=== PATIENT | female | born 1950 | race African-American/Black ===

== ENCOUNTER 2021-01-28 15:00 | Outpatient (RCR) | payer MEDICARE, SELFPAY ==
[2021-01-28 15:14] VITALS: BMI 26.8
[2021-01-28 15:18] VITALS: BMI 26.8
== END 2021-02-01 16:36 | disposition home or self-care (01) ==
LOC: ANHDMC 15:00
PROVIDERS: Visit Provider Internal Medicine Endocrinology, Diabetes & Metabolism
DX: E11.65 Type 2 diabetes mellitus with hyperglycemia (principal); Z71.3 Dietary counseling and surveillance; Z71.89 Other specified counseling
CPT/HCPCS: 97802; G0108; G0109

== ENCOUNTER 2025-02-28 11:21 | Outpatient (CLI) | payer MEDICARE, SELFPAY ==
--- OUTSIDE RECORDS SUMMARY | 2025-02-28 11:37 | XMS_ITS | Clinical Summary ---
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 Gender Identity Not on file Sexual Orientation Not on file Plan of Treatment Health Maintenance Due Date Last Done Comments DEXA Bone Density 1950 Hepatitis C Virus (HCV) Screening 1950 TdaP Immunization 1949 Colonoscopy 1994 Colorectal Cancer Screening 1994 Cologuard 1999 Immunochemical Fecal Occult Blood 1999 Mammogram 1999 Pneumococcal Immunization (5 0+ years) (1 of 1 - PCV) 1999 Zoster Immunization (1 of 2) 1999 Influenza Immunization (#1) 2024 SARS-COV-2 Immunization ( season) 2024 08/19/2021, 01/19/2021, 12/25/2020 Respiratory Syncytial Virus (RSV) Immunization (Adult) (1 - 1-dose 75+ series) 2024 Hepatitis B Immunization Aged Out No longer eligible based on patient's age to complete this topic Meningococcal Immunization (ACWY) Aged Out No longer eligible b ased on patient's age to complete this topic Rotavirus Immunization Aged Out No lo nger eligible based on patient's age to complete this topic
--- OUTSIDE RECORDS SUMMARY | 2025-02-28 11:37 | XMS_ITS | Clinical Summary ---
Author Organization [facility] 1 Address [facility] [place] [address] Care Team Providers Care Informatica Developer Name Role Phone Radha Duff MD Primary Care Provider [phone] Stew Garcia MD Unavailable [phone] Allergies No known active allergies Medications candesartan (ATACAND) 32 mg tabletIndicatio ns:hypertension Take 1 tablet (32 mg total) by mouth every morning 3 Active Voltaren 1 % gelIndications: Osteoarthritis, Pain Apply 2 g topically 4 (four) times a day as needed (pain) 3 Active allopurinoL (ZYLOPRIM) 100 mg tabletIndicatio ns:Recurrent Calcium Renal Calculi Take 1 tablet (100 mg total) by mouth canal lock tender chief operator before breakfast Active baclofen (LIORESAL) 10 mg tabletIndicatio ns:Muscle Spasticity of Spinal Origin Take 1 tablet (10 mg total) by mouth 2 (two) times a day as needed for muscle spasms Active ezetimibe (ZETIA) 10 mg tabletIndicatio ns:hyperlipidem ia Take 1 tablet (10 mg total) by mouth canal lock tender chief operator before breakfast Active rosuvastatin (CRESTOR) 40 mg tabletIndicatio ns:hyperlipidem ia Take 1 tablet (40 mg total) by mouth nightly Active metFORMIN XR (GLUCOPHAGE XR) 500 mg 24 hr tabletIndicatio ns:type 2 diabetes mellitus Take 2 tablets (1,000 mg total) by mouth 2 (two) times a day with meals Active albuterol HFA (PROVENTIL HFA,VENTOLIN HFA,PROAIR HFA) 90 mcg/actuation inhaler Inhale 2 puffs every 4 (four) hours as needed for wheezing or shortness of breath Active lidocaine (LIDODERM) 5 %Indications:Ne uropathic pain Place 2 patches on the skin daily Place 1 patch over the right hip and 1+ over the left shoulder blade. Remove & discard patch within 12 hours or as directed by MD. 60 patch 3 4 Active furosemide (LASIX) 40 mg tabletIndicatio ns:Edema Take 1 tablet (40 mg total) by mouth canal lock tender chief operator before breakfast 4 Active biotin 1 mg capsuleIndicati ons:supplement Take 1 tablet by mouth canal lock tender chief operator before breakfast Active escitalopram (LEXAPRO) 10 mg tabletIndicatio ns:Anxiety with Depression Take 1 tablet (10 mg total) by mouth nightly Active insulin lispro (HumaLOG, ADMELOG) 100 unit/mL pen for injectionIndica tions:type 2 diabetes mellitus Inject 5 Units under the skin 3 (three) times a day before meals Add 1 unit for every 25 BG over 200 Active camphor-methyl salicyl-menthoL adhesive patch,medicated Indications:bashir n Apply 2 patches topically daily as needed (pain) Place 1 patch over the right hip and 1+ over the left shoulder blade. Remove & discard patch within 12 hours or as directed by MD. Active traZODone (DESYREL) 100 mg tabletIndicatio ns:insomnia associated with depression Take 1 tablet (100 mg total) by mouth nightly Active carvediloL (COREG) 25 mg tablet Take 1 tablet (25 mg total) by mouth 2 (two) times a day with meals 60 tablet 11 4 10/22/20 25 Active Additional Information Patient taking differently:25 mg oral 2 times daily with meals (bkfst, dinner),Indications: hypertension, Informant: Self, Reported on 02/05/2025 amLODIPine (NORVASC) 10 mg tablet Take 1 tablet (10 mg total) by mouth daily 30 tablet 11 4 10/23/20 25 Active Additional Information Patient taking differently:10 mg oralDaily (early AM), Indications: hypertension, Informant: Self, Reported on 02/05/2025 aspirin 81 mg enteric coated tabletIndicatio ns:Deep Vein Thrombosis Prevention Take 1 tablet (81 mg total) by mouth daily 30 tablet 11 4 10/23/20 25 Active Additional Information Patient taking differently:81 mg oralDaily (early AM), Indications: prevention of thrombosis, Informant: Self, Reported on 02/05/2025 insulin degludec (TRESIBA) 100 unit/mL (3 mL) pen for injectionIndica tions:type 2 diabetes mellitus Inject 0.2 mL (20 Units total) under the skin nightly Active ketoconazole (NIZORAL) 2 % creamIndication s:tinea pedis Apply 1 Application topically 2 (two) times a day Active sodium chloride (Guido 128) 5 % ophthalmic solutionIndicat ions:Dry eye Administer 1 drop into both eyes 3 (three) times a day Active ticagrelor (BRILINTA) 90 mg tablet Take 1 tablet (90 mg total) by mouth 2 (two) times a day 60 tablet 2 5 Active acetaminophen 500 mg capsuleIndicati ons:Pain Take 2 capsules (1,000 mg total) by mouth every 6 (six) hours as needed for pain 5 Active methylPREDNISol one (MEDROL) 4 mg tablet Take 4 tablets (16 mg total) by mouth daily for 1 day, THEN 3 tablets (12 mg total) daily for 1 day, THEN 2 tablets (8 mg total) daily for 1 day, THEN 1 tablet (4 mg total) daily for 1 day. 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 Rx AT's and Lita, pt not taking. 12/05/24 SPEE and guttae on exam. Assessment & Plan (12/05/2024 7:50 PM GLOBAL SECURITY ARCHITECT): - AT's & warm compress for diffuse SPEE - CTM guttae - RTC 1 y for yearly exams Ischemic stroke 10/20/2024 Orthopedic aftercare 07/09/2024 S/P total right hip arthroplasty 07/09/2024 Anemia 03/03/2024 Type II or unspecified type diabetes mellitus with neurological manifestations, not stated as uncontrolled(250.60) 02/12/2024 Stage 3b chronic kidney disease 01/26/2024 Cervical spinal stenosis 01/26/2024 Neuroforaminal stenosis of cervical spine 2023 Anxiety and depression 01/26/2024 Assessment & Plan (02/02/2024 4:13 PM CDT): Chronic, stable; cont rx lexapo, trazodone Type 2 diabetes mellitus wit h diabetic neuropathy, with long-term current use of insulin 01/26/2024 Assessment & Plan (02/02/2024 4:13 PM CDT): Cont rx insulin degludec, gabapentin, insulin lispro, metformin Type 2 diabetes mellitus wit h hyperglycemia, with long-term current use of insulin 01/26/2024 Bilateral hearing loss 01/25/2024 Neck pain 01/25/2024 Type 2 diabetes mellitus wit h chronic kidney disease, with long-term current use of insulin 01/25/2024 Assessment & Plan (02/02/2024 4:13 PM CDT): Follow up lab ordered Uncontrolled stage 2 hypertension 01/25/2024 Hyperlipidemia 01/25/2024 Assessment & Plan (02/02/2024 4:12 PM CDT): Chronic, stable; cont rx rosuvastatin, ezetimibe Trochanteric bursitis of right hip 10/13/2023 Low back pain 10/13/2023 Assessment & Plan (02/02/2024 4:14 PM CDT): Cont rx gabapentin, lidocaine, meloxicam Primary osteoarthritis of right hip 10/13/2023 Right hip pain 10/13/2023 Solitary pulmonary nodule 12/27/2022 Osteoarthritis 12/08/2021 Heart failure with preserved ejection fraction 0 01/27/2021 Assessment & Plan (02/02/2024 4:12 PM CDT): Chronic, stable; cont rx asa, ezetimibe Cholelithiasis without obstruction 06/04/2019 Overview (01/31/2024): on CT chest 06/04/[address] chest 06/04/19 Sleep apnea 11/21/2018 Overview (01/31/2024): cardiology started CPAP cardiology started CPAP Coronary arteriosclerosis 05/15/2018 Overview (01/31/2024): on chest CT 11/17/[address] 11/17/17 Assessment & Plan (02/02/2024 4:12 PM CDT): Cont asa, zetia, crestor Tobacco use disorder, continuous 05/12/2016 Overview (01/31/2024): told java spring developer he quit smoking on 05/23/18 told java spring developer he quit smoking on 05/23/18 Vitamin D deficiency 05/12/2016 Resolved Problems Problem Noted Date Diagnosed Date Resolved Date Accidental fall from bed 01/26/202411/2023 Gait instability 01/25/2024 02/05/2024 Assessment & Plan (02/02/2024 4:14 PM CDT): I endorse admission to [facility] care. The patient is at risk of injury, illness and a requirement for a higher level of care without this service. The patient needs assistance from the nurses and care team for all activities of daily living including dressing, hygeine of person and toilet, safe transfer and mobility, dietary needs, medication administration, and grooming. The patient will need physical and occupational therapy to progress to a safer level of care. Constipation 01/25/2024 02/05/2024 Dyslipidemia 04/04/2022 02/02/2024 Chronic renal failure 11/11/20162023 Encounters Date Type Department Care Team Description 02/27/2025 Telephone [facility] Neurosurgery [address] [place] [address] [place] [address] Lazaro Flores MD 02/17/2025 12:00 PM CDT Telemedicine [facility] [address] [place] [address], [address] [place] [address] Kamari Reyes MD Neck pain (Primary Dx) 02/05/2025 3:45 PM CDT - 02/06/2025 12:20 PM CDT Hospital Encounter [address] [address] Lazaro Flores MD Roller, Evan Ward, MD Reynolds, Troy Wayne, CRNA Cerebral aneurysm, nonruptured Discharge Disposition: Discharge to home or self care 02/05/2025 11:38 AM CDT Anesthesia Event [facility] Neuro Interventional Radiology [address] [place] [id number] Angelic Hodgson MD Reynolds, Troy Wayne, CRNA 01/30/2025 Orders Only Radiology [address] [place] [id number] Janice Story PA 01/30/2025 Orders Only [facility] Neurosurgery [address] [facility] [place] [address] [place] [address] Lazaro Flores MD 01/29/2025 1:00 PM CDT Pre-Admission Testing [facility] for Preoperative Assessment and Planning [facility] [address] [place] [id number] Preoperative testing (Primary Dx); Bruising; Cerebral aneurysm, nonruptured 12/03/2024 12:00 PM GLOBAL SECURITY ARCHITECT Office Visit [facility] Stroke [address] [place] [address] Ty Mckee NP Cerebrovascular accident (CVA) due to other mechanism (HCC) (Primary Dx); Essential hypertension; Hyperlipidemia LDL goal <70; Hospital discharge follow-up 12/02/2024 1:30 PM GLOBAL SECURITY ARCHITECT Office Visit [facility] Ophthalmology [address] [place] [address] [address] [place] [address] Alana Pathak MD Blurred vision, bilateral (Primary Dx) from Last 3 Months Immunizations Immunization Administration Dates Next Due Influenza, Quadrivalent, Hig h Dose, Preservative Free, Intrr 09/01/2021,08/21/2020 Influenza, Quadrivalent, Spl it, Intramuscular 08/21/2020,08/15/2018,07/22/2016 Influenza, Trivalent, Adjuva nted, Intramuscular 08/07/2018 Influenza, Trivalent, High D ose, Split, Preservative Free, Intramuscular 07/27/2022,08/26/2019,08/14/2017,08/13 Moderna SARS-CoV-2 Monovalen t Vaccination (12+ YRS) 08/06/2021 Pneumococcal Conjugate PCV 13 08/21/2018, 016 Pneumococcal Polysaccharide PPV23 08/21/2020,07/2017,08/13/2017 Tdap 08/06/2018 ZOSTER LIVE 03/05/2019 ZOSTER Recombinant 03/05/2019,12/03/2018 Surgical History Surgery Date Site/Laterality Comments HYSTERECTOMY partial BREAST BIOPSY Left benign APPENDECTOMY 11/06/2003 - 11/05/2004 perforated SECTION x1 COLONOSCOPY normal ANGIO SELECTIVE INTERNAL CAR OTID RIGHT 10/21/2024 Right Medical History Medical History Date Comments Primary osteoarthritis of right hip Anterolisthesis of lumbar spine Lumbar facet arthropathy Hypertension Hypercholesteremia Depression Type 2 diabetes mellitus (HCC) I DDM, wears Dexcom Sleep apnea Family History Medical History Relation Name Comments PONV Daughter Hyperlipidemia Father Hypertension Father Lung cancer Father Lung cancer Father's Brother Colon cancer Mother Heart attack Mother Hyperlipidemia Mother Hypertension Mother Stroke Mother Thyroid disease Mother Heart disease Mother's Brother Stroke Mother's Sister Relation Name Status Comments Daughter Alive Father Father's Brother Mother Mother's Brother Mother's Sister Social History Tobacco Use Types Packs/Day Years Used Date Smoking Tobacco: Former Cigarettes 0.2 20 1 - 2017 Smokeless Tobacco: Never Tobacco Cessation:Counseling Given: Not Answered [facility] Utilities Answer Date Recorded In the past 12 months has th e electric, gas, oil, or water company threatened to shut off services in your home? No 06/25/2024 Social Connection and Isolat ion Panel [NHANES] Answer Date Recorded In a typical week, how many times do you talk on the phone with family, friends, or neighbors? More than three times a week 06/25/2024 How often do you get togethe r with friends or relatives? More than three times a week 06/25/2024 How often do you attend chur ch or taoist services? 1 to 4 times per year 06/25/2024 Do you belong to any clubs o r organizations such as buddhism groups, unions, fraternal or athletic groups, or school groups? No 06/25/2024 How often do you attend meet ings of the clubs or organizations you belong to? Never 06/25/2024 Are you , , di vorced, , never , or living with a partner? 06/25/2024 AUDIT-C Answer Date Recorded Q1: How often do you have a drink containing alcohol? Never 02/05/2025 Q2: How many drinks containi ng alcohol do you have on a typical day when you are drinking? Patient does not drink Q3: How often do you have si x or more drinks on one occasion? Never 02/05/2025 Overall Financial Resource Strain (CARDIA) Answe r Date Recorded How hard is it for you to pa y for the very basics like food, housing, medical care, and heating? Not hard at all 06/25/2024 PHQ-2 Answer Date Recorded PHQ-2 Total Score (If total score is 3 or more points, staff should administer the PHQ-9) 0 10/21/2024 Hunger Vital Sign Answer Date Recorded Within the past 12 months, y ou worried that your food would run out before you got the money to buy more. Never true 06/25/20 24 Within the past 12 months, t he food you bought just didn't last and you didn't have money to get more. Never true 06/25/2024 PRAPARE - Transportation Answer Date Re corded In the past 12 months, has l ack of transportation kept you from medical appointments or from getting medications? No 06/07 In the past 12 months, has l ack of transportation kept you from meetings, work, or from getting things needed for daily living? No 06/25/2024 Housing Stability Vital Sign Answer Chito e Recorded In the last 12 months, was t here a time when you were not able to pay the mortgage or rent on time? No 01/26/2024 In the last 12 months, how many places have you lived? 1 01/26/2024 In the last 12 months, was t here a time when you did not have a steady place to sleep or slept in a group home (including now)? No 01/26/2024 Housing Stability Vital Sign Answer Chito e Recorded In the last 12 months, was t here a time when you were not able to pay the mortgage or rent on time? No 06/25/2024 In the past 12 months, how m any times have you moved where you were living? 0 06/25/2024 At any time in the past 12 m [facility], were you homeless or living in a group home (including now)? No 06/25/2024 Personal Safety Answer Date Recorded Have you ever been in or are you currently in a harmful physical or emotional relationship or is someone making you feel afraid or unsafe? Denies 02/05/2025 Comments No Sex and Gender Information Value Date Recorded Sex Assigned at Not on file Legal Sex Female 8:50 PM GLOBAL SECURITY ARCHITECT Gender Identity Not on file Sexual Orientation Not on file Obstetrics History Para Term AB IAB SAB Ectopic Multiple Livin g Live Births 4 4 4 Date Outcome GA Total Labor Labor/2nd/3rd Weight Sex Type Anes PTL Kala A1 A5 Name Clin Term Term Term Term Last Filed Vital Signs Vital Sign Reading Time Taken Comments Blood Pressure 149/80 02/06/2025 10:00 AM CDT Pulse 89 02/06/2025 10:00 AM CDT Temperature 37.2 C (99 F) 02/06/2025 10:07 AM CDT Respiratory Rate 17 02/06/2025 10:00 AM CDT Oxygen Saturation 98% 02/06/2025 10:00 AM CDT Inhaled Oxygen Concentration - - Weight 84.6 kg (186 lb 8.2 oz) 01/29/2025 1:15 P M CDT Height 167.6 cm (5' 6 ) 01/29/2025 1:15 PM CDT Body Mass Index 30.1 01/29/2025 1:15 PM CDT Plan of Treatment Health Maintenance Due Date Last Done Comments Albumin Creatinine Ratio, Urine 1950 Colon Cancer Screening-Colonoscopy 1950 Hepatitis C Screening 1950 Foot Exam 1950 Hepatitis B Screening 1967 Well Visit 65+ 2014 Covid-19 Vaccine (2023-2 5 season) 2024 08/19/2021, 08/06/2021, 01/19/2021, Additional history exists Influenza Vaccine (Season Ended) 2025 07/27/2022, 09/01/2021, 08/21/2020, Additional history exists Hemoglobin A1C 08/01/2025 01/29/2025, 10/06, 06/10/2024, Additional history exists Osteoporosis Screening-Bone Density Scan 10/19/2025 10/19/2023, 06/21/2021, 06/14/2021, Additional history exists Depression Screening 10/20/2025 10/20/2024 Lipid Panel 10/20/2025 10/20/2024 Dilated Eye Exam 12/02/2025 12/02/2024, 10/21/2024 eGFR 01/29/2026 01/29/2025, 10/06, 10/20/2024, Additional history exists Fall Risk Assessment 02/06/2026 02/06/2025 DTaP/Tdap/Td Vaccine (2 - Td or Tdap) 08/06/2028 08/06/2018 Zoster Vaccine Completed 03/05/2019, 02/06, 12/03/2018 Pneumococcal vaccine 65+ Completed 020, 08/21/2018, 08/14/2017, Additional history exists Breast Cancer Screening-Mammogram Discontinued 05/29/2024, 03/27/2023, 12/22/2021, Additional history exists Medical Devices Implanted Type Area Intranet Support Device Identifier Shelf Expiration Date Model / Serial / Lot [employer] Trilogy 6.5mm 35mm Self Tap Screw Bone [id number] - [id number] Implanted:Qty: 1 on 06/24/2024 by Marc Matthews MD at [facility] Right: Hip [employer] [id number] 10/19/2033 [id number] / / [id number] [employer] G7 54mm Limit Hole Color Coded Hip F Offset Hemisphere Shell [id number] - [id number] Implanted:Qty: 1 on 06/24/2024 by Marc Matthews MD at [facility] Right: Hip [employer] [id number] 04/02/2034 [id number] / / [id number] [employer] G7 44mm 2 Mobility Hip F Liner Acetabular [id number] - [id number] Implanted:Qty: 1 on 06/24/2024 by Marc Matthews MD at [facility] Right: Hip [employer] [id number] 01/12/2034 [id number] / / [id number] [employer] Trilogy 6.5mm 30mm Self Tap Acetabular Cortical Screw Bone [id number] - [id number] Implanted:Qty: 1 on 06/24/2024 by Marc Matthews MD at [facility] Right: Hip [employer] [id number] 12/02/2033 [id number] / / [id number] [employer] Echo Bi-Metric Microplasty 10mm 101.5mm Full Proximal Profile Hip [id number] - [id number] Implanted:Qty: 1 on 06/24/2024 by Marc Matthews MD at [facility] Right: Hip [employer] [id number] 09/03/2030 [id number] / / [id number] [employer] Liner Acetabular Hip Longevity 07j88br Polyethylene [id number] - [id number] Implanted:Qty: 1 on 06/24/2024 by Marc Matthews MD at [facility] Right: Hip [employer] [id number] 04/08/2029 [id number] / / [id number] [employer] G7 28mm Type 1 Modular Hip Acetabular 0mm Offset Head Femoral 650-1158 - [id number] Implanted:Qty: 1 on 06/24/2024 by Marc Matthews MD at [facility] Right: Hip [employer] [id number] 05/15/2033 [id number] / / [id number] [employer] Stent Coil Embo With Shield Technology Pipeline 4.5x14mm Ped2-450-14 - [id number] Implanted:Qty: 1 on 02/05/[address] [facility] [employer] 07/25/2025 PED2-4 50-14 / / [id number] Procedures Procedure Name Priority Date/Time Associated Diagnosis Comments POCT GLUCOSE DEVICE Routine 02/06/2025 8 :13 AM CDT POCT GLUCOSE DEVICE Routine 02/05/2025 8 :23 PM CDT POCT GLUCOSE DEVICE Routine 02/05/2025 5 :17 PM CDT POCT GLUCOSE DEVICE Routine 02/05/2025 2 :31 PM CDT IR PERMANENT OCCLUSION OR EMBOLIZATION PERCUTANEOUS BMET Schedule Routine, Read Routine (OP Routine) 02/05/2025 2:03 PM CDT Cerebral aneurysm, nonruptured CO AN PROCEDURE PLACEHOLDER Routine 02/05/2025 12:33 PM CDT CO AN ELECTIVE ENDOTRACHEAL AIRWAY Routine 02/05/2025 12:33 PM CDT POCT ACTIVATED CLOTTING TIME, LOW RANGE Routine 02/05/2025 12:32 PM CDT CO AN PROCEDURE PLACEHOLDER Routine 02/05/2025 12:26 PM CDT CO AN PROCEDURE PLACEHOLDER Routine 02/05/2025 12:25 PM CDT POCT ACTIVATED CLOTTING TIME, LOW RANGE Routine 02/05/2025 12:13 PM CDT POCT GLUCOSE DEVICE Routine 02/05/2025 1 1:05 AM CDT VERIFY NOW CLOPIDOGREL Routine 02/05/2025 10:56 AM CDT EGFR Routine 01/29/2025 2:26 PM CDT Cerebral aneurysm, nonruptured DIFFERENTIAL AUTO Routine 01/29/2025 2:2 6 PM CDT Cerebral aneurysm, nonruptured BASIC METABOLIC PANEL Routine 01/29/2025 2:26 PM CDT Cerebral aneurysm, nonruptured CBC WITH AUTO DIFFERENTIAL Routine 01/29/2025 2:26 PM CDT Cerebral aneurysm, nonruptured CPAP APTT ALGORITHM Routine 01/29/2025 2 :26 PM CDT Preoperative testing PROTIME-INR Routine 01/29/2025 2:26 PM CDT Preoperative testing Bruising VERIFY NOW CLOPIDOGREL Routine 01/29/2025 2:26 PM CDT Cerebral aneurysm, nonruptured POCT HEMOGLOBIN A1C Routine 01/29/2025 2 :00 PM CDT LIPID PANEL Routine 10/20/2024 11:40 PM GLOBAL SECURITY ARCHITECT SCREENING MAMMOGRAM BILATERAL W ANKIT Schedule Routine, Read Routine (OP Routine) 05/29/2024 1:11 PM CDT Screening mammogram, encounter for DEXA AXIAL SKELETON BONE DENSITY 1 OR MORE SITES Schedule Routine, Read Routine (OP Routine) 10/19/2023 2:04 PM GLOBAL SECURITY ARCHITECT Asymptomatic menopausal state from Last 3 Months or Most Recently Relevant to Health Maintenance Results * (ABNORMAL) POCT glucose (02/06/2025 8:13 AM CDT) Glucose, POC 218(H) 70 - 199 mg/dL Blood 02/06/2025 8:13 AM CDT 02/06/2025 8:13 AM CDT Lazaro Flores MD LAB POCT ORDERABLES - DEVICE Final Result Performing Organization Address [facility] Co de Phone Number [facility] [place] [address] * (ABNORMAL) POCT glucose (02/05/2025 8:23 PM CDT) Glucose, POC 210(H) 70 - 199 mg/dL Blood 02/05/2025 8:23 PM CDT 02/05/2025 8:23 PM CDT Lazaro Flores MD LAB POCT ORDERABLES - DEVICE Final Result Performing Organization Address [facility] de Phone Number [facility] [employer] [place] [address] * POCT glucose (02/05/2025 5:17 PM CDT) Glucose, POC 99 70 - 199 mg/dL Blood 02/05/2025 5:17 PM CDT 02/05/2025 5:17 PM CDT Lazaro Flores MD LAB POCT ORDERABLES - DEVICE Final Result Performing Organization Address [facility] Co de Phone Number [facility] [employer] [place] [address] * POCT glucose (02/05/2025 2:31 PM CDT) Glucose, POC 106 70 - 199 mg/dL Blood 02/05/2025 2:31 PM CDT 02/05/2025 2:31 PM CDT Lazaro Flores MD LAB POCT ORDERABLES - DEVICE Final Result JOSIE Penny [facility] Department [place] [address] * IR Permanent Occlusion or Embolization BMET (02/05/2025 2:03 PM CDT) Anatomical Region Laterality Modality Radio Fluoroscop y 02/06/2025 8:52 AM CDT Impressions 02/12/2025 6:20 PM CDT 1. Initial angiography demonstrated a medially projecting paraophthalmic left ICA aneurysm measuring 7 x 4.5 mm with a 4 mm neck. There are no secondary/daughter lobules and no evidence of any arterial branches arising from the aneurysm dome. 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 There is also a 1.5 x 1.5 mm infundibulum associated with the left anterior choroidal artery. 2. Successful Pipeline Flex flow diversion embolization of the patient's left paraophthalmic ICA aneurysm with a 4.5 x 14 mm flow diversion embolization device. 3. Final angiography demonstrated contrast stasis within the left paraophthalmic segment ICA aneurysm consistent with satisfactory embolization with no evidence of thromboembolic complication. There was good apposition of flow diversion embolization device to the vessel wall with no evidence of in-device stenosis. Balloon-angioplasty of the flow diverter was performed to open the distal end of the device. These results were discussed with the patient and patient's family upon conclusion of the case. Dictated by: Antoni Hendricks M.D. The radiology attending physician has personally reviewed this study, and had reviewed and/or edited this written report and agrees with it. Electronically signed by: Lazaro Flores M.D. Narrative 02/12/2025 6:20 PM CDT ENDOVASCULAR EMBOLIZATION OF LEFT INTERNAL CAROTID ARTERY PARAOPHTHALMIC ANEURYSM UTILIZING FLOW DIVERSION CLINICAL INDICATION: This is a 74 year old female with known left paraophthalmic ICA aneurysm. She presents for endovascular embolization utilizing flow diversion. PROCEDURE: 1. Transarterial embolization, central nervous system: flow diverter embolization of left internal carotid artery aneurysm 2. Cerebral angiography: left common carotid artery, left internal carotid artery injections 3. 3D reconstructions 4. Ultrasound-guided vascular access ATTENDING PHYSICIAN: Lazaro Flores MD. He was present for the entire procedure. ASSISTING PHYSICIANS: MD Bj Kwon MD ANESTHESIA: General anesthesia DEVICES: 21-gauge needle 7 Macanese Merit Prelude IDeal sheath 23cm Terumo Glidewire Rist 079 guide catheter Rist 5.5F Sim select catheter Apro 55 intermediate catheter 120 cm Phenom 27 microcatheter 150 cm Synchro SELECT 014 microwire Pipeline Flex 4.5 x 14 mm Hyperform 4 x 7 mm balloon microcatheter X-pedion-10 microwire TR Band MEDICATIONS: Medications were administered by the department of anesthesiology and are included in the MAR. Radial artery cocktail: Verapamil (2.5 mg), Nitroglycerin (200 mcg), and Heparin (3000 units) 6500 units of intravenous heparin were administered. CONTRAST: Visipaque-320 100 mL ESTIMATED BLOOD LOSS: 20 mL COMPLICATIONS: None TECHNIQUE: Prior to the procedure, the technical aspects of the procedure, as well as benefits, potential risks and alternate options, were explained to the patient. Specifically, the risks of cerebral infarction, hemorrhage, weakness, paralysis, sensory changes, vision decline/blindness, cranial nerve palsy, facial pain, anaphylaxis, renal failure, access site hematoma, arterial dissection, arterial pseudoaneurysm, arteriovenous fistula, coma or even were discussed with the patient in person. Informed consent was obtained. General anesthesia was provided by the Department of Anesthesiology for the duration of the case. The patient was prepared and draped in the standard sterile fashion. The right forearm was prepped and draped in the usual fashion. Access to the vascular system was gained in the usual way by a single-wall puncture of the right radial artery at the anatomical snuff box utilizing ultrasound guidance. The 7 Macanese sheath was then introduced into the right radial artery over the mini guidewire. A cocktail of Verapamil (2.5 mg), Nitroglycerin (200 mcg), and Heparin (3000 units) was slowly injected into the right radial artery through the sheath over several minutes, with close monitoring of blood pressure. A baseline ACT was measured and IV heparin administered with periodic ACT checks to maintain goal range of 250-300. The Rist 079 guide catheter with Rist Cristina 2 catheter over a Terumo Glidewire was advanced into the long sheath and into the aortic arch under fluoroscopic visualization and was used select the left internal carotid artery. The long sheath was advanced to the petrous segment and the Cristina 2 catheter and Glidewire were removed. Digital angiograms were performed, centered over the head and neck with AP, lateral, and oblique views. 3D ROTATIONAL ANGIOGRAPHY OF THE LEFT INTERNAL CAROTID ARTERY: Rotational angiography was also performed from the guiding catheter for better delineation of the left internal carotid artery aneurysm. Three-dimensional angiographic images were processed on an independent workstation, and volume-rendered three-dimensional images were produced and reviewed by the attending physician. A working projection was obtained. Contrast was injected into the long sheath positioned within the petrous ICA for imaging centered over the aneurysm in working projection. A coaxial assembly of [employer] Apro 55 intermediate catheter with Phenom 27 microcatheter and Synchro select 014 microwire was prepared in standard fashion over series of rotating hemostatic valves connected to a regulated pressurized infusion of heparinized saline. This coaxial assembly was gently advanced into the long sheath within the left internal carotid artery under roadmap guidance and the microcatheter and microwire assembly was advanced into the left middle cerebral artery. The intermediate catheter was advanced into the cavernous segment internal carotid artery. The microwire was then removed. A 4.5 x 14 mm Pipeline Flex embolization device was then advanced through the microcatheter. Under continuous fluoroscopic visualization, the Pipeline Flex device was carefully deployed across the aneurysm. Throughout deployment interval injections of contrast into the intermediate catheter for imaging centered over the aneurysm in working projection were obtained. Still series images were also obtained intermittently through the deployment. The proximal end of the device was positioned in the cavernous segment and the distal end in the terminal segment near the origin of the anterior choroidal artery but not fully covering the vessel. Immediately after deployment of the Pipeline Flex flow diversion device, angiography demonstrates good opening of the proximal segment of the device with narrowing of the distal end. We attempted to open up the distal end of the device using a microwire with a J-shape as well as advancing the intermediate catheter with mild improvement in the narrowing. We elected to proceed with post-deployment balloon angioplasty. An additional 1000 units IV heparin was administered. A Hyperform balloon catheter with X-pedion 10 was prepared on the back table using 50:50 contrast: saline ratio in standard fashion. The balloon catheter was advanced through the intermediate catheter towards the distal end of the pipeline device using fluoroscopic guidance. The balloon was inflated at three separate points along the distal end of the device. The catheter and microwire was then removed. Angiography through the intermediate catheter demonstrated good vessel wall apposition of the stent with good antegrade flow without thrombotic complication. The intermediate catheter was removed and the guide catheter was withdrawn into the cervical ICA. Contrast was injected into the long sheath positioned within the left internal carotid artery for imaging centered over the head in AP and lateral projections. This revealed contrast stasis within the left internal carotid artery aneurysm consistent with satisfactory embolization with no evidence of thromboembolic complication. There was good apposition of the flow diversion embolization device to the vessel wall. The catheter was then removed and closed with a TR band. There were no immediate complications. The patient was transported to the post anesthesia care unit, extubated, in unchanged neurological condition. FINDINGS: LEFT COMMON CAROTID ARTERY, CERVICAL: The bifurcation is smooth, without irregularity, calcification, or stenosis with respect to the distal left internal carotid artery. There is normal opacification of left cervical external carotid artery branches. LEFT INTERNAL CAROTID ARTERY, CEREBRAL: There is a medially projecting paraophthalmic left ICA aneurysm measuring 7 x 4.5 mm with a 4 mm neck. There are no secondary/daughter lobules and no evidence of any arterial branches arising from the aneurysm dome. 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 There is also a 1.5 x 1.5 mm infundibulum associated with the left anterior choroidal artery. 3D ROTATIONAL ANGIOGRAPHY OF THE LEFT INTERNAL CAROTID ARTERY: 3D Rotational angiography with volume-rendered three-dimensional reconstruction on an independent workstation demonstrated 7 x 4.5 mm paraophthalmic ICA aneurysm. LEFT INTERNAL CAROTID ARTERY, CEREBRAL (POST FLOW DIVERSION AND ANGIOPLASTY): There is contrast stasis within the left paraophthalmic ICA aneurysm consistent with satisfactory embolization with no evidence of thromboembolic complication. There is good antegrade flow through the stent. There was good apposition of the flow diversion embolization device to the vessel wall, with significant improvement of the distal end opening after angioplasty. Procedure Note Lazaro Flores MD - 02/12/2025 ENDOVASCULAR EMBOLIZATION OF LEFT INTERNAL CAROTID ARTERY PARAOPHTHALMIC ANEURYSM UTILIZING FLOW DIVERSION CLINICAL INDICATION: This is a 74 year old female with known left paraophthalmic ICA aneurysm. She presents for endovascular embolization utilizing flow diversion. PROCEDURE: 1. Transarterial embolization, central nervous system: flow diverter embolization of left internal carotid artery aneurysm 2. Cerebral angiography: left common carotid artery, left internal carotid artery injections 3. 3D reconstructions 4. Ultrasound-guided vascular access ATTENDING PHYSICIAN: Lazaro Flores MD. He was present for the entire procedure. ASSISTING PHYSICIANS: MD Bj Kwon MD ANESTHESIA: General anesthesia DEVICES: 21-gauge needle 7 Macanese Merit Prelude IDeal sheath 23cm Terumo Glidewire Rist 079 guide catheter Rist 5.5F Sim select catheter Apro 55 intermediate catheter 120 cm Phenom 27 microcatheter 150 cm Synchro SELECT 014 microwire Pipeline Flex 4.5 x 14 mm Hyperform 4 x 7 mm balloon microcatheter X-pedion-10 microwire TR Band MEDICATIONS: Medications were administered by the department of anesthesiology and are included in the MAR. Radial artery cocktail: Verapamil (2.5 mg), Nitroglycerin (200 mcg), and Heparin (3000 units) 6500 units of intravenous heparin were administered. CONTRAST: Visipaque-320 100 mL ESTIMATED BLOOD LOSS: 20 mL COMPLICATIONS: None TECHNIQUE: Prior to the procedure, the technical aspects of the procedure, as well as benefits, potential risks and alternate options, were explained to the patient. Specifically, the risks of cerebral infarction, hemorrhage, weakness, paralysis, sensory changes, vision decline/blindness, cranial nerve palsy, facial pain, anaphylaxis, renal failure, access site hematoma, arterial dissection, arterial pseudoaneurysm, arteriovenous fistula, coma or even were discussed with the patient in person. Informed consent was obtained. General anesthesia was provided by the Department of Anesthesiology for the duration of the case. The patient was prepared and draped in the standard sterile fashion. The right forearm was prepped and draped in the usual fashion. Access to the vascular system was gained in the usual way by a single-wall puncture of the right radial artery at the anatomical snuff box utilizing ultrasound guidance. The 7 Macanese sheath was then introduced into the right radial artery over the mini guidewire. A cocktail of Verapamil (2.5 mg), Nitroglycerin (200 mcg), and Heparin (3000 units) was slowly injected into the right radial artery through the sheath over several minutes, with close monitoring of blood pressure. A baseline ACT was measured and IV heparin administered with periodic ACT checks to maintain goal range of 250-300. The Rist 079 guide catheter with Rist Cristina 2 catheter over a Terumo Glidewire was advanced into the long sheath and into the aortic arch under fluoroscopic visualization and was used select the left internal carotid artery. The long sheath was advanced to the petrous segment and the Cristina 2 catheter and Glidewire were removed. Digital angiograms were performed, centered over the head and neck with AP, lateral, and oblique views. 3D ROTATIONAL ANGIOGRAPHY OF THE LEFT INTERNAL CAROTID ARTERY: Rotational angiography was also performed from the guiding catheter for better delineation of the left internal carotid artery aneurysm. Three-dimensional angiographic images were processed on an independent workstation, and volume-rendered three-dimensional images were produced and reviewed by the attending physician. A working projection was obtained. Contrast was injected into the long sheath positioned within the petrous ICA for imaging centered over the aneurysm in working projection. A coaxial assembly of [employer] Apro 55 intermediate catheter with Phenom 27 microcatheter and Synchro select 014 microwire was prepared in standard fashion over series of rotating hemostatic valves connected to a regulated pressurized infusion of heparinized saline. This coaxial assembly was gently advanced into the long sheath within the left internal carotid artery under roadmap guidance and the microcatheter and microwire assembly was advanced into the left middle cerebral artery. The intermediate catheter was advanced into the cavernous segment internal carotid artery. The microwire was then removed. A 4.5 x 14 mm Pipeline Flex embolization device was then advanced through the microcatheter. Under continuous fluoroscopic visualization, the Pipeline Flex device was carefully deployed across the aneurysm. Throughout deployment interval injections of contrast into the intermediate catheter for imaging centered over the aneurysm in working projection were obtained. Still series images were also obtained intermittently through the deployment. The proximal end of the device was positioned in the cavernous segment and the distal end in the terminal segment near the origin of the anterior choroidal artery but not fully covering the vessel. Immediately after deployment of the Pipeline Flex flow diversion device, angiography demonstrates good opening of the proximal segment of the device with narrowing of the distal end. We attempted to open up the distal end of the device using a microwire with a J-shape as well as advancing the intermediate catheter with mild improvement in the narrowing. We elected to proceed with post-deployment balloon angioplasty. An additional 1000 units IV heparin was administered. A Hyperform balloon catheter with X-pedion 10 was prepared on the back table using 50:50 contrast: saline ratio in standard fashion. The balloon catheter was advanced through the intermediate catheter towards the distal end of the pipeline device using fluoroscopic guidance. The balloon was inflated at three separate points along the distal end of the device. The catheter and microwire was then removed. Angiography through the intermediate catheter demonstrated good vessel wall apposition of the stent with good antegrade flow without thrombotic complication. The intermediate catheter was removed and the guide catheter was withdrawn into the cervical ICA. Contrast was injected into the long sheath positioned within the left internal carotid artery for imaging centered over the head in AP and lateral projections. This revealed contrast stasis within the left internal carotid artery aneurysm consistent with satisfactory embolization with no evidence of thromboembolic complication. There was good apposition of the flow diversion embolization device to the vessel wall. The catheter was then removed and closed with a TR band. There were no immediate complications. The patient was transported to the post anesthesia care unit, extubated, in unchanged neurological condition. FINDINGS: LEFT COMMON CAROTID ARTERY, CERVICAL: The bifurcation is smooth, without irregularity, calcification, or stenosis with respect to the distal left internal carotid artery. There is normal opacification of left cervical external carotid artery branches. LEFT INTERNAL CAROTID ARTERY, CEREBRAL: There is a medially projecting paraophthalmic left ICA aneurysm measuring 7 x 4.5 mm with a 4 mm neck. There are no secondary/daughter lobules and no evidence of any arterial branches arising from the aneurysm dome. 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 There is also a 1.5 x 1.5 mm infundibulum associated with the left anterior choroidal artery. 3D ROTATIONAL ANGIOGRAPHY OF THE LEFT INTERNAL CAROTID ARTERY: 3D Rotational angiography with volume-rendered three-dimensional reconstruction on an independent workstation demonstrated 7 x 4.5 mm paraophthalmic ICA aneurysm. LEFT INTERNAL CAROTID ARTERY, CEREBRAL (POST FLOW DIVERSION AND ANGIOPLASTY): There is contrast stasis within the left paraophthalmic ICA aneurysm consistent with satisfactory embolization with no evidence of thromboembolic complication. There is good antegrade flow through the stent. There was good apposition of the flow diversion embolization device to the vessel wall, with significant improvement of the distal end opening after angioplasty. IMPRESSION: 1. Initial angiography demonstrated a medially projecting paraophthalmic left ICA aneurysm measuring 7 x 4.5 mm with a 4 mm neck. There are no secondary/daughter lobules and no evidence of any arterial branches arising from the aneurysm dome. 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 There is also a 1.5 x 1.5 mm infundibulum associated with the left anterior choroidal artery. 2. Successful Pipeline Flex flow diversion embolization of the patient's left paraophthalmic ICA aneurysm with a 4.5 x 14 mm flow diversion embolization device. 3. Final angiography demonstrated contrast stasis within the left paraophthalmic segment ICA aneurysm consistent with satisfactory embolization with no evidence of thromboembolic complication. There was good apposition of flow diversion embolization device to the vessel wall with no evidence of in-device stenosis. Balloon-angioplasty of the flow diverter was performed to open the distal end of the device. These results were discussed with the patient and patient's family upon conclusion of the case. Dictated by: Antoni Hendricks M.D. The radiology attending physician has personally reviewed this study, and had reviewed and/or edited this written report and agrees with it. Electronically signed by: Lazaro Flores M.D. Lazaro Flores MD IMG IR PROCEDURES Aleksandra l Result * CO AN ELECTIVE ENDOTRACHEAL AIRWAY, CO AN PROCEDURE PLACEHOLDER (02/05/2025 12:33 PM CDT) Narrative Hernando Lester CRNA - 02/05/2025 12:33 PM CDT Hernando Lester CRNA 02/05/2025 12:34 PM Airway Urgency: elective Date/time: 02/05/2025 11:55 AM Indications for airway management: anesthesia Difficult airway: no Staff: Supervising provider: Tal Torres MD Placed by: IRRADIATED FUEL HANDLER: Hernando Lester CRNA Emergent airway documentation: Risks and benefits discussed: yes Consent obtained: yes Consent given by: patient Airway prep: Preoxygenated: yes Patient position: sniffing Mask difficulty assessment: 1 - vent by mask Spontaneous ventilation during airway: absent Sedation level during airway: GA Final airway details: Final airway type: endotracheal airway Tube type: ETT ETT size: 7.0 mm Cuffed: yes Technique used for successful ETT placement: video laryngoscopy Devices/Methods used in placement: stylet Insertion site: oral Blade type: Jamie Video blade type: Moon Blade size: 3 Cormack-Lehane (video): grade I - full view of glottis Cuff inflated with: air ETT to lips: 21 cm Placement verified by: auscultation and CO2 detection Airway secured with: silk tape Number of attempts: 1 Tal Torres MD ANESTHESIA ORDERABLES Final Result * (ABNORMAL) POCT Activated clotting time, low range (02/05/2025 12:32 PM CDT) ACT 292(H) 123 - 168 sec POC Performer [id number] [facility] POC Device Number [id number] [facility] Blood 02/05/2025 12:3 2 PM CDT 02/05/2025 12:32 PM CDT Hernando Lester CRNA LAB POCT ORDERABLES - D EVICE Final Result [facility] Department [place] [address] * CO AN PROCEDURE PLACEHOLDER (02/05/2025 12:26 PM CDT) Narrative Hernando Lester CRNA - 02/05/2025 12:26 PM CDT Hernando Lester CRNA 02/05/2025 12:27 PM Peripheral IV Catheter End time: 02/05/2025 12:01 PM Staff: Supervising provider: Tal Torres MD Placed by: MEHUL: Hernando Lester CRNA Preprocedure prep: Prep solution: chlorhexadine PPE: gloves and provider hat/mask PIV line: Laterality: left Site: wrist Catheter size: 20 g Technique: direct visualization Procedure details: good blood return and occlusive dressing applied Number of attempts: 1 Assessment: Events: patient tolerated procedure well with no complications Tal Torres MD ANESTHESIA ORDERABLES Final Result * CO AN PROCEDURE PLACEHOLDER (02/05/2025 12:25 PM CDT) Narrative Hernando Lester CRNA - 02/05/2025 12:25 PM CDT Hernando Lester CRNA 02/05/2025 12:26 PM Peripheral IV Catheter Patient location: pre-op holding End time: 02/05/2025 11:35 AM Staff: Supervising provider: Tal Torres MD Placed by: IRRADIATED FUEL HANDLER: Hernando Lester CRNA Preprocedure prep: Prep solution: chlorhexadine PPE: provider hat/mask PIV line: Laterality: right Site: hand Catheter size: 22 g Technique: direct visualization Procedure details: good blood return and occlusive dressing applied Number of attempts: 1 Assessment: Events: patient tolerated procedure well with no complications Tal Torres MD ANESTHESIA ORDERABLES Final Result * POCT Activated clotting time, low range (02/05/2025 12:13 PM CDT) [facility] ACT 137 123 - 168 sec POC Performer [id number] [facility] POC Device Number [id number] [facility] Blood 02/05/2025 12:1 3 PM CDT 02/05/2025 12:13 PM CDT Hernando Lester IRRADIATED FUEL HANDLER LAB POCT ORDERABLES - D EVICE Final Result Performing Organization Address [facility] de Phone Number [facility] Department of [employer] [place] [employer] [place] [address] * POCT glucose (02/05/2025 11:05 AM CDT) [facility] Signature Glucose, POC 126 70 - 199 mg/dL Blood 02/05/2025 11:0 5 AM CDT 02/05/2025 11:05 AM CDT Hernando Lester CRNA LAB POCT ORDERABLES - D EVICE Final Result Performing Organization Address [facility] Co de Phone Number [facility] Department [place] [address] * Ver[employer]Now clopidogrel (02/05/2025 10:56 AM CDT) [employer] clopidogrel 68 PRU Comment: Interpretive Data Reference interval from adults not taking Plavix is 169-356 PRU. Output is reported in Plavix reaction units (PRU). A lower PRU indicates a more complete inhibition of P2Y12 ADP receptor by drugs such as clopidogrel or prasugrel. There is no consensus regarding a cut-off value for PRU when assessing patients' sensitivity to ADP P2Y12 receptor inhibitors. Clinicians should use this information based on their interpretation of currently available evidence to individualize patient management decisions. Conditions that may produce falsely low PRU results include anemia (Hct <29%) and thrombocytopenia (platelet count <90,000/mcL). Platelet responsiveness to Plavix should not be performed within 48 hours of treatment with GPIIbIIIa inhibitors etifibatide (Integrilin) or tirofiban (Aggrastat) or within 2 weeks of treatment with abciximab (Reopro). Current interpretive data was last revised on 2017. Blood 02/05/2025 10:5 6 AM CDT 02/05/2025 11:36 AM CDT Narrative [facility] - 02/05/2025 12:06 PM CDT DRAW IN POD E us Lazaro Flores MD LAB BLOOD ORDERABLES F inal Result [facility] Department [place] [address] * (ABNORMAL) eGFR (01/29/2025 2:26 PM CDT) eGFR 33(L) >=60 mL/min/1. 73 m2 Comment: Interpretive Data Reference Interval Normal >/= 90 mL/min/1.73m2 Mildly decreased* 60 - 89 mL/min/1.73m2 Mildly to moderately decreased 45 - 59 mL/min/1.73m2 Moderately to severely decreased 30 - 44 mL/min/1.73m2 Severely decreased 15 - 29 mL/min/1.73m2 Kidney Failure < 15 mL/min/1.73m2 *Relative to young adult level Estimated glomerular filtration rate is determined by the 2020 CKD-EPI equation recommended by the [employer] (A Unifying Approach to GFR Estimation: Recommendations of the NKF-ASK Task Force on Reassessing the Inclusion of Race in Diagnosing Kidney Disease, JASN 2020). The CKD-EPI equation should not be used for patients with unstable renal function and has not been validated in children and those over 70. Current interpretive data was last reviewed 2021. Blood 01/29/2025 2:26 PM CDT 01/29/2025 3:45 PM CDT Lazaro Flores MD LAB BLOOD ORDERABLES F inal Result [facility] Department [place] [address] * Differential, auto (01/29/2025 2:26 PM CDT) Pathologist [facility] Neutrophil abs 3.4 1.5 - 6.5 K/cumm Imm gran abs 0.0 0.0 - 0.1 K/cumm [facility] Lymphocyte abs 1.5 0.8 - 3.3 K/cumm [facility] Monocyte abs 0.6 0.2 - 0.8 K/cumm [facility] Eosinophil abs 0.2 0.0 - 0.5 K/cumm [facility] Basophil abs 0.0 0.0 - 0.1 K/cumm [facility] Neutrophil pct 60.0 % [facility] Comment: Interpretive Data Percent cell count reference ranges are not reported, since discordance with absolute values may lead to misinterpretation of CBC data. Current Interpretive Data was last revised on 2018. Imm gran pct 0.2 % [facility] Comment: Interpretive Data Percent cell count reference ranges are not reported, since discordance with absolute values may lead to misinterpretation of CBC data. Current Interpretive Data was last revised on 2018. Lymphocyte pct 25.7 % [facility] Comment: Interpretive Data Percent cell count reference ranges are not reported, since discordance with absolute values may lead to misinterpretation of CBC data. Current Interpretive Data was last revised on 2018. Monocyte pct 9.6 % [facility] Comment: Interpretive Data Percent cell count reference ranges are not reported, since discordance with absolute values may lead to misinterpretation of CBC data. Current Interpretive Data was last revised on 2018. Eosinophil pct 4.0 % [facility] Comment: Interpretive Data Percent cell count reference ranges are not reported, since discordance with absolute values may lead to misinterpretation of CBC data. Current Interpretive Data was last revised on 2018. Basophil pct 0.5 % [facility] Comment: Interpretive Data Percent cell count reference ranges are not reported, since discordance with absolute values may lead to misinterpretation of CBC data. Current Interpretive Data was last revised on 2018. Blood 01/29/2025 2:26 PM CDT 01/29/2025 3:46 PM CDT Lazaro Deborah Flores MD LAB BLOOD ORDERABLES F inal Result [facility] Department [place] [address] * Ver[facility]Now clopidogrel (01/29/2025 2:26 PM CDT) [facility] clopidogrel 275 PRU Comment: Interpretive Data Reference interval from adults not taking Plavix is 169-356 PRU. Output is reported in Plavix reaction units (PRU). A lower PRU indicates a more complete inhibition of P2Y12 ADP receptor by drugs such as clopidogrel or prasugrel. There is no consensus regarding a cut-off value for PRU when assessing patients' sensitivity to ADP P2Y12 receptor inhibitors. Clinicians should use this information based on their interpretation of currently available evidence to individualize patient management decisions. Conditions that may produce falsely low PRU results include anemia (Hct <29%) and thrombocytopenia (platelet count <90,000/mcL). Platelet responsiveness to Plavix should not be performed within 48 hours of treatment with GPIIbIIIa inhibitors etifibatide (Integrilin) or tirofiban (Aggrastat) or within 2 weeks of treatment with abciximab (Reopro). Current interpretive data was last revised on 2017. Blood 01/29/2025 2:26 PM CDT 01/29/2025 4:12 PM CDT Narrative [facility] - 01/29/2025 4:35 PM CDT CPAP ORDER Lazaro Flores MD LAB BLOOD ORDERABLES F inal Result Performing Organization Address [facility] Co de Phone Number [facility] [employer] [place] [address] * CPAP aPTT algorithm (01/29/2025 2:26 PM CDT) aPTT 30 28 - 38 sec Comment: Interpretive Data Heparin therapeutic range: 66.0 - 100.0 seconds. Range based on correlation with therapeutic heparin activity range of 0.3 - 0.7 Units/mL. Current interpretive data was last revised on 2023. Blood 01/29/2025 2:26 PM CDT 01/29/2025 3:49 PM CDT Sonya Kingsley GRANTS ADMINISTRATOR LAB BLOOD ORDERABLES Aleksandra l Result Performing Organization Address [facility] Co de Phone Number [facility] [employer] [place] [address] * (ABNORMAL) CBC with auto differential (01/29/2025 2:26 PM CDT) WBC 5.7 3.8 - 9.9 K/cumm Hgb 12.0 11.9 - 15.5 g/dL [facility] Hct 35.2(L) 35.6 - 45.5 % [facility] Plt 213 150 - 400 K/cumm [facility] MPV 10.3 9.1 - 12.3 fL [facility] RBC 4.44 3.90 - 5.20 M/cumm [facility] MCV 79.3(L) 81.3 - 96.4 fL [facility] MCH 27.0(L) 27.1 - 33.3 pg [facility] MCHC 34.1 32.3 - 35.7 g/dL [facility] RDW CV 13.9 11.1 - 14.9 % [facility] RDW SD 39.4 35.7 - 48.1 fL [facility] NRBC abs 0.00 0.00 - 0.01 K/cumm [facility] Blood 01/29/2025 2:26 PM CDT 01/29/2025 3:46 PM CDT Narrative [facility] - 01/29/2025 3:55 PM CDT CPAP ORDER Lazaro Flores MD LAB BLOOD ORDERABLES F inal Result Performing Organization Address [facility] de Phone Number [facility] Department of [employer] [place] [address] * Protime-INR (01/29/2025 2:26 PM CDT) PT 11.4 9.7 - 13.0 sec INR 1.05 0.90 - 1.20 [facility] Comment: Interpretive data Oral anticoagulant therapeutic ranges: Venous thromboembolism prophylaxis or treatment: 2.0-3.0 CARDIOLOGY Standard range: 2.0-3.0 High-intensity range: 2.5-3.5 Refer to indication-specific guidelines for appropriate target ranges for prosthetic heart valve replacement. Current interpretive data was last revised on 2019. Blood 01/29/2025 2:26 PM CDT 01/29/2025 3:49 PM CDT us Sonya Kingsley GRANTS ADMINISTRATOR LAB BLOOD ORDERABLES Aleksandra l Result Performing Organization Address [facility]/ZIP Co de Phone Number [facility] [employer] [place] [employer] [place] [address] * (ABNORMAL) Basic metabolic panel (01/29/2025 2:26 PM CDT) [facility] Sodium 141 135 - 145 mmol/L Potassium, pl 4.0 3.3 - 4.9 mmol/L [facility] Chloride 102 97 - 110 mmol/L [facility] CO2 32 22 - 32 mmol/L [facility] Anion gap 7 2 - 15 mmol/L [facility] BUN 22 6 - 25 mg/dL [facility] Creatinine 1.62(H) 0.60 - 1.10 mg/dL [facility] Glucose 166 70 - 199 mg/dL [facility] Comment: Interpretive Data Fasting glucose >/= 126 mg/dl is diagnostic for diabetes. Fasting is defined as no caloric intake for at least 8 hours. Fasting glucose between 100 mg/dl to 125 mg/dl is diagnostic of prediabetes. In a patient with classic symptoms of hyperglycemia or hyperglycemic crisis, a random glucose >/= 200 mg/dl is diagnostic for diabetes. In the absence of unequivocal hyperglycemia, results should be confirmed by repeat testing. The classification and Diagnosis of Diabetes Diabetes Care 2021; 46: S19-S40. Current interpretive data was last revised 2022. Calcium 9.5 8.5 - 10.3 mg/dL [facility] Blood 01/29/2025 2:26 PM CDT 01/29/2025 3:45 PM CDT Narrative [facility] - 01/29/2025 4:14 PM CDT CPAP ORDER Has the patient fasted?->No Lazaro Flores MD LAB BLOOD ORDERABLES F inal Result [facility] Department [place] [address] * (ABNORMAL) POCT hemoglobin A1c (01/29/2025 2:00 PM CDT) [facility] Hgb A1C, POC 6.1(H) 4.0 - 5.6 % Est Average Gluc POC 128 mg/dL [facility] Comment: The ADA recommends reporting an estimated Average Glucose (eAG) with all Hemoglobin A1c results using the equation derived from a study of 507 normal and diabetic adults. Minority populations were underrepresented and children were not included. (Diabetes Care 31:6701-5536, 2008). The eAG is not equivalent to a fasting glucose. Blood 01/29/2025 2:00 PM CDT 01/29/2025 2:00 PM CDT us Kamari Reyes MD POINT OF CARE TEST ORDER SUAD Final Result [facility] Department [place] [address] * Lipid panel (10/20/2024 11:40 PM GLOBAL SECURITY ARCHITECT) Cholesterol 129 30 - 199 mg/dL Comment: Interpretive Data Ages < or = 19 years Acceptable: <170 mg/dL Borderline high: 170-199 mg/dL High: >or= 200 mg/dL Ages > or = 20 years Desirable: <200 mg/dL Borderline high: 200-239 mg/dL High: >or= 240 mg/dL Literature References: 1. Expert Panel on Integrated Guidelines for Cardiovascular Health and Risk Reduction in Children and Adolescents. Pediatrics 2011;128:S213 2. NCEP Expert Panel. Circulation 2004;110:227 Current Interpretive Data was last revised on 2018. Triglycerides 58 <=149 mg/dL [facility] Comment: Interpretive Data Ages < or = 9 years Acceptable: <75 mg/dL Borderline high: 75-99 mg/dL High: >or= 100 mg/dL Ages 10 to 20 years Acceptable: <90 mg/dL Borderline high: 90-129 mg/dL High: >or= 130 mg/dL Ages > or = 20 years Desirable: <150 mg/dL Borderline high: 150-199 mg/dL High: 200-499 mg/dL Very high: >or= 499 mg/dL Literature References: 1. Expert Panel on Integrated Guidelines for Cardiovascular Health and Risk Reduction in Children and Adolescents. Pediatrics 2011;128:S213 2. NCEP Expert Panel. Circulation 2004;110:227 Current Interpretive Data was last revised on 2018. HDL 65 >=40 mg/dL [facility] Comment: Interpretive Data Ages < or = 19 years Acceptable: >45 mg/dL Borderline low: 40-45 mg/dL Low: <40 mg/dL Ages > or = 20 years Desirable: >or= 60 mg/dL Low: <40 mg/dL Literature References: 1. Expert Panel on Integrated Guidelines for Cardiovascular Health and Risk Reduction in Children and Adolescents. Pediatrics 2011;128:S213 2. NCEP Expert Panel. Circulation 2004;110:227 Current Interpretive Data was last revised on 2018. LDL, calculated 51 <=129 mg/dL [facility] Comment: Interpretive Data Ages < or = 19 years Acceptable: <110 mg/dL Borderline high: 110-129 mg/dL High: >or= 130 mg/dL Ages > or = 20 years Optimal: <100 mg/dL Near optimal: 100-129 mg/dL Borderline high: 130-159 mg/dL High: >160 mg/dL Calculated using the Everett LDL-C estimating equation. This equation was implemented on 2024. Prior to this date LDL-C was estimated using the Friedewald equation. Literature References: 1. Expert Panel on Integrated Guidelines for Cardiovascular Health and Risk Reduction in Children and Adolescents. Pediatrics 2011;128:S213 2. NCEP Expert Panel. Circulation 2004;110:227 3. Everett M et al. TE Cardiol. 2019March 06;5(5):540-548. doi: 10.1001/jamacardio.2020.0013 Current Interpretive Data was last revised on 2024. Non-HDL Cholesterol 64 mg/dL [facility] Comment: Interpretive Data Ages < or = 19 years Acceptable: <120 mg/dL Borderline high: 120-144 mg/dL High: >145 mg/dL Ages > or = 20 years When triglycerides are >200 mg/dL, Non-HDL cholesterol is a secondary target of therapy with treatment goals that are 30 mg/dL greater than the LDL cholesterol target. Literature References: 1. Expert Panel on Integrated Guidelines for Cardiovascular Health and Risk Reduction in Children and Adolescents. Pediatrics 2011;128:S213 2. NCEP Expert Panel. Circulation 2004;110:227 Current Interpretive Data was last revised on 2018. Chol/HDL ratio 2 [facility] Blood 10/20/2024 11:4 0 PM GLOBAL SECURITY ARCHITECT 10/21/2024 12:24 AM GLOBAL SECURITY ARCHITECT us Zen Odonnell MD LAB BLOOD ORDERABLES Final Resul t [facility] Department [place] [address] * Screening Mammogram Bilateral W Ankit (05/29/2024 1:11 PM CDT) Anatomical Region Laterality Modality Breast Bilateral Mammography Impressions 05/29/2024 1:17 PM CDT BI-RADS ATLAS category (overall): 1 - Negative There is no mammographic evidence of malignancy. A 1 year screening mammogram is recommended. The patient has been or will be contacted. We recommend annual screening mammography for women at average risk of breast cancer beginning at age 40, based on guidelines of the [employer] (ACR Practice Parameter for the Performance of Screening and Diagnostic Mammography) and [employer]. For women with and elevated risk of breast cancer, please refer to the ACR Practice Parameter for specific screening recommendations. The patient will be entered into a reminder system with a target due date of 1 year for her next screening exam. Narrative 05/29/2024 1:17 PM CDT Screening Mammogram Bilateral W Ankit: 05/29/24 The study was acquired using full field digital technology and interpreted from soft copy. 2D digital mammographic views, as well as 3D digital tomosynthesis were performed in the CC and MLO projections. CLINICAL: Screening mammogram, encounter for. No relevant medical history has been documented for this patient. No known family history of breast cancer. COMPARISONS: 03/27/2023 Screening Mammogram Bilateral W Ankit 12/22/2021 Screening Mammogram Bilateral W Ankit 10/28/2020 Screening Mammogram Bilateral W Ankit BREAST TISSUE: The breasts are heterogeneously dense, which may obscure small masses. FINDINGS: There is no new suspicious finding in either breast on mammogram. us Self Screening Mammogram IMG MAMMO PROCEDURES Fi nal Result * Dexa Axial Skeleton Bone Density 1 or 2 Site (10/19/2023 2:04 PM GLOBAL SECURITY ARCHITECT) Anatomical Region Laterality Modality Body N/A Mammography 10/19/2023 7:06 PM GLOBAL SECURITY ARCHITECT Narrative 10/19/2023 7:07 PM GLOBAL SECURITY ARCHITECT EXAM DESCRIPTION: DEXA AXIAL SKELETON BONE DENSITY 1 OR MORE SITES REASON FOR STUDY: 73 y/o year old F with given history of: asymptomatic menopausal state Intranet Support/Model: HoloZapproved A (S/N [id number]) CLINICAL INFORMATION: Current height: 66 inches Maximum height: 66 inches Weight: 180 pounds Risk factors: Postmenopausal COMPARISON: None available FINDINGS: AP LUMBAR SPINE L1-L4: Total BMD is 0.983 g/cm2 T-score is -1.5 LEFT HIP: Total BMD is 0.900 g/cm2 T-score is -0.8 Femoral neck BMD is 0.832 g/cm2 T-score is -0.8 FRAX: 10 year risk for a major osteoporotic fracture is 3.4 %, 10 year risk for a hip fracture is 0.3 % IMPRESSION: Low Bone Mass. REFERENCE: Bone mineral density: Normal (T-score above or = -1.0) Low bone mass (T-score between -1.0 and -2.5) replaces the previously used term osteopenia Osteoporosis (T-score = or below -2.5) Medical evaluation for secondary causes of low bone mineral density may be appropriate. FRAX is a World Health Organization validated fracture risk assessment tool that calculates a person's 10 year probability of a major osteoporosis related fracture and hip fracture. According to the National Osteoporosis Foundation guidelines, postmenopausal women and men age 50 or older with low bone mass and a 10 year probability of a major osteoporosis related fracture = or greater than 20% or a 10 year probability of a hip fracture = or greater than 3% should be considered for treatment. For further information, including treatment recommendations, please refer to the 2019 ISCD Official Positions (http://www.iscd.org) and the NOF's Clinician's Guide to Prevention and Treatment of Osteoporosis (http://www.nof.org/professionals/clinical-guidelines) THIS IS AN ELECTRONICALLY VERIFIED FINAL REPORT 10/19/2023 7:07 PM - Electronically signed by Vijay Wang M.D. MF: RIVER Report ID: [id number] Reading Location: [place] [address] Procedure Note Vijay Wang MD - 10/19/2023 EXAM DESCRIPTION: DEXA AXIAL SKELETON BONE DENSITY 1 OR MORE SITES REASON FOR STUDY: 73 y/o year old F with given history of:asymptomatic menopausal state Intranet Support/Model: HoloZapproved A (S/N [id number]) CLINICAL INFORMATION: Current height: 66 inches Maximum height: 66 inches Weight: 180 pounds Risk factors: Postmenopausal COMPARISON: None available FINDINGS: AP LUMBAR SPINE L1-L4: Total BMD is 0.983 g/cm2 T-score is -1.5 LEFT HIP: Total BMD is 0.900 g/cm2 T-score is -0.8 Femoral neck BMD is 0.832 g/cm2 T-score is -0.8 FRAX: 10 year risk for a major osteoporotic fracture is 3.4 %, 10 year risk fora hip fracture is 0.3 % IMPRESSION: Low Bone Mass. REFERENCE: Bone mineral density: Normal (T-score above or = -1.0) Low bone mass (T-score between -1.0 and -2.5) replaces thepreviously used term osteopenia Osteoporosis (T-score = or below -2.5) Medical evaluation for secondary causes of low bone mineral density may be appropriate. FRAX is a World Health Organization validated fracture risk assessmenttool that calculates a person's 10 year probability of a major osteoporosisrelated fracture and hip fracture. According to the National OsteoporosisFoundation guidelines, postmenopausal women and men age 50 or older with low bonemass and a 10 year probability of a major osteoporosis related fracture = or greater than 20% or a 10 year probability of a hip fracture = or greaterthan 3% should be considered for treatment. For further information, including treatment recommendations, please referto the 2019 ISCD Official Positions (http://www.iscd.org) and the NOF's Clinician's Guide to Prevention and Treatment of Osteoporosis (http://www.nof.org/professionals/clinical-guidelines) THIS IS AN ELECTRONICALLY VERIFIED FINAL REPORT 10/19/2023 7:07 PM - Electronically signed by Vijay Wang M.D. MF: RIVER Report ID: [id number] Reading Location: [id number] Radha Duff MD IMG DXA PROCEDURES Final R esult from Last 3 Months or Most Recently Relevant to Health Maintenance Insurance [facility] MEDICARE ADVANT[facility]IC[facility] Address: [address] [place] [phone] UHC MEDICARE ADVANTAGE [facility] Address: [address] [place] [phone] Advance Directives For more information, please contact: [phone] Documents on File Type Date Recorded Patient Psychologist Research Assistant Expl anation ADVANCE DIRECTIVE 01/26/2024 11:22 AM Mulu r of Photogrammetric Surveyor-Financial/Medica l ADVANCE DIRECTIVE 01/26/2024 11:21 AM POLS T - Phys Order for PT Preferences * Full Code (Latest Code Status on File) Date Activated Date Inactivated Comments 02/05/2025 10:54 AM 02/06/2025 4:21 PM * Full Code Date Activated Date Inactivated Comments 10/20/2024 8:19 PM 10/22/2024 9:54 PM * Full Code Date Activated Date Inactivated Comments 06/24/2024 2:48 PM 06/25/2024 7:52 PM * LIMITED - No CPR Date Activated Date Inactivated Comments 01/25/2024 8:04 PM 01/29/2024 9:01 PM Question Answer Comments Provide aggressive medical m anagement before a full cardiopulmonary arrest occurs. Use antibiotics, IV Fluids, and medical treatment unless specifically selected below: No intubationNo non-invasive ventilationNo cardioversionNo internal / external pacemaker Care Teams Informatica Developer Relationship Specialty Start Date End Date Radha Duff MD [address] [address] PCP - General Internal Medicine 12/22/21 Stew Garcia MD [address] [address] Consulting Physician Cardiovascular Disease 05/02/24
--- OUTSIDE RECORDS SUMMARY | 2025-02-28 11:37 | XMS_ITS | Encounter Summary ---
Author Organization [facility] Address [address] [place] [address] Phone Care Team Providers Care Inspector Outside Steam Distribution Name Role Phone Radha Duff MD Primary Care Provider [phone] Stew Garcia MD Unavailable [phone] Encounter Details Date Type Department Care Team (Late st Contact Info) Description 02/27/2025 Telephone [facility] Neurosurgery [address] [facility] [address] [place] [address] [place] [id number] Lazaro Flores MD [address] [place] [address] Social History Tobacco Use Types Packs/Day Years Used Date Smoking Tobacco: Former Cigarettes 0.2 20 2017 Smokeless Tobacco: Never [facility] Utilities Answer Date Recorded In the past 12 months has [employer], gas, oil, or water company threatened to [...] 06/25/2024 How often do you attend chur or christian services? 1 to 4 times per year 06/25/2024 Do you belong to any clubs o r organizations such as latter day groups, unions, fraternal or athletic groups, or [...] place to sleep or slept in a custodial (including now)? No 01/26/2024 Housing Stability Vital Sign Answer Chito e Recorded In the last 12 months, was t here a time when you were not able to pay the mortgage or rent on time? No 06/25/2024 In the past 12 months, how m any times have you moved where you were living? 0 06/25/2024 At any time in the past 12 m [facility], were you homeless or living in a custodial (including now)? No 06/25/2024 Personal Safety Answer Date Recorded Have you ever been in or are you currently in a harmful physical or emotional relationship or is someone making you feel afraid or unsafe? Denies 02/05/2025 Comments No Sex and Gender Information Value Date Recorded Sex Assigned at Not on file Legal Sex Female 8:50 PM CAN FEEDER Gender Identity Not on file Sexual Orientation Not on file documented as of this encounter Miscellaneous Notes * Telephone Encounter - Jennifer Thomas RMA - 02/27/2025 4:13 PM CDT Patient has an upcoming appointment with AV on 03/20 - appointment was already made * Telephone Encounter - Jennifer Thomas RMA - 02/27/2025 4:13 PM CDT ----- Message from Nurse Barbara Galaviz sent at 02/06/2025 3:27 PM CDT ----- Regarding: FW: follow up Please schedule I dont see return appointments ----- Message ----- From: Rita Rojo NP Sent: 02/06/2025 12:42 PM CDT To: Tyrese Quinones Adult Follow-Up Appointment Pool; # Subject: follow up Please schedule follow up with pyle in 4-6 weeks. 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 documented in this encounter Plan of Treatment Not on file documented as of this encounter Visit Diagnoses Not on filedocumented in this encounter Care Teams Inspector Outside Steam Distribution Relationship Specialty Start Date End Date Radha Duff MD [address] [facility] [address] [place] [address] PCP - General Internal Medicine 12/22/21 Stwe Garcia MD [address] [place] [address] [address] Consulting Physician Cardiovascular Disease 05/02/24 documented as of this encounter
--- OUTSIDE RECORDS SUMMARY | 2025-02-28 11:37 | XMS_ITS | Data Portability ---
Author Organization [facility], Main Office Address [address] [place] [address] Assessment No assessment recorded. Plan of Treatment Reminders Order Date Submit Date Provider Last Modified By Organization Details Last Modified Time Details Appointments None recorded . Lab CMP, serum or plasma 023 03/10/20 23 [email or web address] Not available 3 12:27:45 HbA1c (hemoglo bin A1c), blood 023 03/10/20 23 [email or web address] Not available 3 12:27:46 microalb umin/cre atinine, mass ratio, urine 023 03/10/20 23 [email or web address] Not available 3 12:27:46 lipid panel, serum 023 03/10/20 23 [email or web address] Not available 3 12:27:46 TSH + free T4, serum 023 03/10/20 23 [email or web address] Not available 3 12:27:46 Referral None recorded . Procedures None recorded . Surgeries None recorded . Imaging None recorded . Medication Orders None recorded . Patient TargetsNo targets recorded. Patient InstructionsNo instructions recorded. Reason for Referral None Reported. Results Created Date Observation Date Name Description Value Unit Range Abnormal Flag Note LastModifiedBy Organization Detail LastModifiedTime Result Notes None recorded. Problems Name Problem SNOMED Code Status Onset Date Resolution Date Notes Provider Name and Address Organization Details Recorded Time Well controlled type 2 diabetes mellitus 454732328 Active 2022 Yanique Hollingsworth MD [address] [facility], [facility] [address], [place], [address] , [facility] 3 12:26:44 Dyslipidemia 571565491 Active 2021 Not Available [facility] 3 04:50:23 Latent autoimmune diabetes mellitus in adult 244277916 Active 2021 Not Available [facility] 3 04:50:23 Long-term current use of insulin 138853369 Active 2020 Not Available [facility] 3 04:50:23 Notes:Some problems listed i n Document: #[id number] could not be added to this patient's chart. Please review this document and add these problems to the patient's chart manually as needed. Problem Notes None recorded. Procedures Surgical History Date Name Laterality Status Provider Name and Address Organization Details Recorded Time Hysterectomy completed Not Available [facility] 01/04/2023 04:42:35 Appendectomy completed Not Available [facility] 01/04/2023 04:42:35 Imaging Results None recorded. Procedure Notes None recorded. Medical Equipment None Reported. Allergies No known drug allergies Medications Name Sig Start Date Stop Date Status Note LastModified by Organization Details LastModified Time celecoxib 200 mg capsule TAKE 1 CAPSULE BY MOUTH ONCE DAILY active Not Available Not Available No t Available amoxicillin 500 mg capsule TAKE 2 CAPSULES BY MOUTH NOW AND 1 EVERY 6 HOURS UNTIL GONE 03/10 completed Not Available Not Available Not Available metformin 500 mg tablet TAKE 1 TABLET BY MOUTH TWICE DAILY 06/07 completed Not Available Not Available Not Available atorvastati n 80 mg tablet Take 1 tablet every day by oral route. active Not Available Not Available No t Available atenolol 100 mg-chlortha lidone 25 mg tablet TAKE 1 2 (ONE HALF) TABLET BY MOUTH ONCE DAILY IN THE MORNING active Not Available Not Available No t Available carvedilol 12.5 mg tablet TAKE 1 TABLET BY MOUTH TWICE DAILY active Not Available Not Available No t Available trazodone 50 mg tablet TAKE 2 TABLETS BY MOUTH NIGHTLY AT BEDTIME active Not Available Not Available No t Available fluconazole 150 mg tablet TAKE 1 TABLET BY MOUTH ONCE DAILY active Not Available Not Available No t Available meloxicam 15 mg tablet TAKE 1 TABLET BY MOUTH ONCE DAILY active Not Available Not Available No t Available amlodipine 2.5 mg tablet active Not Available Not Available Not Available glimepiride 2 mg tablet 02/22 completed Not Available Not Available Not Available trazodone 100 mg tablet TAKE 1 TABLET BY MOUTH NIGHTLY active Not Available Not Available No t Available baclofen 10 mg tablet TAKE 1 TABLET BY MOUTH TWICE DAILY active Not Available Not Available No t Available Guido 128 5 % eye drops INSTILL 1 DROP INTO EACH EYE THREE TIMES DAILY active Not Available Not Available No t Available candesartan 16 mg tablet Take 1 tablet every day by oral route. active Not Available Not Available No t Available candesartan 32 mg tablet active Not Available Not Available Not Available gabapentin 300 mg capsule active Not Available Not Available Not Available aspirin 81 mg tablet Take by oral route. 2019 active Not Available Not Available Not Avai lable gabapentin 100 mg capsule TAKE 2 CAPSULES BY MOUTH THREE TIMES DAILY 09/13 completed Not Available Not Available Not Available metformin ER 500 mg tablet,exte nded release 24 hr TAKE 2 TABLETS BY MOUTH TWICE DAILY WITH MEALS active Not Available Not Available No t Available naproxen 500 mg tablet TAKE 1 TABLET BY MOUTH TWICE DAILY WITH MEALS active Not Available Not Available No t Available amoxicillin 875 mg-potassiu m clavulanate 125 mg tablet 02/22 completed Not Available Not Available Not Available Pneumovax-2 3 25 mcg/0.5 mL injection syringe PHARMACIS T ADMINISTE RED IMMUNIZAT ION ADMINISTE RED AT TIME OF DISPENSIN G active Not Available Not Available No t Available escitalopra m 10 mg tablet Take 1 tablet every day by oral route. active Not Available Not Available No t Available escitalopra m 20 mg tablet TAKE 1 TABLET BY MOUTH NIGHTLY active Not Available Not Available No t Available ezetimibe 10 mg tablet active Not Available Not Available Not Available rosuvastati n 40 mg tablet active Not Available Not Available Not Available Januvia 50 mg tablet Take 1 tablet every day by oral route in the morning for 90 days. 05/23 completed Not Available Not Available Not Available Humalog KwikPen (U-100) Insulin 100 unit/mL subcutaneou s INJECT SUBCUTANE OUSLY 15 UNITS 3 TIMES DAILY WITH MEALS active Not Available Not Available No t Available Farxiga 10 mg tablet TAKE 1 TABLET BY MOUTH ONCE DAILY IN THE MORNING active Not Available Not Available No t Available Levemir FlexTouch U-100 Insulin 100 unit/mL (3 mL) subcutaneou s pen INJECT 10 UNITS SUBCUTANE OUSLY ONCE DAILY AT BEDTIME active Not Available Not Available No t Available Tresiba FlexTouch U-100 insulin 100 unit/mL (3 mL) subcutaneou s pen INJECT SUBCUTANE OUSLY 30 UNITS ONCE DAILY AT BEDTIME 2022 active Not Available Not Available Not Avai lable Bydureon BCise 2 mg/0.85 mL subcutaneou s auto-inject or inject 2 mg SQ once weekly with largest meal 03/07 completed Not Available Not Available Not Available Nexletol 180 mg tablet active Not Available Not Available Not Available Fluzone High-Dose Quad (PF) 240 mcg/0.7 mL IM syringe PHARMACIS T ADMINISTE RED IMMUNIZAT ION ADMINISTE RED AT TIME OF DISPENSIN G active Not Available Not Available No t Available Vitals Date Recorded Oxygen saturation Oxygen saturation in Arterial blood by Pulse oximetry Heart rate Body temperature Body weight Systolic blood pressure Diastolic blood pressure Provider Name and Address Organization Details Last Updated DateTime 2 91 % 91 % 68 /min 98 [degF] 49129.0 3 g 120 mm[Hg] 80 mm[Hg] Not Available [facility] 3 04:47:05 Date Recorded Oxygen saturation Oxygen saturation in Arterial blood by Pulse oximetry Heart rate Body temperature Body weight Systolic blood pressure Diastolic blood pressure Provider Name and Address Organization Details Last Updated DateTime 2 99 % 99 % 79 /min 97.7 [degF] 02865.2 4 g 150 mm[Hg] 80 mm[Hg] Not Available [facility] 3 04:47:05 Date Recorded Body weight Body temperature Heart rate Systolic blood pressure Diastolic blood pressure Provider Name and Address Organization Details Last Updated DateTime 03/10/2023 12554.6 2 g 97.6 [degF] 91 /min 223 mm[Hg] 94 mm[Hg] JERMAN Deleon [place] [facility] [employer] [facility] 3 12:06:33 Social History Question Answer Notes LastModified by Organizat ion Details LastModified Time Tobacco Smoking Status Former Smoker quit 2017 Not Available [facility] 01/04/2023 04:21:13 What Is Your Level Of Alcohol Consumption? Occasional [id number] Information not available 01/04/2023 Are You Blind Or Do You Have Difficulty Seeing? No [id number] Information not available 01/04/2023 What Is Your Level Of Caffeine Consumption? Moderate [id number].[id number] Information not available 01/04/2023 How Much Tobacco Do You Chew? None [id number] Information not available 01/04/2023 In The 14 Days Before Symptom Onset, Have You Had Close Contact With A Laboratory-confir med COVID-19 While That Case Was Ill? No [id number].[id number] Information not available 01/04/2023 In The 14 Days Before Symptom Onset, Have You Had Close Contact With A Person Who Is Under Investigation For COVID-19 While That Person Was Ill? No [id number] Information not available 01/04/2023 Are You Deaf Or Do You Have Serious Difficulty Hearing? No MIGRATION.[id number] [id number] Information not available 01/04/2023 Which Illicit Or Recreational Drugs Have You Used? None [id number] Information not available 01/04/2023 Do You Or Have You Ever Used E-cigarettes Or Vape? Never Used Electronic Cigarettes MIGRATION.[id number] Information not available 01/04/2023 What Is Your Relationship Status? MIGRATION.[id number] Information not available 01/04/2023 Have You Recently Traveled Abroad? No MIGRATION.86404 [id number] Information not available 01/04/2023 Sex: Female Functional Status Question Answer Note LastModified by Organizat ion Details LastModified Time Do you have difficulty walking or climbing stairs? No [id number] Information not available 01/04/2023 Do you have transportation difficulties? No [id number] Information not available 01/04/2023 Are you able to walk? YESWOREST MIGRATION.[id number] 026 Information not available 01/04/2023 Do you have difficulty doing errands alone? No MIGRATION.[id number] [id number] Information not available 01/04/2023 Are you able to care for yourself? Yes [id number] Information not available 01/04/2023 Do you have difficulty dressing or bathing? No MIGRATION.[id number] 026 Information not available 01/04/2023 Mental Status Question Answer Note LastModified by Organizat ion Details LastModified Time Do you have difficulty concentrating, remembering or making decisions? No [id number] Information not available 01/04/2023 Family History Relationship Description Onset Age of this Age Resolved Age Notes LastModified by Organization Details LastModified Time Mother Heart disease [id number] Not available 01/04/2023 04:42:41 Father Malignant tumor of lung [id number] Not available 01/04/2023 04:42:41 Medical History Condition Response DIABETES, TYPE Y HYPERTENSION Y HIGH CHOLESTEROL / HYPERLIPIDEMIA Y Gynecological HistoryNo gynecological history recorded. Obstetrics History GPAL:G 0 P 0 0 0 0 Past Encounters Encounter ID Performer Location Encounter Start Date Encounter Closed Date Diagnosis/Indication Diagnosis SNOMED-CT Code Diagnosis ICD10 Code Diagnosis Note [id number] [facility] [address] [place] [address] 01/22/2021 00:00:00 01/22/2021 19:07:36 [id number] [facility] [address] [place] [address] 02/22/2021 00:00:00 02/22/2021 16:12:52 [id number] [facility] [address] [place] [address] 05/24/2021 00:00:00 05/24/2021 16:32:03 [id number] [facility] [address] [place] [address] 09/13/2021 00:00:00 09/13/2021 18:37:15 [id number] [facility] [address] [place] [address] 06/07/2022 00:00:00 06/07/2022 13:38:50 [id number] [facility] [address] [place] [address] 09/19/2022 00:00:00 09/19/2022 19:47:33 [id number] Yanique Hollingsworth MD [facility] [address] [place] [address] 03/10/2023 11:41:12 03/10/2023 12:47:47 Well controlled type 2 diabetes mellitus 522342863 E11.9 a1c of 6.5%- recommende d patient drop her tresiba down to 24-26 units at bedtime and increase or decrease by 2 units every 3 days to maintain fasting glucose 90-130 mg/dL. Continue rapid insulin at correction of 1U:50>150 mg/dL on premeal sugars as 3-4 units is leading to postmeal lows- recommende d a 1:20 carb ratio at most so should not take more than 3 units for large meals and 2 units for smaller meals and do not take if high protein based meals. 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 Dyslipidemia 697812513 E 78.5 Continue statin therapy as LDL in range. Spent up to 28 minutes preparing to see the patient (eg, review of tests), obtaining and/or reviewing separately obtained history, performing a medically appropriat e examinatio n and evaluation , counseling and educating the patient, ordering medication s, tests, along with documentin g clinical informatio n in the electronic health record, independen tly interpreti ng results and communicat ing results to the patient. RTC in 6 months. Patient was provided a handwritte n lab order which contains our fax number. If she chooses to go outside of the [facility] system to obtain labwork she was advised to provide our fax number and my informatio n to the lab she will be obtaining labwork from in order to have her labs properly forwarded over for me to review so there is no loss of follow up due to use of outside network. She was also advised to contact our clinic informing us that she has completed her labwork so we are aware we will need to reach out to the appropriat e laboratory to request her results be forwarded to us so I might have the ability to review and make further medical decision making in her case. She voiced understand ing. Health Concerns Section Related Observation LastModified by Organization Detai ls LastModified Time None Recorded Concern Status LastModified by Organization Details LastModified Time None Recorded Advance Directives Directive None Recorded Payers Encounter Date Sequence Insurance Name Policy Number Policy Luo Covered Member ID Luo Member ID Guarantor Name 03/10/2023 1 [facility] (MEDICARE REPLACEMENT/A DVANTAGE - PPO) [id number] [id number] Susanadory Donnie Notes Date Note Type Note Provider Name and Address Organization Details Recorded Time 03/10/2023 text/html 72 yo female com es in for follow up in management of well controlled type 2 DM (A1C of 6.5%), dyslipidemia. last seen in Sep 2022 at that time we had patient continue on tresiba 22 units at bedtime and increase or decrease by 2 units every 3-4 days for goal fasting BG of 100.Recommended patient only use correction for now at 1U:50>150 mg/dL on premeal sugars as 3-4 units is leading to postmeal lows- recommended a 1:20 carb ratio at most so should not take more than 3 units for large meals and 2 units for smaller meals and do not take if high protein based meals. She has a glucose sensor /dexcom. sugars running 90-130 mg/dL consistently. She has no lows. we continued rosuvastatin. labs from 02/23/23:a1c 6.5%glucose 99 mg/dLCr 1.3 mg/dL with GFR 56 ml/minlft normalh/h normal Yanique Hollingsworth MD [address], [facility] [address], [place], [address], [place] [facility] [employer] [facility] 03/10/2023 14:13:50 OBGyn Episode No OBEpisode recorded.
--- OUTSIDE RECORDS SUMMARY | 2025-02-28 11:37 | XMS_ITS | Referral Summary ---
Author Organization [facility] [address] [place] [id number] Care Team Providers Care Debt Counselor Name Role Phone Radha Duff MD Primary Care Provider [phone] Stew Garcia MD Unavailable [phone] Encounters Date Type Department Care Team Description 02/27/2025 Telephone [facility] Neurosurgery [address] [facility] 6th [place] [address] [place] [phone] Lazaro Flores MD 02/17/2025 12:00 PM CDT Telemedicine B Neurosurgery Clinic [facility] [address], [address] [place] [address] Kamari Reyes MD Neck pain (Primary Dx) 02/05/2025 3:45 PM CDT - 02/06/2025 12:20 PM CDT Hospital Encounter [address] [phone] Lazaro Flores MD Roller, Evan Ward, MD Reynolds, Troy Wayne, CRNA Cerebral aneurysm, nonruptured Discharge Disposition: Discharge to home or self care 02/05/2025 11:38 AM CDT Anesthesia Event [facility] Neuro Interventional Radiology 1 [facility] [place] [address] Angelic Hodgson MD Reynolds, Troy Wayne, CRNA 01/30/2025 Orders Only Radiology 1 [place] [address] Janice Story PA 01/30/2025 Orders Only [facility] Neurosurgery [address] [facility] 6th [place] [address] [place] [address] Lazaro Flores MD 01/29/2025 1:00 PM CDT Pre-Admission Testing [facility] for Preoperative Assessment and Planning [facility] Advanced Medicine ([facility]) [address] [place] [address] Preoperative testing (Primary Dx); Bruising; Cerebral aneurysm, nonruptured 12/03/2024 12:00 PM FAMILY ASSISTANT Office Visit [facility] Stroke [address] [facility] [address] [place] [address] Ty Mckee NP Cerebrovascular accident (CVA) due to other mechanism (HCC) (Primary Dx); Essential hypertension; Hyperlipidemia LDL goal <70; Hospital discharge follow-up 12/02/2024 1:30 PM FAMILY ASSISTANT Office Visit [facility] Ophthalmology [address] [place] [address] 1st [place] [phone] Alana Pathak MD Blurred vision, bilateral (Primary Dx) from Last 3 Months Allergies No known active allergies Medications candesartan (ATACAND) 32 mg tabletIndicatio ns:hypertension Take 1 tablet (32 mg total) by mouth every morning 3 Active Voltaren 1 % gelIndications: Osteoarthritis, Pain Apply 2 g topically 4 (four) times a day as needed (pain) 3 Active allopurinoL (ZYLOPRIM) 100 mg tabletIndicatio ns:Recurrent Calcium Renal Calculi Take 1 tablet (100 mg total) by mouth top waddy before breakfast Active baclofen (LIORESAL) 10 mg tabletIndicatio ns:Muscle Spasticity of Spinal Origin Take 1 tablet (10 mg total) by mouth 2 (two) times a day as needed for muscle spasms Active ezetimibe (ZETIA) 10 mg tabletIndicatio ns:hyperlipidem ia Take 1 tablet (10 mg total) by mouth top waddy before breakfast Active rosuvastatin (CRESTOR) 40 mg [...] 1 tablet (40 mg total) by mouth top waddy before breakfast 4 Active biotin 1 mg capsuleIndicati ons:supplement Take 1 tablet by mouth top waddy before breakfast Active escitalopram (LEXAPRO) 10 mg [...] times a day with meals 60 tablet 10/22/20 Active Additional Information Patient taking differently:25 mg oral 2 times daily with meals (bkfst, dinner),Indications: hypertension, Informant: Self, Reported on 02/05/2025 amLODIPine (NORVASC) 10 mg tablet Take 1 tablet (10 mg total) by mouth daily 30 tablet 4 10/23/20 Active Additional Information Patient taking differently:10 mg oralDaily (early AM), Indications: hypertension, Informant: Self, Reported on 02/05/2025 aspirin 81 mg enteric coated tabletIndicatio ns:Deep Vein Thrombosis Prevention Take 1 tablet (81 mg total) by mouth daily 30 tablet 10/23/20 Active Additional Information Patient taking differently:81 mg [...] exam. Assessment & Plan (12/05/2024 7:50 PM FAMILY ASSISTANT): - AT's & warm compress for diffuse [...] use disorder, continuous 05/12/2016 Overview (01/31/2024): told case manager he quit smoking on 05/23/18 told case manager he quit smoking on 05/23/18 Vitamin D deficiency 05/12/2016 Resolved Problems Problem Noted Date Diagnosed Date Resolved Date Accidental fall from bed 01/26/202411/2023 Gait instability 01/25/2024 02/05/2024 Assessment & Plan (02/02/2024 4:14 PM CDT): I endorse admission to half-way care. The patient is at risk of [...] Dyslipidemia 04/04/2022 02/02/2024 Chronic renal failure 11/11/20162023 Immunizations Immunization Administration Dates Next Due Influenza, Quadrivalent, Hig h Dose, Preservative Free, Intrr 09/01/2021,08/21/2020 Influenza, Quadrivalent, Spl it, Intramuscular 08/21/2020,08/15/2018,07/22/2016 Influenza, Trivalent, Adjuva nted, Intramuscular 08/07/2018 Influenza, Trivalent, High D ose, Split, Preservative Free, Intramuscular 07/27/2022,08/26/2019,08/14/2017,08/13 Moderna SARS-CoV-2 Monovalen t Vaccination (12+ YRS) 08/06/2021 Pneumococcal Conjugate PCV 13 08/21/2018, 016 Pneumococcal Polysaccharide PPV23 08/21/2020,07/2017,08/13/2017 Tdap 08/06/2018 ZOSTER LIVE 03/05/2019 ZOSTER Recombinant 03/05/2019,12/03/2018 Social History Tobacco Use Types Packs/Day Years Used Date Smoking Tobacco: Former Cigarettes 0.2 20 1 8 - 2017 Smokeless Tobacco: Never Tobacco Cessation:Counseling Given: Not Answered [facility] Altarities Answer Date Recorded In the past 12 months has [employer], [employer], or water [email or web address] threatened to shut off services in your [...] How often do you attend chur or muslim services? 1 to 4 times per year 06/25/2024 Do you belong to any clubs o r organizations such as jewish groups, unions, fraternal or athletic groups, or [...] place to sleep or slept in a fpc (including now)? No 01/26/2024 Housing Stability Vital Sign Answer Chito e Recorded In the last 12 months, was t here a time when you were not able to pay the mortgage or rent on time? No 06/25/2024 In the past 12 months, how m any times have you moved where you were living? 0 06/25/2024 At any time in the past 12 m [facility], were you homeless or living in a fpc (including now)? No 06/25/2024 Personal Safety Answer Date Recorded Have you ever been in or are you currently in a harmful physical or emotional relationship or is someone making you feel afraid or unsafe? Denies 02/05/2025 Comments No Sex and Gender Information Value Date Recorded Sex Assigned at Not on file Legal Sex Female 8:50 PM FAMILY ASSISTANT Gender Identity Not on file Sexual Orientation Not on file Last Filed Vital Signs Vital Sign Reading [...] 01/29/2025 1:15 PM CDT Plan of Treatment Not on file Medical Devices Implanted Type Area Soldering Machine Operator Device Identifier Shelf Expiration Date Model / Serial / Lot [employer] Trilogy 6.5mm 35mm Self Tap Screw Bone [id number] - [id number] Implanted:Qty: 1 on 06/24/2024 by Marc Matthews MD at [facility] Right: Hip [employer] [id number] 10/19/2033 [id number] / / [id number] [employer] G7 54mm Limit Hole Color Coded Hip F Offset Hemisphere Shell [id number] - [id number] Implanted:Qty: 1 on 06/24/2024 by Marc Matthews MD at [facility] Right: Hip [employer] [id number] 04/02/2034 [id number] / / [id number] [employer] G7 44mm 2 Mobility Hip F Liner Acetabular [id number] - [id number] Implanted:Qty: 1 on 06/24/2024 by Marc Matthews MD at [facility] Right: Hip [employer] [id number] 01/12/2034 [id number] / / [id number] [employer] Trilogy 6.5mm 30mm Self Tap Acetabular Cortical Screw Bone [id number] - [id number] Implanted:Qty: 1 on 06/24/2024 by Marc Matthews MD at [facility] Right: Hip [employer] [id number] 12/02/2033 [id number] / / [id number] [employer] Echo Bi-Metric Microplasty 10mm 101.5mm Full Proximal Profile Hip 100714 - [id number] Implanted:Qty: 1 on 06/24/2024 by Marc Matthews MD at [facility] Right: Hip [employer] [id number] 09/03/2030 [id number] / / [id number] [employer] Liner Acetabular Hip Longevity 92m99ti Polyethylene [id number] - [id number] Implanted:Qty: 1 on 06/24/2024 by Marc Matthews MD at [facility] Right: Hip [employer] [id number] 04/08/2029 [id number] / / [id number] [employer] G7 28mm Type 1 Modular Hip Acetabular 0mm Offset Head Femoral 650-1158 - [id number] Implanted:Qty: 1 on 06/24/2024 by Marc Matthews MD at [facility] Right: Hip [employer] [id number] 05/15/2033 650-1158 / / [id number] [employer] Stent Coil Embo With Shield Technology Pipeline 4.5x14mm Ped2-450-14 - [id number] Implanted:Qty: 1 on 02/05/2025 at [facility] [employer] 07/25/2025 PED2-4 50-14 / / [id number] Procedures Procedure Name Priority Date/Time Associated Diagnosis Comments POCT GLUCOSE DEVICE Routine 02/06/2025 8 :13 AM CDT POCT GLUCOSE DEVICE Routine 02/05/2025 8 :23 PM CDT POCT GLUCOSE DEVICE Routine 02/05/2025 5 :17 PM CDT POCT GLUCOSE DEVICE Routine 02/05/2025 2:31 PM CDT IR PERMANENT OCCLUSION OR EMBOLIZATION PERCUTANEOUS RUG CUTTER Schedule Routine, Read Routine (OP Routine) 02/05/2025 2:03 PM CDT Cerebral aneurysm, nonruptured NE AN PROCEDURE PLACEHOLDER Routine 02/05/2025 12:33 PM CDT NE AN ELECTIVE ENDOTRACHEAL AIRWAY Routine 02/05/2025 12:33 PM CDT POCT ACTIVATED CLOTTING TIME, LOW RANGE Routine 02/05/2025 12:32 PM CDT NE AN PROCEDURE PLACEHOLDER Routine 02/05/2025 12:26 PM CDT NE AN PROCEDURE PLACEHOLDER Routine 02/05/2025 12:25 PM [...] CDT LIPID PANEL Routine 10/20/2024 11:40 PM FAMILY ASSISTANT SCREENING MAMMOGRAM BILATERAL W ANKIT Schedule Routine, Read Routine (OP Routine) 05/29/2024 1:11 PM CDT Screening mammogram, encounter for DEXA AXIAL SKELETON BONE DENSITY 1 OR MORE SITES Schedule Routine, Read Routine (OP Routine) 10/19/2023 2:04 PM FAMILY ASSISTANT Asymptomatic menopausal state from Last 3 Months or Most Recently Relevant to Health Maintenance Results * (ABNORMAL) POCT glucose (02/06/2025 8:13 AM CDT) Glucose, POC 218(H) 70 - 199 mg/dL Blood 02/06/2025 8:13 AM CDT 02/06/2025 8:13 AM CDT us Lazaro Flores MD LAB POCT ORDERABLES - DEVICE Final Result [facility] Department [place] [address] * (ABNORMAL) POCT glucose (02/05/2025 8:23 PM CDT) Glucose, POC 210(H) 70 - 199 mg/dL Blood 02/05/2025 8:23 PM CDT 02/05/2025 8:23 PM CDT Lazaro Flores MD LAB POCT ORDERABLES - DEVICE Final Result Performing Organization Address [facility] Co de Phone Number [facility] [place] [address] * POCT glucose (02/05/2025 5:17 PM CDT) Glucose, POC 99 70 - 199 mg/dL Blood 02/05/2025 5:17 PM CDT 02/05/2025 5:17 PM CDT Lazaro Flores MD LAB POCT ORDERABLES - DEVICE Final Result Performing Organization Address [facility] Co de Phone Number [facility] [place] [address] * POCT glucose (02/05/2025 2:31 PM CDT) Glucose, POC 106 70 - 199 mg/dL Blood 02/05/2025 2:31 PM CDT 02/05/2025 2:31 PM CDT Lazaro Flores MD LAB POCT ORDERABLES - DEVICE Final Result Performing Organization Address City/[facility] Co de Phone Number [facility] [place] [place] [address] * IR Permanent Occlusion or Embolization RUG CUTTER (02/05/2025 2:03 PM CDT) Anatomical Region Laterality [...] dome. There is a origin of left SECURITY SERGEANT with an associated 2.5 x 1.5 mm [...] ANESTHESIA: General anesthesia DEVICES: 21-gauge needle 7 British Merit Prelude IDeal sheath 23cm Terumo Glidewire [...] snuff box utilizing ultrasound guidance. The 7 British sheath was then introduced into the right [...] with Rist Cristina 2 catheter over a NDI Medical Glidewire was advanced into the long sheath [...] in working projection. A coaxial assembly of Vendobots Apro 55 intermediate catheter with Phenom 27 [...] dome. There is a origin of left SECURITY SERGEANT with an associated 2.5 x 1.5 mm [...] ANESTHESIA: General anesthesia DEVICES: 21-gauge needle 7 British Merit Prelude IDeal sheath 23cm Terumo Glidewire [...] snuff box utilizing ultrasound guidance. The 7 British sheath was then introduced into the right [...] in working projection. A coaxial assembly of Vendobots Apro 55 intermediate catheter with Phenom 27 [...] dome. There is a origin of left SECURITY SERGEANT with an associated 2.5 x 1.5 mm [...] dome. There is a origin of left SECURITY SERGEANT with an associated 2.5 x 1.5 mm [...] it. Electronically signed by: Lazaro Flores M.D. us Lazaro Flores MD IMG IR PROCEDURES Aleksandra l Result * NE AN ELECTIVE ENDOTRACHEAL AIRWAY, NE AN PROCEDURE PLACEHOLDER (02/05/2025 12:33 PM CDT) Narrative Hernando Lester CRNA - 02/05/2025 12:33 PM CDT Hernando Lester CRNA 02/05/2025 12:34 PM Airway Urgency: elective Date/time: 02/05/2025 11:55 AM Indications for airway management: anesthesia Difficult airway: no Staff: Supervising provider: Tal Torres MD Placed by: LOFTSMAN: Hernando Lester CRNA Emergent airway documentation: Risks [...] with: silk tape Number of attempts: 1 us Tal Torres MD ANESTHESIA ORDERABLES Final Result * (ABNORMAL) POCT Activated clotting time, low range (02/05/2025 12:32 PM CDT) ACT 292(H) 123 - 168 sec POC Performer [id number] [facility] POC Device Number [id number] [facility] Blood 02/05/2025 12:3 2 PM CDT 02/05/2025 12:32 PM CDT Hernando Lester CRNA LAB POCT ORDERABLES - D EVICE Final Result [facility] Department [place] [address] * NE AN PROCEDURE PLACEHOLDER (02/05/2025 12:26 PM CDT) Narrative Hernando Lester CRNA - 02/05/2025 12:26 PM CDT Hernando Lester CRNA 02/05/2025 12:27 PM Peripheral IV Catheter End time: 02/05/2025 12:01 PM Staff: Supervising provider: Tal Torres MD Placed by: LOFTSMAN: Hernando Lester CRNA Preprocedure prep: Prep solution: chlorhexadine PPE: gloves and provider hat/mask PIV line: Laterality: left Site: wrist Catheter size: 20 g Technique: direct visualization Procedure details: good blood return and occlusive dressing applied Number of attempts: 1 Assessment: Events: patient tolerated procedure well with no complications aTl Torres MD ANESTHESIA ORDERABLES Final Result * NE AN PROCEDURE PLACEHOLDER (02/05/2025 12:25 PM CDT) Narrative Hernando Lester CRNA - 02/05/2025 12:25 PM CDT Hernando Lester CRNA 02/05/2025 12:26 PM Peripheral IV Catheter Patient location: pre-op holding End time: 02/05/2025 11:35 AM Staff: Supervising provider: Tal Torres MD Placed by: LOFTSMAN: Hernando Lester CRNA Preprocedure prep: Prep solution: [...] time, low range (02/05/2025 12:13 PM CDT) ACT 137 123 - 168 sec POC Performer [id number] [facility] POC Device Number [id number] [facility] Blood 02/05/2025 12:1 3 PM CDT 02/05/2025 12:13 PM CDT Hernando Vivas Lester LOFTSMAN LAB POCT ORDERABLES - D EVICE Final Result Performing Organization Address [facility] Co de Phone Number [facility] Department [place] [address] * POCT glucose (02/05/2025 11:05 AM CDT) [facility] Glucose, POC 126 70 - 199 mg/dL Blood 02/05/2025 11:0 5 AM CDT 02/05/2025 11:05 AM CDT [facility] LAB POCT ORDERABLES - D EVICE Final Result Performing Organization Address [facility] Co de Phone Number [facility] Department [place] [address] * VerifyNow clopidogrel (02/05/2025 10:56 AM CDT) Pathologist [facility] VerifyNow clopidogrel 68 PRU Comment: Interpretive Data [...] AM CDT 02/05/2025 11:36 AM CDT Narrative VLADIMIRSANDRA CANDIDA - 02/05/2025 12:06 PM CDT DRAW IN POD E Lazaro Flores MD LAB BLOOD ORDERABLES F inal Result [facility] Department [place] [address] * (ABNORMAL) eGFR (01/29/2025 2:26 PM CDT) [...] MD LAB BLOOD ORDERABLES F inal Result [facility] [address] [facility] Department [place] [address] * Differential, auto (01/29/2025 2:26 PM CDT) Pathologist [facility] Neutrophil abs 3.4 1.5 - 6.5 K/cumm Imm gran abs 0.0 0.0 - 0.1 K/cumm [facility] Lymphocyte abs 1.5 0.8 - 3.3 K/cumm [facility] Monocyte abs 0.6 0.2 - 0.8 K/cumm [facility] Eosinophil abs 0.2 0.0 - 0.5 K/cumm [facility] Basophil abs 0.0 0.0 - 0.1 K/cumm [facility] Neutrophil pct 60.0 % [facility] Comment: Interpretive Data Percent cell count reference ranges are not reported, since discordance with absolute values may lead to misinterpretation of CBC data. Current Interpretive Data was last revised on 2018. Imm gran pct 0.2 % [facility] Comment: Interpretive Data Percent cell count reference ranges are not reported, since discordance with absolute values may lead to misinterpretation of CBC data. Current Interpretive Data was last revised on 2018. Lymphocyte pct 25.7 % [facility] Comment: Interpretive Data Percent cell count reference ranges are not reported, since discordance with absolute values may lead to misinterpretation of CBC data. Current Interpretive Data was last revised on 2018. Monocyte pct 9.6 % [facility] Comment: Interpretive Data Percent cell count reference ranges are not reported, since discordance with absolute values may lead to misinterpretation of CBC data. Current Interpretive Data was last revised on 2018. Eosinophil pct 4.0 % [facility] Comment: Interpretive Data Percent cell count reference ranges are not reported, since discordance with absolute values may lead to misinterpretation of CBC data. Current Interpretive Data was last revised on 2018. Basophil pct 0.5 % [facility] Comment: Interpretive Data Percent cell count reference ranges are not reported, since discordance with absolute values may lead to misinterpretation of CBC data. Current Interpretive Data was last revised on 2018. Blood 01/29/2025 2:26 PM CDT 01/29/2025 3:46 PM CDT Lazaro Flores MD LAB BLOOD ORDERABLES F inal Result Performing Organization Address City/[facility]/ZIP Co de Phone Number [facility] Department [place] [address] * VerifyNow clopidogrel (01/29/2025 2:26 PM CDT) [...] PM CDT 01/29/2025 4:12 PM CDT Narrative [facility] - 01/29/2025 4:35 PM CDT CPAP ORDER Lazaro Flores MD LAB BLOOD ORDERABLES F inal Result [facility] [place] [address] * CPAP aPTT algorithm (01/29/2025 2:26 PM CDT) [facility] aPTT 30 28 - 38 sec Comment: Interpretive Data Heparin therapeutic range: 66.0 - 100.0 seconds. Range based on correlation with therapeutic heparin activity range of 0.3 - 0.7 Units/mL. Current interpretive data was last revised on 2023. Blood 01/29/2025 2:26 PM CDT 01/29/2025 3:49 PM CDT us Sonya Kingsley DICTATING MACHINE MECHANIC LAB BLOOD ORDERABLES Aleksandra l Result Performing Organization Address [facility] de Phone Number [facility] [place] [address] * (ABNORMAL) CBC with auto differential (01/29/2025 2:26 PM CDT) [facility] WBC 5.7 3.8 - 9.9 K/cumm Hgb 12.0 11.9 - 15.5 g/dL [facility] Hct 35.2(L) 35.6 - 45.5 % [facility] Plt 213 150 - 400 K/cumm [facility] MPV 10.3 9.1 - 12.3 fL [facility] RBC 4.44 3.90 - 5.20 M/cumm [facility] MCV 79.3(L) 81.3 - 96.4 fL [facility] MCH 27.0(L) 27.1 - 33.3 pg [facility] MCHC 34.1 32.3 - 35.7 g/dL [facility] RDW CV 13.9 11.1 - 14.9 % [facility] RDW SD 39.4 35.7 - 48.1 fL [facility] NRBC abs 0.00 0.00 - 0.01 K/cumm [facility] Blood 01/29/2025 2:26 PM CDT 01/29/2025 3:46 PM CDT Narrative [facility] - 01/29/2025 3:55 PM CDT CPAP ORDER Lazaro Flores MD LAB BLOOD ORDERABLES F inal Result Performing Organization Address [facility] Co de Phone Number [facility] Department [place] [address] * Protime-INR (01/29/2025 2:26 PM CDT) Pathologist [facility] PT 11.4 9.7 - 13.0 sec INR 1.05 0.90 - 1.20 [facility] Comment: Interpretive data Oral anticoagulant therapeutic ranges: Venous thromboembolism prophylaxis or treatment: 2.0-3.0 CARDIOLOGY Standard range: 2.0-3.0 High-intensity range: 2.5-3.5 Refer to indication-specific guidelines for appropriate target ranges for prosthetic heart valve replacement. Current interpretive data was last revised on 2019. Blood 01/29/2025 2:26 PM CDT 01/29/2025 3:49 PM CDT Sonya Kingsley DICTATING MACHINE MECHANIC LAB BLOOD ORDERABLES Aleksandra l Result Performing Organization Address [facility] Co de Phone Number [facility] Department [place] [address] * (ABNORMAL) Basic metabolic panel (01/29/2025 2:26 PM CDT) Sodium 141 135 - 145 mmol/L Potassium, pl 4.0 3.3 - 4.9 mmol/L [facility] Chloride 102 97 - 110 mmol/L [facility] CO2 32 22 - 32 mmol/L [facility] Anion gap 7 2 - 15 mmol/L [facility] BUN 22 6 - 25 mg/dL [facility] Creatinine 1.62(H) 0.60 - 1.10 mg/dL [facility] Glucose 166 70 - 199 mg/dL [facility] Comment: Interpretive Data Fasting glucose >/= [...] 2022. Calcium 9.5 8.5 - 10.3 mg/dL [facility] Blood 01/29/2025 2:26 PM CDT 01/29/2025 3:45 PM CDT Narrative [facility] - 01/29/2025 4:14 PM CDT CPAP ORDER Has the patient fasted?->No Lazaro Flores MD LAB BLOOD ORDERABLES F inal Result Performing Organization Address [facility] Co de Phone Number [facility] Department [place] [address] * (ABNORMAL) POCT hemoglobin A1c (01/29/2025 2:00 PM CDT) Pathologist [facility] Hgb A1C, POC 6.1(H) 4.0 - 5.6 % Est Average Gluc POC 128 mg/dL [facility] Comment: The ADA recommends reporting an estimated Average Glucose (eAG) with all Hemoglobin A1c results using the equation derived from a study of 507 normal and diabetic adults. Minority populations were underrepresented and children were not included. (Diabetes Care 31:2866-8822, 2008). The eAG is not equivalent to a fasting glucose. Blood 01/29/2025 2:00 PM CDT 01/29/2025 2:00 PM CDT Kamari Reyes MD POINT OF CARE TEST ORDER SUAD Final Result Performing Organization Address [facility]/ZIP Co de Phone Number [facility] [place] [address] * Lipid panel (10/20/2024 11:40 PM FAMILY ASSISTANT) Cholesterol 129 30 - 199 mg/dL Comment: [...] revised on 2018. Triglycerides 58 <=149 mg/dL [facility] Comment: Interpretive Data Ages < or [...] on 2018. HDL 65 >=40 mg/dL [facility] [facility] Comment: Interpretive Data Ages < or [...] on 2018. LDL, calculated 51 <=129 mg/dL JOSIE TIRADO Comment: Interpretive Data Ages < or = [...] 3. Everett M et al. TE Cardiol. 2020 March 06;5(5):540-548. doi: 10.1001/[email or web address].2020.0013 Current Interpretive Data was last revised on 2024. Non-HDL Cholesterol 64 mg/dL JOSIE TIRADO Comment: Interpretive Data Ages < or = [...] last revised on 2018. Chol/HDL ratio 2 JOSIE TIRADO Blood 10/20/2024 11:4 0 PM FAMILY ASSISTANT 10/21/2024 12:24 AM FAMILY ASSISTANT us Zen Odonnell MD LAB BLOOD ORDERABLES Final Resul t JOSIE CANDIDA [facility] [place] [address] * Screening Mammogram Bilateral W Ankit (05/29/2024 [...] age 39, based on guidelines of the [employer] [employer] (ACR Practice Parameter for the Performance of Screening and Diagnostic Mammography) and [employer] [employer]. For women [...] 1 or 2 Site (10/19/2023 2:04 PM FAMILY ASSISTANT) Anatomical Region Laterality Modality Body N/A Mammography 10/19/2023 7:06 PM FAMILY ASSISTANT Narrative 10/19/2023 7:07 PM FAMILY ASSISTANT EXAM DESCRIPTION: DEXA AXIAL SKELETON BONE DENSITY 1 OR MORE SITES REASON FOR STUDY: 73 y/o year old F with given history of: asymptomatic menopausal state Soldering Machine Operator/Model: Zoyi A (S/N [id number]) CLINICAL INFORMATION: Current height: 66 inches Maximum [...] Vijay Wang M.D. MF: RIVER Report ID: [id number] Reading Location: [id number] Procedure Note Vijay Wang MD - 10/19/2023 EXAM DESCRIPTION: DEXA AXIAL SKELETON BONE DENSITY 1 OR MORE SITES REASON FOR STUDY: 73 y/o year old F with given history of:asymptomatic menopausal state Soldering Machine Operator/Model: [employer] Colourjack A (S/N [id number]) CLINICAL INFORMATION: Current height: 66 inches Maximum [...] Vijay Wang M.D. MF: RIVER Report ID: [id number] Reading Location: [id number] Radha Duff MD IMG DXA PROCEDURES Final R esult from Last 3 Months or Most Recently Relevant to Health Maintenance [place] [address] [place] [employer] [facility] [place] [address] [employer] MEDICARE ADVANTAGE Advance Directives For more information, please contact: [phone] Documents on File Type Date Recorded Patient Dye House Helper Expl anation ADVANCE DIRECTIVE 01/26/2024 11:22 AM [employer] Liaison Officer-Financial/Medica l ADVANCE DIRECTIVE 01/26/2024 11:21 AM POLS [...] cardioversionNo internal / external pacemaker Care Teams Debt Counselor Relationship Specialty Start Date End Date Radha Duff MD [address] [address] PCP - General Internal Medicine 12/22/21 Stew Garcia MD [id number] [facility] [address] [address] Consulting Physician Cardiovascular Disease 05/02/24
--- OUTSIDE RECORDS SUMMARY | 2025-02-28 11:38 | XMS_ITS | Data Portability ---
Author Organization [facility] [employer] Address [address] [place] [address] Care Team Providers Care Custom Framing Specialist Name Role Phone EDDIE PARRISH Pediatric Pst Manager RADHA CHEATHAM Primary Care Provider Assessment Encounter Date Assessment Date Assessment LastModified by Organization Details LastModified Time 02/28/2024 02/28/2024 Patient presented for follow up. Studies ordered as below. Discussed plan with patient/caregi francie, who expressed understanding. Follow up as noted below. Not available 02/28/2024 15:29:03 04/25/2024 04/25/2024 Patient presented for follow up. Studies ordered as below. Discussed plan with patient/fratuni francie, who expressed understanding. Follow up as noted below. Not available 04/25/2024 15:53:26 10/24/2024 10/24/2024 Patient presented for follow up. Studies ordered as below. Discussed plan with patient/caregi francie, who expressed understanding. Follow up as noted below. Patient presented to office today for a follow up visit for a previous hospital visit that occurred on Patient presented to hospital for: Patient s condition is improved since discharge; patient denies any new problems since discharge. Medications were reviewed and any necessary updates and renewals were made. Discussed potential side effects of medications. Patient is compliant with medications. Counseling was done on care goals and ways to prevent future hospitalizatio ns. Emphasized preventive health measures and educated patient to help reduce health risks and promote healthy living. Scheduled follow-up appointment for / / to review health status and care plan and instructed patient whom to contact in case of emergency. Further treatment per orders below. [email or web address] Not available 10/24/2024 16:11:28 Plan of Treatment Reminders Order Date Submit Date Provider Last Modified By Organization Details Last Modified Time Details Appointments None recorded. Lab hemoglobin A1c, QN, blood 2023 024 [facility], [address], [place], [address], 4 04:03:38 microalbum in/creatin ine, mass ratio, urine 2023 024 [facility], [address], [place], [address], 4 04:03:38 CMP, serum or plasma 2023 024 [facility], [address], [place], [address], 4 10:05:05 CBC 2023 024 [facility], [address], [place], [address], 4 04:03:38 CBC w/ auto diff 2023 024 [facility], [address], [place], [address], 4 10:05:04 vitamin B12 + folate, serum or blood 2023 024 [facility], [address], [place], [address], 4 16:36:14 iron panel, serum or plasma 2023 024 [facility], [address], [place], [address], 4 16:36:14 pro BNP (pro B-type natriureti c peptide), serum or plasma 2023 024 [facility], [address], [place], [address], 4 04:06:35 vitamin D, 25-hydroxy , total, serum 2023 024 [facility], [address], [place], [address], 4 05:01:44 CMP, serum or plasma 2023 024 [facility], [address], [place], [address], 4 13:12:53 CBC 2023 024 [facility], [address], [place], [address], 4 05:01:44 hemoglobin A1c, QN, blood 2023 024 [facility], [address], [place], [address], 4 05:01:44 C-peptide, serum 2023 024 [facility], [address], [place], [address], 4 04:11:13 lipid panel w/ direct LDL, serum 2023 024 [facility], [address] [place], [address], 4 05:01:44 TSH, serum or plasma 2023 024 [facility], [address] [place], [address], 4 05:01:44 PTH (parathyro id hormone), intact, serum or plasma 2023 024 [facility], [address] [place], [address], 4 13:12:55 phosphorus , serum or plasma 2023 024 [facility], [address], [place], [address], 4 13:12:54 uric acid, serum or plasma 2023 024 [facility], [address], [place], [address], 4 13:12:56 CMP, serum or plasma 2023 024 [facility], [address], [place], [address], 4 02:30:18 CBC 2023 024 [facility], [address], [place], [address], 4 04:15:25 BMP, serum or plasma - 1-2 weeks from 02/21/242023 024 [facility], [address], [place], [address], 4 16:01:01 Referral neurologic al surgeon referral 2023 024 [facility], [address] [place] [address] 4, [place], [address], 5 14:03:41 neurologis t referral 2023 024 ROSINA Borges MD, [facility], [address] [place] [address] [address]: [address], [place], [address], 4 16:25:19 physical therapist referral 2023 024 [facility], [address], [address], [place], [address], 5 20:41:[address] referral 2023 024 SORAYA Garcia MD, [address] [place], [address], 4 04:09:26 Procedures None recorded. Surgeries None recorded. Imaging MAMMO, screening, digital, bilateral 2023 024 [facility] Patient Access Centralized Scheduling, Centralized Scheduling, [address] [facility] , [place], [address], 4 14:19:25 Medication Orders baclofen 10 mg tablet 2023 024 [facility], [address] , [place], [address], 4 16:17:52 amlodipine 10 mg tablet 2023 024 [facility], [address], [address], [place], [place], [id number], 4 16:17:47 carvedilol 25 mg tablet 2023 024 [facility], [address], [address], [place], [place], [id number], 4 16:17:49 aspirin 81 mg tablet,del ayed release 2023 024 [facility], [address], [address], [place], [place], [id number], 4 16:17:48 baclofen 10 mg tablet 2023 024 [facility], [address], [address], [place], [place], [id number], 4 16:36:08 doxazosin 2 mg tablet 2023 024 [facility], [address] [place] [address], [address], [place], [place], [id number], 4 16:11:59 furosemide 40 mg tablet 2023 024 [facility], [address] [place], [address], [place], [place], [id number], 4 16:22:56 furosemide 40 mg tablet 2023 024 [facility], [address] [facility] [address], [place], [address], 4 16:00:10 carvedilol 12.5 mg tablet 2023 024 [facility], [address] [facility] [address], [place], [address], 4 16:09:38 Farxiga 10 mg tablet 2023 024 [facility], [address] [employer] [facility] [address], [place], [address], 4 16:01:18 Patient TargetsNo targets recorded. Patient Instructions Encounter Date Encounter Id Patient Instructions Last Modified By Organization Details Last Modified Time 02/21/2024 [id number] leg and ankle edema: care instructions [email or web address] Not available 02/21/2024 16:00:02 cervical spinal stenosis: care instructions [email or web address] Not available 02/21/2024 16:00:02 02/28/2024 [id number] leg and ankle edema: care instructions [email or web address] Not available 02/28/2024 16:01:43 04/25/2024 [id number] mammogram: about this test [email or web address] Not available 04/25/2024 16:22:53 high cholesterol : care instructions [email or web address] Not available 04/25/2024 16:22:53 chronic kidney disease: care instructions [email or web address] Not available 04/25/2024 16:22:53 learning about chronic kidney disease [email or web address] Not available 04/25/2024 16:22:53 07/25/2024 [id number] arthritis: care instructions [email or web address] Not available 07/25/2024 16:36:06 mammogram: about this test [email or web address] Not available 07/25/2024 16:36:05 cervical spinal stenosis: care instructions mshenouda Not available 07/25/2024 16:36:04 sleep apnea: car e instructions [email or web address] Not available 07/25/2024 16:36:05 chronic kidney disease: care instructions [email or web address] Not available 07/25/2024 16:36:06 learning about chronic kidney disease mshenouda Not available 07/25/2024 16:36:05 anemia: care instructions mshenouda Not available 07/25/2024 16:36:05 albumin-creatini n e ratio: about this test mshenouda Not available 07/25/2024 16:36:05 leg and ankle edema: care instructions mshenouda Not available 07/25/2024 16:36:05 living will mshenouda Not available 07/07 16:28:15 10/24/2024 [id number] stroke: care instructions [email or web address] Not available 10/24/2024 16:17:44 back care and preventing injuries: care instructions mshenouda Not available 10/24/2024 16:17:43 getting back to normal after low back pain: care instructions mshenouda Not available 10/24/2024 16:17:44 learning about relief for back pain mshenouda Not available 10/24/2024 16:17:43 Reason for Referral Crotch Breaker Referral for Ed clem of lower extremity Referring Physician: Radha Cheatham, Internal Medicine, Encounter Date: 04/25/2024 Neurological Surgeon Referra l for 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 Referring Physician: Radha Cheatham Internal Medicine, Encounter Date: 10/24/2024 Neurologist Referral for Cer ebrovascular accident Referring Physician: Radha Cheatham Internal Medicine, Encounter Date: 10/24/2024 Physical Therapist Referral for Low back pain Referring Physician: Radha Cheatham Internal Medicine, Encounter Date: 10/24/2024 Results Created Date Observation Date Name Description Value Unit Range Abnormal Flag Note LastModifiedBy Organization Detail LastModifiedTime 02/29/20 24 02/29/2024 CBC WITH AUTO- DIFFE RENTI AL WBC 5.1 10*3/ uL 3.4-10 .8 Not Available [facility] [address], [place], [address], 02/29/2024 16:16:31 02/29/20 24 02/29/2024 CBC WITH AUTO- DIFFE RENTI AL RBC 4.37 10*6/ uL 4.20-5 .80 Not Available [facility] [address], [place], [address], 02/29/2024 16:16:31 02/29/20 24 02/29/2024 CBC WITH AUTO- DIFFE RENTI AL HGB 11.9 g/dL 12.6-1 7.7 low Not Available [facility] [address], [place], [address], 02/29/2024 16:16:31 02/29/2002/29/2024 CBC WITH AUTO- DIFFE RENTI AL HCT 36.0 % 37.5-5 1.0 low Not Available [facility] [address], [place], [address], 02/29/2024 16:16:31 02/29/2002/29/2024 CBC WITH AUTO- DIFFE RENTI AL MCV 82 fL 79-97 Not Available [facility] [address], [place], [address], 02/29/2024 16:16:31 02/29/20 24 02/29/2024 CBC WITH AUTO- DIFFE RENTI AL MCH 27.2 pg 26.6-3 3.0 Not Available [facility] [address] [facility] [address], [place], [address], 02/29/2024 16:16:31 02/29/20 24 02/29/2024 CBC WITH AUTO- DIFFE RENTI AL MCHC 33.1 g/dL 31.5-3 5.7 Not Available [facility] [address], [place], [address], 02/29/2024 16:16:31 02/29/20 24 02/29/2024 CBC WITH AUTO- DIFFE RENTI AL RDW 14.8 % 11.5-1 4.5 high Not Available [facility] [address], [place], [address], 02/29/2024 16:16:31 02/29/20 24 02/29/2024 CBC WITH AUTO- DIFFE RENTI AL platelets 226 10*3/ uL 150-40 0 Not Available [facility] [address], [place], [address], 02/29/2024 16:16:31 02/29/20 24 02/29/2024 CBC WITH AUTO- DIFFE RENTI AL MPV 11 fL 9-13 Not Available [facility] [address], [place], [address], 02/29/2024 16:16:31 02/29/20 24 02/29/2024 CBC WITH AUTO- DIFFE RENTI AL neutrophils 57.2 % 40.0-7 4.0 Not Available [facility] [address], [place], [address], 02/29/2024 16:16:31 02/29/20 24 02/29/2024 CBC WITH AUTO- DIFFE RENTI AL absolute neutrophils 2.90 10*3/ uL 1.40-7 .00 Not Available [facility] [address], [place], [address], 02/29/2024 16:16:31 02/29/20 24 02/29/2024 CBC WITH AUTO- DIFFE RENTI AL lymphocytes 28.2 % 14.0-4 6.0 Not Available [facility] [address] [facility] [address], [place], [address], 02/29/2024 16:16:31 02/29/20 24 02/29/2024 CBC WITH AUTO- DIFFE RENTI AL absolute lymphocytes 1.43 10*3/ uL 0.70-3 .10 Not Available [facility] [address] [facility] [address], [place], [address], 02/29/2024 16:16:31 02/29/20 24 02/29/2024 CBC WITH AUTO- DIFFE RENTI AL monocytes 9.3 % 4.0-12 .0 Not Available [facility] [address] [facility] [address], [place], [address], 02/29/2024 16:16:31 02/29/20 24 02/29/2024 CBC WITH AUTO- DIFFE RENTI AL absolute monocytes 0.47 10*3/ uL 0.10-0 .90 Not Available [facility] [address] [facility] [address], [place], [address], 02/29/2024 16:16:31 02/29/20 24 02/29/2024 CBC WITH AUTO- DIFFE RENTI AL eosinophils 3.9 % 0.0-5. 0 Not Available [facility] [address] [facility] [address], [place], [address], 02/29/2024 16:16:31 02/29/20 24 02/29/2024 CBC WITH AUTO- DIFFE RENTI AL absolute eosinophils 0.20 10*3/ uL 0.00-0 .40 Not Available [facility] [address] [facility] [address], [place], [address], 02/29/2024 16:16:31 02/29/20 24 02/29/2024 CBC WITH AUTO- DIFFE RENTI AL basophils 1.0 % 0.0-3. 0 Not Available [facility] [address] [facility] [address], [place], [address], 02/29/2024 16:16:31 02/29/20 24 02/29/2024 CBC WITH AUTO- DIFFE RENTI AL absolute basophils 0.05 10*3/ uL 0.00-0 .20 Not Available [facility] [address] [facility] [address], [place], [address], 02/29/2024 16:16:31 02/29/20 24 02/29/2024 CBC WITH AUTO- DIFFE RENTI AL imm. gran. 0.4 % 0.0-2. 0 Not Available [facility] [address] [facility] [address], [place], [address], 02/29/2024 16:16:31 02/29/20 24 02/29/2024 CBC WITH AUTO- DIFFE RENTI AL abs. imm. gran. 0.02 10*3/ uL 0.00-0 .10 Not Available [facility] [address] [facility] [address], [place], [address], 02/29/2024 16:16:31 02/29/20 24 02/29/2024 COMPR EHENS AYE METAB OLIC PANEL sodium 147 mmol/ L 134-14 4 high Not Available [facility] [address] [facility] [address], [place], [address], 02/29/2024 16:16:32 02/29/20 24 02/29/2024 COMPR EHENS AYE METAB OLIC PANEL potassium 5.1 mmol/ L 3.5-5. 2 Not Available [facility] [address] [facility] [address], [place], [address], 02/29/2024 16:16:32 02/29/20 24 02/29/2024 COMPR EHENS AYE METAB OLIC PANEL chloride 108 mmol/ L 97-108 Not Available [facility] [address] [place] [address] [address], [place], [address], 02/29/2024 16:16:32 02/29/20 24 02/29/2024 COMPR EHENS AYE METAB OLIC PANEL carbon dioxide (co2) 29.0 mmol/ L 18.0-2 9.0 Not Available [facility] [address] [facility] [address], [place], [address], 02/29/2024 16:16:32 02/29/20 24 02/29/2024 COMPR EHENS AYE METAB OLIC PANEL glucose 67 mg/dL 65-99 Michelle l Fasti ng: < 100 mg/dL Impai red Fasti n - 125 mg/dL Diagn ostic of Diabe michael: => 126 mg/dL Ameri can Diabe michael Ass[facility] iatio n, 2007 Not Available [facility] [address] [facility] [address], [place], [address], 02/29/2024 16:16:32 02/29/20 24 02/29/2024 COMPR EHENS YAE METAB OLIC PANEL urea nitrogen (BUN) 20 mg/dL 8-23 Not Available [facility] [address] [facility] [address], [place], [address], 02/29/2024 16:16:32 02/29/20 24 02/29/2024 COMPR EHENS AYE METAB OLIC PANEL creatinine 1.55 mg/dL 0.76-1 .27 high Not Available [facility] [address] [facility] [address], [place], [address], 02/29/2024 16:16:32 02/29/20 24 02/29/2024 COMPR EHENS AYE METAB OLIC PANEL eGFR for nonafrican AM 44 mL/mi nute/ 1.73_ m2 >59 low Not Available [facility] [address] [facility] [address], [place], [address], 02/29/2024 16:16:32 02/29/20 24 02/29/2024 COMPR EHENS AYE METAB OLIC PANEL eGFR for AM 53 mL/mi nute/ 1.73_ m2 >59 low MDRD Study Equat ion: The calcu lated GFR is NOT appli cable for pedia tric (< 18 years old) and > 70 year old patie nts and patie nts that are NOT of [place] . Not Available [facility] [address] [facility] [address], [place], [address], 02/29/2024 16:16:32 02/29/20 24 02/29/2024 COMPR EHENS AYE METAB OLIC PANEL calcium 9.7 mg/dL 8.6-10 .2 Not Available [facility] [address] [facility] [address], [place], [address], 02/29/2024 16:16:32 02/29/20 24 02/29/2024 COMPR EHENS AYE METAB OLIC PANEL protein, total 6.6 gm/dL 6.4-8. 3 Not Available [facility] [address] [facility] [address], [place], [address], 02/29/2024 16:16:32 02/29/20 24 02/29/2024 COMPR EHENS AYE METAB OLIC PANEL albumin 4.1 gm/dL 3.5-5. 2 Not Available [facility] [address] [facility] [address], [place], [address], 02/29/2024 16:16:32 02/29/20 24 02/29/2024 COMPR EHENS AYE METAB OLIC PANEL bilirubin, total 0.50 mg/dL 0.00-1 .20 Not Available [facility] [address] [facility] [address], [place], [address], 02/29/2024 16:16:32 02/29/20 24 02/29/2024 COMPR EHENS AYE METAB OLIC PANEL alkaline phosphatase (ALP) 113 U/L 39-117 Not Available [facility] [address] [facility] [address], [place], [address], 02/29/2024 16:16:32 02/29/20 24 02/29/2024 COMPR EHENS AYE METAB OLIC PANEL aspartate aminotransfe rase (AST) 29 U/L 0-40 Not Available [facility] [address] [facility] [address], [place], [address], 02/29/2024 16:16:32 02/29/20 24 02/29/2024 COMPR EHENS AYE METAB OLIC PANEL alanine aminotransfe rase (ALT) 36 U/L 0-41 Not Available [facility] [address] [facility] [address], [place], [address], 02/29/2024 16:16:32 02/29/20 24 02/29/2024 COMPR EHENS AYE METAB OLIC PANEL A/G ratio (calculated) 1.6 ratio 1.0-2. [address] [facility] [address] [facility] [address], [place], [address], 02/29/2024 16:16:32 02/29/20 24 02/29/2024 COMPR EHENS AYE METAB OLIC PANEL globulin (calculated) 2.5 gm/dL 1.5-3. [address] [facility] [address] [facility] [address], [place], [address], 02/29/2024 16:16:32 02/29/20 24 02/29/2024 COMPR EHENS AYE METAB OLIC PANEL BUN/creatini ne ratio (calculated) 12.9 ratio 8.0-20 .[address] [facility] [address] [facility] [address], [place], [address], 02/29/2024 16:16:32 02/29/20 24 02/29/2024 COMPR EHENS AYE METAB OLIC PANEL serum hemolysis index Normal index normal Not Available [facility] [address] [facility] [address], [place], [address], 02/29/2024 16:16:32 03/05/20 24 03/05/2024 FOLAT E, SERUM folate 15.3 NG/mL 20 REFER ENCE RANGE : Michelle l: > 3.0 ng/mL Inter media te: 2.2 - 3.0 ng/mL Defic ient: < 2.2 ng/mL Not Available [facility] [address] [facility] [address], [place], [address], 03/07/2024 11:34:47 03/05/20 24 03/05/2024 IRON PANEL iron 55 mcg/d L Not Available [facility] [address] [facility] [address], [place], [address], 03/07/2024 11:34:48 03/05/20 24 03/05/2024 IRON PANEL UIBC 241 ug/dL 111-34 3 Not Available [facility] [address] [facility] [address], [place], [address], 03/07/2024 11:34:48 03/05/20 24 03/05/2024 IRON PANEL total iron binding capacity 296.0 mcg/d L 250.0- 450.0 Not Available [facility] [address] [facility] [address], [place], [address], 03/07/2024 11:34:48 03/05/20 24 03/05/2024 IRON PANEL iron saturation (calculated) 18.6 % 15.0-5 5.0 Not Available [facility] [address] [facility] [address], [place], [address], 03/07/2024 11:34:48 03/05/20 24 03/05/2024 VITAM IN B12 vitamin B12 625 pg/mL 232-12 45 Not Available [facility] [address] [facility] [address], [place], [address], 03/07/2024 11:34:48 03/05/20 24 03/05/2024 RETIC ULOCY TE COUNT RBC 4.50 10*6/ uL 4.20-5 .80 Not Available [facility] [address], [place], [address], 03/07/2024 11:34:49 03/05/20 24 03/05/2024 RETIC ULOCY TE COUNT reticulocyte count 2.5 % 0.6-2. 6 Not Available [facility] [address] [facility] [address], [place], [address], 03/07/2024 11:34:49 03/05/20 24 03/05/2024 RETIC ULOCY TE COUNT absolute reticulocyte 0.111 10*6/ uL 0.026- 0.095 high Not Available [facility] [address] [facility] [address], [place], [address], 03/07/2024 11:34:49 04/26/20 24 04/26/2024 HEMOG LOBIN A1C hemoglobin A1C 6.2 % 4.8-5. 6 high MICHELLE L RANGE BASED ON JAY COL 2 (DCCT /NGSP ): Non-D iabet ic: < 5.7% Pre-D iabet es: 5.7 - 6.4% Diabe michael: => 6.5% GLYCE SAMANTA CONTR OL: < 7.0% Not Available [facility] [address] [facility] [address], [place], [address], 04/28/2024 13:12:51 04/26/20 24 04/26/2024 HEMOG LOBIN A1C estimated average glucose 130 Not Available [facility] [address] [facility] [address], [place], [address], 04/28/2024 13:12:51 04/26/20 24 04/26/2024 *C-PE PTIDE C-peptide 1.9 NG/mL 1.1-4. 4 NOTE: REFER ENCE RANGE APPLI ES TO FASTI NG SAMPL E ONLY. Not Available [facility] [address] [facility] [address], [place], [address], 04/28/2024 13:12:52 04/26/20 24 04/26/2024 COMPR EHENS AYE METAB OLIC PANEL sodium 143 mmol/ L 134-14 4 Not Available [facility] [address] [facility] [address], [place], [address], 04/28/2024 13:12:53 04/26/20 24 04/26/2024 COMPR EHENS AYE METAB OLIC PANEL potassium 4.4 mmol/ L 3.5-5. 2 Not Available [facility] [address] [facility] [address], [place], [address], 04/28/2024 13:12:53 04/26/20 24 04/26/2024 COMPR EHENS AYE METAB OLIC PANEL chloride 108 mmol/ L 97-108 Not Available [facility] [address] [facility] [address], [place], [address], 04/28/2024 13:12:53 04/26/20 24 04/26/2024 COMPR EHENS AYE METAB OLIC PANEL carbon dioxide (co2) 28.0 mmol/ L 18.0-2 9.0 Not Available [facility] [address] [facility] [address], [place], [address], 04/28/2024 13:12:53 04/26/20 24 04/26/2024 COMPR EHENS AYE METAB OLIC PANEL glucose 108 mg/dL 65-99 high Michelle l Fasti ng: < 100 mg/dL Impai red Fasti n - 125 mg/dL Diagn ostic of Diabe michael: => 126 mg/dL Ameri can Di[facility] michael [facility] n, 2008 Not Available [facility] [address] [facility] [address], [place], [address], 04/28/2024 13:12:53 04/26/20 24 04/26/2024 COMPR EHENS AYE METAB OLIC PANEL urea nitrogen (BUN) 21 mg/dL 8-23 Not Available [facility] [address] [facility] [address], [place], [address], 04/28/2024 13:12:53 04/26/20 24 04/26/2024 COMPR EHENS AYE METAB OLIC PANEL creatinine 1.47 mg/dL 0.76-1 .27 high Not Available [facility] [address] [facility] [address], [place], [address], 04/28/2024 13:12:53 04/26/20 24 04/26/2024 COMPR EHENS AYE METAB OLIC PANEL eGFR for nonafrican AM 47 mL/mi nute/ 1.73_ m2 >59 low Not Available [facility] [address] [facility] [address], [place], [address], 04/28/2024 13:12:53 04/26/20 24 04/26/2024 COMPR EHENS AYE METAB OLIC PANEL eGFR for AM 57 mL/mi nute/ 1.73_ m2 >59 low MDRD Study Equat ion: The calcu lated GFR is NOT appli cable for pedia tric (< 18 years old) and > 70 year old patie nts and patie nts that are NOT of stead y state . Not Available [facility] [address] [facility] [address], [place], [address], 04/28/2024 13:12:53 04/26/20 24 04/26/2024 COMPR EHENS AYE METAB OLIC PANEL calcium 9.2 mg/dL 8.6-10 .2 Not Available [facility] [address] [facility] [address], [place], [address], 04/28/2024 13:12:53 04/26/20 24 04/26/2024 COMPR EHENS AYE METAB OLIC PANEL protein, total 6.5 gm/dL 6.4-8. 3 Not Available [facility] [address] [facility] [address], [place], [address], 04/28/2024 13:12:53 04/26/20 24 04/26/2024 COMPR EHENS AYE METAB OLIC PANEL albumin 4.0 gm/dL 3.5-5. 2 Not Available [facility] [address] [facility] [address], [place], [address], 04/28/2024 13:12:53 04/26/20 24 04/26/2024 COMPR EHENS AYE METAB OLIC PANEL bilirubin, total 0.40 mg/dL 0.00-1 .20 Not Available [facility] [address] [facility] [address], [place], [address], 04/28/2024 13:12:53 04/26/20 24 04/26/2024 COMPR EHENS AYE METAB OLIC PANEL alkaline phosphatase (ALP) 106 U/L 39-117 Not Available [facility] [address] [facility] [address], [place], [address], 04/28/2024 13:12:53 04/26/20 24 04/26/2024 COMPR EHENS AYE METAB OLIC PANEL aspartate aminotransfe rase (AST) 36 U/L 0-40 Not Available [facility] [address] [facility] [address], [place], [address], 04/28/2024 13:12:53 04/26/20 24 04/26/2024 COMPR EHENS AYE METAB OLIC PANEL alanine aminotransfe rase (ALT) 51 U/L 0-41 high Not Available [facility] [address] [facility] [address], [place], [address], 04/28/2024 13:12:53 04/26/20 24 04/26/2024 COMPR EHENS AYE METAB OLIC PANEL A/G ratio (calculated) 1.6 ratio 1.0-2. [address] [facility] [address] [facility] [address], [place], [address], 04/28/2024 13:12:53 04/26/20 24 04/26/2024 COMPR EHENS AYE METAB OLIC PANEL globulin (calculated) 2.5 gm/dL 1.5-3. 8 Not Available [facility] [address] [facility] [address], [place], [address], 04/28/2024 13:12:53 04/26/20 24 04/26/2024 COMPR EHENS AYE METAB OLIC PANEL BUN/creatini ne ratio (calculated) 14.3 ratio 8.0-20 .0 Not Available [facility] [address] [facility] [address], [place], [address], 04/28/2024 13:12:53 04/26/20 24 04/26/2024 COMPR EHENS AYE METAB OLIC PANEL serum hemolysis index NORMAL index normal Not Available [facility] [address] [facility] [address], [place], [address], 04/28/2024 13:12:53 04/26/20 24 04/26/2024 LIPID PANEL W/ CALC. LDL cholesterol, total 130 mg/dL 100-19 9 Not Available [facility] [address] [facility] [address], [place], [address], 04/28/2024 13:12:54 04/26/20 24 04/26/2024 LIPID PANEL W/ CALC. LDL HDL cholesterol 64 mg/dL =>40 Not Available [facility] [address] [facility] [address], [place], [address], 04/28/2024 13:12:54 04/26/20 24 04/26/2024 LIPID PANEL W/ CALC. LDL LDL cholesterol (calculated) 48 mg/dL 0-99 Not Available [facility] [address] [facility] [address], [place], [address], 04/28/2024 13:12:54 04/26/20 24 04/26/2024 LIPID PANEL W/ CALC. LDL triglyceride s 92 mg/dL 50-149 Not Available [facility] [address] [facility] [address], [place], [address], 04/28/2024 13:12:54 04/26/20 24 04/26/2024 LIPID PANEL W/ CALC. LDL chol/HDL ratio (calculated) 2.03 ratio 0.00-5 .00 Not Available [facility] [address] [facility] [address], [place], [address], 04/28/2024 13:12:54 04/26/20 24 04/26/2024 LIPID PANEL W/ CALC. LDL VLDL cholesterol (calculated) 18 mg/dL 5-40 Not Available [facility] [address] [facility] [address], [place], [address], 04/28/2024 13:12:54 04/26/20 24 04/26/2024 PHOSP HOROU S phosphorous 4.1 mg/dL 2.5-4. 5 Not Available [facility] [address] [facility] [address], [place], [address], 04/28/2024 13:12:54 04/26/20 24 04/26/2024 PARAT HYROI D HORMO NE (PTH) , INTAC T parathyroid hormone (PTH), intact 65.1 pg/mL 15.0-6 5.0 high Not Available [facility] [address] [facility] [address], [place], [address], 04/28/2024 13:12:55 04/26/20 24 04/26/2024 THYRO ID-ST IM. HORMO NE (TSH) , HIGH- SENSI TIVE thyroid-stim . hormone (TSH), hs 0.82 uIU/m L 0.27-4 .20 Not Available [facility] [address] [facility] [address], [place], [address], 04/28/2024 13:12:55 04/26/20 24 04/26/2024 URIC ACID uric acid 3.9 mg/dL 3.7-8. 6 Not Available [facility] [address] [facility] [address], [place], [address], 04/28/2024 13:12:56 04/26/20 24 04/26/2024 VITAM IN D, 25-HY DROXY TOTAL vitamin D, total 53.3 NG/mL 30.0-1 00.0 The Vitam in D Assay carline rodriguez n has been updat ed to offer direc t trace abili ty to ID-LC -MS/M S Refer ence Measu remen t Proce dure along with a reduc tion in bioti n inter feren ce. Defic ient: < 20 ng/mL Insuf ficie nt: 21 - 29 ng/mL Suffi cient : 30 - 100 ng/mL Poten tial Intox icati on: > 100 ng/mL Not Available [facility] [address] [facility] [address], [place], [address], 04/28/2024 13:12:56 04/26/20 24 04/26/2024 CBC WITH AUTO- DIFFE RENTI AL WBC 5.0 10*3/ uL 3.4-10 .8 Not Available [facility] [address] [facility] [address], [place], [address], 04/28/2024 13:12:57 04/26/20 24 04/26/2024 CBC WITH AUTO- DIFFE RENTI AL RBC 4.53 10*6/ uL 4.20-5 .80 Not Available [facility] [address] [facility] [address], [place], [address], 04/28/2024 13:12:57 04/26/20 24 04/26/2024 CBC WITH AUTO- DIFFE RENTI AL HGB 11.8 g/dL 12.6-1 7.7 low Not Available [facility] [address] [facility] [address], [place], [address], 04/28/2024 13:12:57 04/26/20 24 04/26/2024 CBC WITH AUTO- DIFFE RENTI AL HCT 38.2 % 37.5-5 1.0 Not Available [facility] [address] [facility] [address], [place], [address], 04/28/2024 13:12:57 04/26/20 24 04/26/2024 CBC WITH AUTO- DIFFE RENTI AL MCV 84 fL 79-97 Not Available [facility] [address], [place], [address], 04/28/2024 13:12:57 04/26/20 24 04/26/2024 CBC WITH AUTO- DIFFE RENTI AL MCH 26.0 pg 26.6-3 3.0 low Not Available [facility] [address], [place], [address], 04/28/2024 13:12:57 04/26/20 24 04/26/2024 CBC WITH AUTO- DIFFE RENTI AL MCHC 30.9 g/dL 31.5-3 5.7 low Not Available [facility] [address], [place], [address], 04/28/2024 13:12:57 04/26/20 24 04/26/2024 CBC WITH AUTO- DIFFE RENTI AL RDW 15.2 % 11.5-1 4.5 high Not Available [facility] [address], [place], [address], 04/28/2024 13:12:57 04/26/20 24 04/26/2024 CBC WITH AUTO- DIFFE RENTI AL platelets 206 10*3/ uL 150-40 0 Not Available [facility] [address], [place], [address], 04/28/2024 13:12:57 04/26/20 24 04/26/2024 CBC WITH AUTO- DIFFE RENTI AL MPV 11 fL 9-13 Not Available [facility] [address] [facility] [address], [place], [address], 04/28/2024 13:12:57 04/26/20 24 04/26/2024 CBC WITH AUTO- DIFFE RENTI AL neutrophils 54.1 % 40.0-7 4.0 Not Available [facility] [address] [facility] [address], [place], [address], 04/28/2024 13:12:57 04/26/20 24 04/26/2024 CBC WITH AUTO- DIFFE RENTI AL absolute neutrophils 2.73 10*3/ uL 1.40-7 .00 Not Available [facility] [address] [facility] [address], [place], [address], 04/28/2024 13:12:57 04/26/20 24 04/26/2024 CBC WITH AUTO- DIFFE RENTI AL lymphocytes 29.6 % 14.0-4 6.0 Not Available [facility] [address] [facility] [address], [place], [address], 04/28/2024 13:12:57 04/26/20 24 04/26/2024 CBC WITH AUTO- DIFFE RENTI AL absolute lymphocytes 1.49 10*3/ uL 0.70-3 .10 Not Available [facility] [address] [facility] [address], [place], [address], 04/28/2024 13:12:57 04/26/20 24 04/26/2024 CBC WITH AUTO- DIFFE RENTI AL monocytes 9.9 % 4.0-12 .0 Not Available [facility] [address] [place] [address] [address], [place], [address], 04/28/2024 13:12:57 04/26/20 24 04/26/2024 CBC WITH AUTO- DIFFE RENTI AL absolute monocytes 0.50 10*3/ uL 0.10-0 .90 Not Available [facility] [address] [facility] [address], [place], [address], 04/28/2024 13:12:57 04/26/20 24 04/26/2024 CBC WITH AUTO- DIFFE RENTI AL eosinophils 4.8 % 0.0-5. 0 Not Available [facility] [address] [facility] [address], [place], [address], 04/28/2024 13:12:57 04/26/20 24 04/26/2024 CBC WITH AUTO- DIFFE RENTI AL absolute eosinophils 0.24 10*3/ uL 0.00-0 .40 Not Available [facility] [address] [facility] [address], [place], [address], 04/28/2024 13:12:57 04/26/20 24 04/26/2024 CBC WITH AUTO- DIFFE RENTI AL basophils 0.8 % 0.0-3. 0 Not Available [facility] [address] [facility] [address], [place], [address], 04/28/2024 13:12:57 04/26/20 24 04/26/2024 CBC WITH AUTO- DIFFE RENTI AL absolute basophils 0.04 10*3/ uL 0.00-0 .20 Not Available [facility] [address] [facility] [address], [place], [address], 04/28/2024 13:12:57 04/26/20 24 04/26/2024 CBC WITH AUTO- DIFFE RENTI AL imm. gran. 0.8 % 0.0-2. 0 Not Available [facility] [address] [facility] [address], [place], [address], 04/28/2024 13:12:57 04/26/20 24 04/26/2024 CBC WITH AUTO- DIFFE RENTI AL abs. imm. gran. 0.04 10*3/ uL 0.00-0 .10 Not Available [facility] [address] [facility] [address], [place], [address], 04/28/2024 13:12:57 04/26/20 24 04/28/2024 PRO BNP nt-probnp 65 pg/mL 0-376 normal The follo wing cut-p oints have been sugge sted for the use of proBN P for the diagn ostic evalu ation of heart failu re (HF) in patie nts with acute dyspn ea: Modal ity Age Optim al Cut (year s) Point ----- ----- ----- ----- ----- ----- ----- ----- ----- ----- ---- Diagn osis (rule in HF) <50 450 pg/mL 50 - 75 900 pg/mL >75 1800 pg/mL Exclu paulino (rule out HF) Age indep enden t 300 pg/mL Not Available [facility] [address] [facility] [address], [place], [address], 04/28/2024 13:12:57 07/25/20 24 07/25/2024 HEMOG LOBIN A1C hemoglobin A1C 6.3 % 4.8-5. 6 high MICHELLE L RANGE BASED ON JAY COL 2 (DCCT /NGSP ): Non-D iabet ic: < 5.7% Pre-D iabet es: 5.7 - 6.4% Diabe michael: => 6.5% GLYCE SAMANTA CONTR OL: < 7.0% Not Available [facility] [address] [facility] [address], [place], [address], 07/29/2024 10:05:03 07/25/20 24 07/25/2024 HEMOG LOBIN A1C estimated average glucose 133 Not Available [facility] [address] [facility] [address], [place], [address], 07/29/2024 10:05:03 07/25/20 24 07/25/2024 CBC WITH AUTO- DIFFE RENTI AL WBC 6.3 10*3/ uL 3.4-10 .8 Not Available [facility] [address] [facility] [address], [place], [address], 07/29/2024 10:05:04 07/25/20 24 07/25/2024 CBC WITH AUTO- DIFFE RENTI AL RBC 4.32 10*6/ uL 4.20-5 .80 Not Available [facility] [address], [place], [address], 07/29/2024 10:05:04 07/25/20 24 07/25/2024 CBC WITH AUTO- DIFFE RENTI AL HGB 11.4 g/dL 12.6-1 7.7 low Not Available [facility] [address] [facility] [address], [place], [address], 07/29/2024 10:05:04 07/25/20 24 07/25/2024 CBC WITH AUTO- DIFFE RENTI AL HCT 35.3 % 37.5-5 1.0 low Not Available [facility] [address] [facility] [address], [place], [address], 07/29/2024 10:05:04 07/25/20 24 07/25/2024 CBC WITH AUTO- DIFFE RENTI AL MCV 82 fL 79-97 Not Available [facility] [address] [facility] [address], [place], [address], 07/29/2024 10:05:04 07/25/20 24 07/25/2024 CBC WITH AUTO- DIFFE RENTI AL MCH 26.4 pg 26.6-3 3.0 low Not Available [facility] [address] [facility] [address], [place], [address], 07/29/2024 10:05:04 07/25/20 24 07/25/2024 CBC WITH AUTO- DIFFE RENTI AL MCHC 32.3 g/dL 31.5-3 5.7 Not Available [facility] [address] [facility] [address], [place], [address], 07/29/2024 10:05:04 07/25/20 24 07/25/2024 CBC WITH AUTO- DIFFE RENTI AL RDW 15.7 % 11.5-1 4.5 high Not Available [facility] [address] [facility] [address], [place], [address], 07/29/2024 10:05:04 07/25/20 24 07/25/2024 CBC WITH AUTO- DIFFE RENTI AL platelets 277 10*3/ uL 150-40 0 Not Available [facility] [address], [place], [address], 07/29/2024 10:05:04 07/25/20 24 07/25/2024 CBC WITH AUTO- DIFFE RENTI AL MPV 11 fL 9-13 Not Available [facility] [address] [facility] [address], [place], [address], 07/29/2024 10:05:04 07/25/20 24 07/25/2024 CBC WITH AUTO- DIFFE RENTI AL neutrophils 58.0 % 40.0-7 4.0 Not Available [facility] [address], [place], [address], 07/29/2024 10:05:04 07/25/20 24 07/25/2024 CBC WITH AUTO- DIFFE RENTI AL absolute neutrophils 3.66 10*3/ uL 1.40-7 .00 Not Available [facility] [address], [place], [address], 07/29/2024 10:05:04 07/25/20 24 07/25/2024 CBC WITH AUTO- DIFFE RENTI AL lymphocytes 26.9 % 14.0-4 6.0 Not Available [facility] [address], [place], [address], 07/29/2024 10:05:04 07/25/20 24 07/25/2024 CBC WITH AUTO- DIFFE RENTI AL absolute lymphocytes 1.70 10*3/ uL 0.70-3 .[address] [facility] [address] [facility] [address], [place], [address], 07/29/2024 10:05:04 07/25/20 24 07/25/2024 CBC WITH AUTO- DIFFE RENTI AL monocytes 9.7 % 4.0-12 .0 Not Available [facility] [address] [facility] [address], [place], [address], 07/29/2024 10:05:04 07/25/20 24 07/25/2024 CBC WITH AUTO- DIFFE RENTI AL absolute monocytes 0.61 10*3/ uL 0.10-0 .[address] [facility] [address] [facility] [address], [place], [address], 07/29/2024 10:05:04 07/25/20 24 07/25/2024 CBC WITH AUTO- DIFFE RENTI AL eosinophils 3.8 % 0.0-5. [address] [facility] [address] [facility] [address], [place], [address], 07/29/2024 10:05:04 07/25/20 24 07/25/2024 CBC WITH AUTO- DIFFE RENTI AL absolute eosinophils 0.24 10*3/ uL 0.00-0 .40 Not Available [facility] [address] [facility] [address], [place], [address], 07/29/2024 10:05:04 07/25/20 24 07/25/2024 CBC WITH AUTO- DIFFE RENTI AL basophils 1.0 % 0.0-3. [address] [facility] [address] [facility] [address], [place], [address], 07/29/2024 10:05:04 07/25/20 24 07/25/2024 CBC WITH AUTO- DIFFE RENTI AL absolute basophils 0.06 10*3/ uL 0.00-0 .20 Not Available [facility] [address] [facility] [address], [place], [address], 07/29/2024 10:05:04 07/25/20 24 07/25/2024 CBC WITH AUTO- DIFFE RENTI AL imm. gran. 0.6 % 0.0-2. 0 Not Available [facility] [address] [facility] [address], [place], [address], 07/29/2024 10:05:04 07/25/20 24 07/25/2024 CBC WITH AUTO- DIFFE RENTI AL abs. imm. gran. 0.04 10*3/ uL 0.00-0 .10 Not Available [facility] [address] [facility] [address], [place], [address], 07/29/2024 10:05:04 07/25/20 24 07/25/2024 COMPR EHENS AYE METAB OLIC PANEL sodium 143 mmol/ L 134-14 4 Not Available [facility] [address] [facility] [address], [place], [address], 07/29/2024 10:05:04 07/25/20 24 07/25/2024 COMPR EHENS AYE METAB OLIC PANEL potassium 4.7 mmol/ L 3.5-5. 2 Not Available [facility] [address] [facility] [address], [place], [address], 07/29/2024 10:05:04 07/25/20 24 07/25/2024 COMPR EHENS AYE METAB OLIC PANEL chloride 103 mmol/ L 98-107 Not Available [facility] [address] [facility] [address], [place], [address], 07/29/2024 10:05:04 07/25/20 24 07/25/2024 COMPR EHENS AYE METAB OLIC PANEL carbon dioxide (co2) 27.0 mmol/ L 18.0-2 9.0 Not Available [facility] [address] [place] [address] [address], [place], [address], 07/29/2024 10:05:04 07/25/20 24 07/25/2024 COMPR EHENS AYE METAB OLIC PANEL glucose 127 mg/dL 65-99 high Michelle l Fasti n - 99 mg/dL Impai red Fasti n - 125 mg/dL Diagn ostic of Diabe micheal: => 126 mg/dL Ameri can Diabe michael [facility] iatio n, 2007 Not Available [facility] [address] [facility] [address], [place], [address], 07/29/2024 10:05:04 07/25/20 24 07/25/2024 COMPR EHENS AYE METAB OLIC PANEL urea nitrogen (BUN) 23 mg/dL 8-23 Not Available [facility] [address] [facility] [address], [place], [address], 07/29/2024 10:05:04 07/25/20 24 07/25/2024 COMPR EHENS AYE METAB OLIC PANEL creatinine 1.81 mg/dL 0.76-1 .27 high Not Available [facility] [address] [facility] [address], [place], [address], 07/29/2024 10:05:04 07/25/20 24 07/25/2024 COMPR EHENS AYE METAB OLIC PANEL eGFR 39 mL/mi nute/ 1.73_ m2 >59 low MDRD Study Equat ion: The calcu lated GFR is NOT appli cable for pedia tric (< 18 years old) and > 70 year old patie nts and patie nts that are NOT of stead [place] . Not Available [facility] [address] [facility] [address], [place], [address], 07/29/2024 10:05:04 07/25/20 24 07/25/2024 COMPR EHENS AYE METAB OLIC PANEL calcium 9.4 mg/dL 8.6-10 .2 Not Available [facility] [address] [facility] [address], [place], [address], 07/29/2024 10:05:04 07/25/20 24 07/25/2024 COMPR EHENS AYE METAB OLIC PANEL protein, total 6.3 gm/dL 6.4-8. 3 low Not Available [facility] [address] [facility] [address], [place], [address], 07/29/2024 10:05:04 07/25/20 24 07/25/2024 COMPR EHENS AYE METAB OLIC PANEL albumin 4.1 gm/dL 3.5-5. 2 Not Available [facility] [address] [facility] [address], [place], [address], 07/29/2024 10:05:04 07/25/20 24 07/25/2024 COMPR EHENS AYE METAB OLIC PANEL bilirubin, total 0.20 mg/dL 0.00-1 .20 Not Available [facility] [address] [facility] [address], [place], [address], 07/29/2024 10:05:04 07/25/20 24 07/25/2024 COMPR EHENS AYE METAB OLIC PANEL alkaline phosphatase (ALP) 143 U/L 39-117 high Not Available [facility] [address] [facility] [address], [place], [address], 07/29/2024 10:05:04 07/25/20 24 07/25/2024 COMPR EHENS AYE METAB OLIC PANEL aspartate aminotransfe rase (AST) 28 U/L 0-40 Not Available [facility] [address] [facility] [address], [place], [address], 07/29/2024 10:05:04 07/25/20 24 07/25/2024 COMPR EHENS AYE METAB OLIC PANEL alanine aminotransfe rase (ALT) 38 U/L 0-41 Not Available [facility] [address] [facility] [address], [place], [address], 07/29/2024 10:05:04 07/25/20 24 07/25/2024 COMPR EHENS AYE METAB OLIC PANEL A/G ratio (calculated) 1.9 ratio 1.0-2. [address] [facility] [address] [facility] [address], [place], [address], 07/29/2024 10:05:04 07/25/20 24 07/25/2024 COMPR EHENS AYE METAB OLIC PANEL globulin (calculated) 2.2 gm/dL 1.5-3. 8 Not Available [facility] [address] [facility] [address], [place], [address], 07/29/2024 10:05:04 07/25/20 24 07/25/2024 COMPR EHENS AYE METAB OLIC PANEL BUN/creatini ne ratio (calculated) 12.7 ratio 8.0-20 .[address] [facility] [address] [facility] [address], [place], [address], 07/29/2024 10:05:04 07/25/20 24 07/25/2024 COMPR EHENS AYE METAB OLIC PANEL serum hemolysis index SLIGHT LY HEMOLY ZED index normal abnormal Not Available [facility] [address] [facility] [address], [place], [address], 07/29/2024 10:05:04 07/25/20 24 07/25/2024 FOLAT E, SERUM folate 17.7 NG/mL 20 REFER ENCE RANGE : Michelle l: > 3.0 ng/mL Inter media te: 2.2 - 3.0 ng/mL Defic ient: < 2.2 ng/mL Not Available [facility] [address] [facility] [address], [place], [address], 07/29/2024 10:05:05 07/25/20 24 07/25/2024 IRON PANEL iron 54 mcg/d L Not Available [facility] [address] [facility] [address], [place], [address], 07/29/2024 10:05:06 07/25/20 24 07/25/2024 IRON PANEL UIBC 245 ug/dL 111-34 3 Not Available [facility] [address], [place], [address], 07/29/2024 10:05:06 07/25/20 24 07/25/2024 IRON PANEL total iron binding capacity 299.0 mcg/d L 250.0- 450.0 Not Available [facility] [address] [facility] [address], [place], [address], 07/29/2024 10:05:06 07/25/20 24 07/25/2024 IRON PANEL iron saturation (calculated) 18.1 % 15.0-5 5.0 Not Available [facility] [address] [facility] [address], [place], [address], 07/29/2024 10:05:06 07/25/20 24 07/25/2024 VITAM IN B12 vitamin B12 606 pg/mL 232-12 45 Not Available [facility] [address], [place], [address], 07/29/2024 10:05:06 07/25/20 24 07/25/2024 MICRO ALBUM IN:CR EATIN INE RATIO , RANDO M URINE microalbumin , urine 17.15 mcg/m L not applic able Not Available [facility] [address], [place], [address], 07/29/2024 10:05:07 07/25/20 24 07/25/2024 MICRO ALBUM IN:CR EATIN INE RATIO , RANDO M URINE creatinine, urine 58.8 mg/dL not applic able Not Available [facility] [address], [place], [address], 07/29/2024 10:05:07 07/25/20 24 07/25/2024 MICRO ALBUM IN:CR EATIN INE RATIO , RANDO M URINE microalbumin :creatinine ratio, random urine (calculated) 291.7 mg/gm _crea t. Michelle l: 0-29 mg/gm Moder ately incre ased: 30-30 0 mg/gm Sever ly incre ased: >300 mg/gm Not Available [facility] [address], [place], [address], 07/29/2024 10:05:07 02/20/20 24 01/25/2024 elect neftalyar diogr am No observ ation record ed. [email or web address] Not Available 2023 15:46:48 02/20/20 24 01/26/2024 MRI, brain , w/o contr ast No observ ation record ed. [facility] Not Available 2023 15:46:48 02/20/20 24 01/26/2024 MRI, cervi tino spine , w/o contr ast No observ ation record ed. [facility] Not Available 2023 15:46:48 02/20/20 24 01/26/2024 US, duple x, venou s, upper extre mity No observ ation record ed. [facility] Not Available 2023 15:46:48 02/20/20 24 01/26/2024 CT, angio gram, chest + abdom en + pelvi s, w/ contr ast No observ ation record ed. [facility] Not Available 2023 15:46:48 02/20/20 24 01/26/2024 CT, thora cic spine , w/o contr ast No observ ation record ed. [facility] Not Available 2023 15:46:48 02/20/20 24 01/26/2024 CT, head, w/o contr ast No observ ation record ed. [facility] Not Available 2023 15:46:48 02/20/20 24 01/26/2024 CT, cervi tino spine , w/o contr ast No observ ation record ed. [email or web address] Not Available 2023 15:46:47 02/20/20 24 01/26/2024 XR, chest , 1 view No observ ation record ed. [facility] Not Available 2023 15:46:48 02/29/20 24 01/29/2024 arielle alvarenga am No observ ation record ed. [facility] Not Available 2023 20:31:01 02/29/20 XR, chest , 1 view No observ ation record ed. [facility] Not Available 2023 13:45:18 03/08/20 24 03/06/2024 CT, chest , w/o contr ast No observ ation record ed. [facility] [address], [place], [address], 03/10/2024 19:11:11 05/29/20 24 05/29/2024 MAMMO , scree lambert, digit al, bilat eral No observ ation record ed. [facility] [address], [address], 07/25/2024 16:31:52 Result Notes None recorded. Problems Name Problem SNOMED Code Status Onset Date Resolution Date Notes Provider Name and Address Organization Details Recorded Time Low back pain 519463874 Active 2023 Radha Cheatham MD [address], [place], [address] , [facility] 4 16:27:00 Diabetic peripher al neuropat hy 617310302 Active 2023 Radha Cheatham MD [address], [place], [address] , [facility] 4 16:35:08 Diabetes mellitus 86421485 Active 2015 Not Available [facility] 4 09:38:44 [facility] hyperten paulino 01541658 Active 2015 Not Available [facility] 4 09:38:44 Hyperlip idemia 41261630 Active 2015 Not Available [facility] 4 09:38:44 Vitamin D deficien cy 34400907 Active 2015 Not Available [facility] 4 09:38:44 Tobacco dependen steven jimenez 874267587 Completed 201508/22/2018 told cardiolo gist he quit smoking on 05/23/18 Radha Cheatham MD [address], [place], [address] , [facility] 8 18:13:34 Menopaus e Active 2015 S/C JUAN 1989' Not Available [facility] 4 09:38:43 Family history of coronary arterios clerosis 553306323 Active 2015 Not Available [facility] 4 09:38:44 Depressi ve disorder 61610036 Completed 201505/11/2017 Radha Cheatham MD [address], [place], [address] , [facility] 7 17:43:59 Mixed anxiety and depressi ve disorder 228162165 Active 2015 Not Available [facility] 4 09:38:44 Chronic renal failure 87081778 Active 2016 Not Available [facility] 4 09:38:44 Microalb uminuria 062179080 Active 2017 Not Available [facility] 4 09:38:44 Coronary atherosc lerosis 995602947 Completed 201705/15/[address] chest 11/17/17 Radha Cheatham MD [address], [place], [address] , [facility] 8 15:00:13 Coronary arterios clerosis 29741062 Active [address] 11/17/17 Not Available [facility] 4 09:38:44 Sleep pattern disturba nce 32299337 Completed 201711/22/2018 cardiolo gist ordered home sleep study/re sults pending 07/30/18 Radha Cheatham MD [address], [place], [address] , [facility] 9 15:19:33 Ex-smoke r 8814763 Active 2017 quit 07/2018 Not Available [facility] 4 09:38:44 Sleep apnea 49839376 Active 2018 cardiolo gy started CPAP Not Available [facility] 4 09:38:44 Cholelit hiasis without obstruct ion 55324308 Active [address] chest 06/04/19 Not Available [facility] 4 09:38:44 Inguinal pain 080277554 Active 2019 Not Available [facility] 4 09:38:43 Edema of lower extremit y 172790482 Active 2020 Not Available [facility] 4 09:38:43 Osteoart hritis 153547537 Active 2021 Not Available [facility] 4 09:38:44 Long-ter m drug therapy Active 2021 Not Available [facility] 4 09:38:44 Family history of aneurysm of blood vessel of brain 23302268793 889479 Active 2021 Not Available [facility] 4 09:38:43 Benign hyperten paulino 74170572 Active 2021 Not Available [facility] 4 09:38:43 Mixed hyperlip idemia 185626919 Active 2021 Not Available [facility] 4 09:38:44 Solitary nodule of lung 288282240 Active 2022 Not Available [facility] 4 09:38:44 Hyperuri cemia 74103714 Active 2022 Not Available [facility] 4 09:38:44 Osteoart hritis of right hip joint 45126732226 9107 Active 2022 Not Available [facility] 4 09:38:44 Spinal stenosis in cervical region 74440848 Active 2023 Radha Cheatham MD [address], [place], [address] , [facility] 4 16:05:10 Jerry españa 674775756 Active 2023 Radha Cheatham MD [address], [place], [address] , [facility] 4 21:14:08 Anemia 752485819 Active 2023 Radha Cheatham MD [address], [place], [address] , [facility] 18:42:47 Notes:Some problems listed i n Documents: #[id number], #[id number], #[id number], #[id number], #[id number], #[id number], #[id number], #[id number], #[id number], #[id number], #[id number], #[id number], #[id number], #[id number], #[id number], #[id number], #[id number], #[id number] could not be added to this patient's chart. Please review these documents and add these problems to the patient's chart manually as needed. Problem Notes None recorded. Procedures Surgical History Date Name Laterality Status Provider Name and Address Organization Details Recorded Time 07/25/20 Diabetic Foot Exam completed Radha Cheatham MD [address], [place], [address], [facility] 07/25/2024 16:34:41 01/23/20 24 Diabetic Foot Exam completed Radha Cheatham MD [address], [place], [address], [facility] 01/23/2024 15:24:45 10/25/20 23 Diabetic Foot Exam completed Radha Cheatham MD [address], [place], [address], [facility] 10/25/2023 16:17:34 06/27/20 23 Diabetic Foot Exam completed Radha Cheatham MD [address], [place], [address], [facility] 06/27/2023 15:54:11 03/27/20 23 Diabetic Foot Exam completed Radha Cheatham MD [address], [place], [address], [facility] 03/27/2023 16:08:48 09/26/20 Diabetic Foot Exam completed Radha Cheatham MD [address], [place], [address], [facility] 09/26/2022 16:05:35 06/27/20 Diabetic Foot Exam completed Radha Cheatham MD [address], [place], [address], [facility] 06/27/2022 15:57:06 03/17/20 Diabetic Foot Exam completed Radha Cheatham MD [address], [place], [address], [facility] 03/17/2022 16:51:46 12/15/19 Diabetic Foot Exam completed Radha Cheatham MD [address], [place], [address], [facility] 12/15/2021 17:12:56 09/14/20 Diabetic Foot Exam completed Radha Cheatham MD [address], [place], [address], [facility] 09/14/2021 16:50:39 06/14/20 Diabetic Foot Exam completed Radha Cheatham MD [address], [place], [address], [facility] 06/14/2021 18:52:17 02/26/20 Diabetic Foot Exam completed Radha Cheatham MD [address], [place], [address], [facility] 02/25/2021 15:10:15 08/26/20 Diabetic Foot Exam completed Radha Cheatham MD [address], [place], [address], [facility] 08/26/2020 15:33:50 07/22/20 20 Diabetic Foot Exam completed Radha Cheatham MD [address], [place], [address], [facility] 05/27/2020 14:18:27 02/26/20 20 Diabetic Foot Exam completed Radha Cheatham MD [address], [place], [address], [facility] 02/26/2020 14:15:41 11/27/19 20 Diabetic Foot Exam completed Radha Cheatham MD [address], [place], [address], [facility] 11/27/2019 14:34:52 08/22/20 19 Diabetic Foot Exam completed Radha Cheatham MD [address], [place], [address], [facility] 08/22/2019 14:26:30 05/23/20 19 Diabetic Foot Exam completed Radha Cheatham MD [address], [place], [address], [facility] 05/23/2019 15:06:51 02/22/20 19 Diabetic Foot Exam completed Radha Cheatham MD [address], [place], [address], [facility] 02/21/2019 14:52:09 11/22/19 19 Diabetic Foot Exam completed Radha Cheatham MD [address], [place], [address], [facility] 11/22/2018 15:20:59 08/22/20 18 Diabetic Foot Exam completed Radha Cheatham MD [address], [place], [address], [facility] 08/22/2018 18:22:00 08/31/20 17 Date of Last Mammogram completed Francisca Shaikh [facility] 02/13/2018 14:55:20 12/29/19 17 Colonoscopy completed Colleen Hardy [facility] 05/21/2018 13:35:31 04/22/20 11 Date of Last Colonoscopy completed Francisca Shaikh [facility] 02/13/2018 14:55:30 Appendectomy completed Radha Cheatham MD [address], [place], [address], [facility] 05/12/2016 17:44:50 Total Hysterectomy completed Radha Cheatham MD [address], [place], [address], [facility] 05/12/2016 17:44:58 Imaging Results Imaging Date Name Status LastModified by Organization Details LastModified Time 01/25/2024 electrocardiogram completed Informa tion not available 02/21/2024 15:46:48 01/26/2024 MRI, brain, w/o contrast completed Information not available 02/21/2024 15:46:48 01/26/2024 MRI, cervical spine, w/o contrast completed Information not available 02/21/2024 15:46:48 01/26/2024 US, duplex, venous, upper extremity completed Information not available 02/21/2024 15:46:48 01/26/2024 CT, angiogram, chest + abdomen + pelvis, w/ contrast completed Information not available 02/21/2024 15:46:48 01/26/2024 CT, thoracic spine, w/o contrast completed Information not available 02/21/2024 15:46:48 01/26/2024 CT, head, w/o contrast completed Information not available 02/21/2024 15:46:48 01/26/2024 CT, cervical spine, w/o contrast completed Information not available 02/21/2024 15:46:47 01/26/2024 XR, chest, 1 view completed Informa tion not available 02/21/2024 15:46:48 01/29/2024 electrocardiogram completed Informa tion not available 02/29/2024 20:31:01 02/29/2024 XR, chest, 1 view completed Informa tion not available 02/29/2024 13:45:18 03/06/2024 CT, chest, w/o contrast completed [facility] [address], [place], [address], 03/10/2024 19:11:11 05/29/2024 MAMMO, screening, digital, bilateral completed [facility] [address] [place], [address], 07/25/2024 16:31:52 Procedure Notes None recorded. Medical Equipment None Reported. Allergies Allergen ID Allergen Name Allergen Category Reaction Reaction Severity Criticality Documentation Date Start Date Code Code System Note Provider Name and Address Organization Details Recorded Time 8113 Invokana medicatio n itching Not available Not available 04/02/2019 56242 64 RxNorm Not Available Not Available Not Available 8158 J[facility] medicatio n itching Not available Not available 04/19/2019 74225 59 RxNorm Not Available Not Available Not Available Medications Name Sig Start Date Stop Date Status Note LastModified by Organization Details LastModified Time atenol/ch guru tab 100-25mg 05/27 completed Not Available Not Available Not Available escitalop sanna oxalate 10 mg tabs 05/27 completed Not Available Not Available Not Available metformin hydrochlo ride er 500 mg tb24 05/27 completed Not Available Not Available Not Available Prescript ion - Prior Authoriza tion Request 04/24 completed Not Available Not Available Not Available candesart an cilexetil 16 mg tabs 05/27 completed Not Available Not Available Not Available fluconazo le 150 mg tabs 05/27 completed Not Available Not Available Not Available trazodone hydrochlo ride 50 mg tabs 05/27 completed Not Available Not Available Not Available atorvasta tin calcium 80 mg tabs 05/27 completed Not Available Not Available Not Available glimepiri de 2 mg tabs 05/27 completed Not Available Not Available Not Available losartan 50 mg tablet Take 1 tablet every day by oral route. 02/18 completed Not Available Not Available Not Available celecoxib 200 mg capsule TAKE 1 CAPSULE BY MOUTH DAILY NEEDED active Not Available Not Available No t Available amoxicill in 500 mg capsule TAKE 2 CAPSULES BY MOUTH NOW AND 1 EVERY 6 HOURS UNTIL GONE 03/27 completed Not Available Not Available Not Available furosemid e 40 mg tablet TAKE 1 TABLET BY MOUTH DAILY 2024 active Not Available Not Available Not Avai lable atorvasta tin 40 mg tablet Take 1 tablet every day by oral route. 08/22 completed Not Available Not Available Not Available metformin 500 mg tablet TAKE 1 TABLET BY MOUTH TWICE DAILY 06/27 completed Not Available Not Available Not Available atorvasta tin 80 mg tablet TAKE 1 TABLET BY MOUTH AT BEDTIME 01/27 completed changed to rosuvast atin 40mg qhs Not Available Not Available Not Available carvedilo l 25 mg tablet TAKE 1 TABLET BY MOUTH TWICE DAILY 2024 active Not Available Not Available Not Avai lable atenolol 100 mg-chlort halidone 25 mg tablet TAKE 1 TABLET BY MOUTH DAILY IN THE MORNING active Not Available Not Available No t Available atorvasta tin 20 mg tablet TAKE 1 TABLET BY MOUTH EVERY NIGHT AT BEDTIME 10/18 completed Not Available Not Available Not Available carvedilo l 12.5 mg tablet TAKE 1 TABLET BY MOUTH TWICE DAILY 10/24 completed Not Available Not Available Not Available trazodone 50 mg tablet TAKE 2 TABLETS BY MOUTH EVERY NIGHT AT BEDTIME active Not Available Not Available No t Available doxazosin 1 mg tablet TAKE 1 TABLET BY MOUTH DAILY AT BEDTIME 10/24 completed Not Available Not Available Not Available fluconazo le 150 mg tablet TAKE 1 TABLET BY MOUTH ONCE DAILY 05/27 completed Not Available Not Available Not Available hydrocodo ne 5 mg-acetam inophen 325 mg tablet TAKE 1 TO 2 TABLETS BY MOUTH EVERY 4 HOURS NEEDED FOR PAIN (MAX OF 10 IN A 24 HOUR PERIOD) 07/25 completed Not Available Not Available Not Available meloxicam 15 mg tablet Take 1 tablet every day by oral route as needed. 06/23 completed Not Available Not Available Not Available methylpre dnisolone 4 mg tablet TAKE 4 TABLETS BY MOUTH ONCE DAILY FOR 1 DAY THEN 3 ONCE DAILY FOR 1 DAY THEN 2 ONCE DAILY FOR 1 DAY THEN 1 ONCE DAILY FOR 1 DAY active Not Available Not Available No t Available atenolol 50 mg-chlort halidone 25 mg tablet TAKE 1 TABLET BY MOUTH EVERY DAY active Not Available Not Available No t Available amlodipin e 2.5 mg tablet TAKE 1 TABLET BY MOUTH DAILY IN THE MORNING 10/15/ 2023 11/06 /2023 completed Not Available Not Available Not Available amlodipin e 5 mg tablet Take 1 tablet every day by oral route in the morning. active Not Available Not Available No t Available allopurin ol 100 mg tablet TAKE 1 TABLET BY MOUTH DAILY 2024 active Not Available Not Available Not Avai lable aspirin 81 mg tablet,de layed release Take 1 tablet every day by oral route. 2023 active Not Available Not Available Not Avai lable glimepiri de 2 mg tablet TAKE 1 TABLET BY MOUTH IN THE MORNING active Not Available Not Available No t Available fenofibra te micronize d 134 mg capsule TAKE ONE CAPSULE BY MOUTH EVERY NIGHT AT BEDTIME 11/12 completed Not Available Not Available Not Available prednisol one acetate 1 % eye drops,tristan pension 11/14 completed Not Available Not Available Not Available Diflucan 100 mg tablet Take 1 tablet every day by oral route. 11/27 completed Not Available Not Available Not Available trazodone 100 mg tablet TAKE 1 TABLET BY MOUTH AT BEDTIME 2024 active Not Available Not Available Not Avai lable baclofen 10 mg tablet TAKE 1 TABLET BY MOUTH TWICE DAILY active Not Available Not Available No t Available amlodipin e 10 mg tablet TAKE 1 TABLET BY MOUTH DAILY IN THE MORNING active Not Available Not Available No t Available cephalexi n 500 mg capsule TAKE 1 CAPSULE BY MOUTH TWICE DAILY 04/25 completed Not Available Not Available Not Available Guido 128 5 % eye drops INSTILL 1 DROP INTO EACH EYE THREE TIMES DAILY 01/22 completed Not Available Not Available Not Available telmisart an 40 mg tablet Take 1 tablet every day by oral route. 05/23 completed Not Available Not Available Not Available Effexor XR 150 mg capsule,e xtended release Take 1 capsule every day by oral route. 01/02 completed Not Available Not Available Not Available candesart an 16 mg tablet TAKE 1 TABLET BY MOUTH IN THE MORNING 06/27 completed Not Available Not Available Not Available losartan 25 mg tablet Take 1 tablet every day by oral route. 07/31 completed increase d to 50 mg QD by cardiolo gist Not Available Not Available Not Available candesart an 32 mg tablet TAKE 1 TABLET BY MOUTH DAILY IN THE MORNING active Not Available Not Available No t Available gabapenti n 300 mg capsule TAKE 1 CAPSULE BY MOUTH 3 TIMES DAILY 10/24 completed Not Available Not Available Not Available lisinopri l 5 mg tablet Take 1 tablet every day by oral route. 06/27 completed changed to losartan 25 mg qd by cardiolo gist. patient complain ed of chronic cough. increase d from 2.5 mg by cardiolo gist (06/06/18) Not Available Not Available Not Available furosemid e 20 mg tablet TAKE 1 TABLET BY MOUTH DAILY IN THE MORNING 10/30 completed Not Available Not Available Not Available gabapenti n 100 mg capsule TAKE 2 CAPSULES BY MOUTH THREE TIMES DAILY 07/04 completed Not Available Not Available Not Available ketoconaz ole 2 % topical cream APPLY A SMALL DAB TO ALL TOENAILS TWICE DAILY active Not Available Not Available No t Available metformin ER 500 mg tablet,ex tended release 24 hr TAKE 2 TABLETS BY MOUTH TWICE DAILY WITH MEALS active Not Available Not Available No t Available lisinopri l 2.5 mg tablet Take 1 tablet every day by oral route. 06/06 completed increase d to 5 mg QD by cardiolo gist Not Available Not Available Not Available naproxen 500 mg tablet TAKE 1 TABLET BY MOUTH TWICE DAILY WITH MEALS 01/22 completed Not Available Not Available Not Available doxazosin 2 mg tablet Take 1 tablet every day by oral route at bedtime. 10/24 completed Not Available Not Available Not Available amoxicill in 875 mg-potass ium clavulana te 125 mg tablet Take 1 tablet every 12 hours by oral route. 10/05 completed Not Available Not Available Not Available Tylenol Extra Strength 500 mg tablet Take 1 tablet every 8 hours by oral route around the clock. 2022 active Not Available Not Available Not Avai lable Pneumovax -23 25 mcg/0.5 mL injection syringe PHARMACI ST ADMINIST ERED IMMUNIZA TION ADMINIST ERED AT TIME OF DISPENSI NG 08/26 completed Not Available Not Available Not Available escitalop sanna 10 mg tablet TAKE 1 TABLET BY MOUTH DAILY AT BEDTIME 2024 active Not Available Not Available Not Avai lable escitalop sanna 20 mg tablet TAKE 1 TABLET BY MOUTH NIGHTLY 02/12 completed Not Available Not Available Not Available ezetimibe 10 mg tablet TAKE 1 TABLET BY MOUTH DAILY 2024 active Not Available Not Available Not Avai lable Novolog FlexPen U-100 Insulin aspart 100 unit/mL (3 mL) subcutane ous 02/25 completed Not Available Not Available Not Available rosuvasta tin 40 mg tablet TAKE 1 TABLET BY MOUTH AT BEDTIME 2024 active Not Available Not Available Not Avai lable BD Ultra-Fin e Mini Pen Needle 31 gauge x 3/16 USE ONCE DAILY DIRECTED 2015 active Not Available Not Available Not Avai lable fenofibra te micronize d 43 mg capsule Take 1 capsule every day by oral route at bedtime. 02/08 completed Not Available Not Available Not Available BD Ultra-Fin e Short Pen Needle 31 gauge x 5/16 active Not Available Not Available Not Available ProAir HFA 90 mcg/actua tion aerosol inhaler Inhale 2 puffs every 8 hours by inhalati on route as needed. 2017 active Not Available Not Available Not Avai lable aripipraz ole 2 mg tablet Take 1 tablet every day by oral route at bedtime. active Not Available Not Available No t Available Humalog KwikPen (U-100) Insulin 100 unit/mL subcutane ous INJECT SUBCUTAN EOUSLY 5 UNITS 3 TIMES DAILY BEFORE MEALS PLUS SLIDING SCALE, ADD 1 UNIT FOR EVERY 25 BG OVER 200. MAX DAILY DOSE: 20 UNITS 2023 active Not Available Not Available Not Avai lable diclofena c 1 % topical gel APPLY 2 GRAMS TO THE AFFECTED AREA(S) BY TOPICAL ROUTE 4 TIMES PER DAY active Not Available Not Available No t Available Zyrtec 10 mg capsule Take 1 capsule every day by oral route at bedtime. 2018 active Not Available Not Available Not Avai lable Vitamin D3 125 mcg (5,000 unit) tablet Take 1 tablet every day by oral route. 07/03 completed Not Available Not Available Not Available Brilinta 90 mg tablet TAKE 1 TABLET BY MOUTH TWICE DAILY active Not Available Not Available No t Available Chantix Starting Month Box 0.5 mg (11)-1 mg (42) tablets in dose pack take 1 starter pack by oral route as directed 08/22 completed Not Available Not Available Not Available Invokana 100 mg tablet Take 1 tablet every day by oral route. 04/02 completed Not Available Not Available Not Available Farxiga 10 mg tablet Take 1 tablet every day by oral route in the morning. active Not Available Not Available No t Available Farxiga 5 mg tablet TAKE 1 TABLET BY MOUTH DAILY IN THE MORNING active Not Available Not Available No t Available Levemir FlexTouch U-100 Insulin 100 unit/mL (3 mL) subcutane ous pen INJECT 10 UNITS SUBCUTAN EOUSLY ONCE DAILY AT BEDTIME 02/25 completed Not Available Not Available Not Available Jardiance 10 mg tablet Take 1 tablet every day by oral route. 04/19 completed Not Available Not Available Not Available Tresiba FlexTouch U-100 insulin 100 unit/mL (3 mL) subcutane ous pen INJECT 20 UNITS SUBCUTAN EOUSLY ONCE DAILY AT BEDTIME active Not Available Not Available No t Available Aspercrem e (lidocain e HCl) 4 % topical Apply 1 applicat ion twice a day by topical route. 2023 active Not Available Not Available Not Avai lable Vraylar 1.5 mg capsule Take 1 capsule every day by oral route. 07/06 completed Not Available Not Available Not Available Shingrix (PF) 50 mcg/0.5 mL intramusc ular suspensio n, kit 04/19 completed Not Available Not Available Not Available Bydureon BCise 2 mg/0.85 mL subcutane ous auto-inje ctor Inject 2 mg every week by subcutan eous route. 06/14 completed Not Available Not Available Not Available Steglatro 5 mg tablet Take 1 tablet every day by oral route. 05/27 completed Not Available Not Available Not Available Fluzone High-Dose 2019-20 (PF) 180 mcg/0.5 mL intramusc ular syringe ADM 0.5ML IM UTD 05/27 completed Not Available Not Available Not Available Baqsimi 3 mg/actuat ion nasal spray USE DIRECTED FOR LOW BLOOD SUGAR active Not Available Not Available No t Available Nexletol 180 mg tablet Take 1 tablet every day by oral route. 06/27 completed Not Available Not Available Not Available Fluzone High-Dose Quad (PF) 240 mcg/0.7 mL IM syringe PHARMACI ST ADMINIST ERED IMMUNIZA TION ADMINIST ERED AT TIME OF DISPENSI NG 08/26 completed Not Available Not Available Not Available Vitals Date Recorded Body height Heart rate Respiratory rate Body temperature Body mass index (BMI) Body weight Provider Name and Address Organization Details Last Updated DateTime 4 167.64 cm 85 /min 16 /min 97.3 [degF] 31.3 kg/m2 57993.[address] [facility] 15:40:01 Date Recorded Systolic blood pressure Diastolic blood pressure Provider Name and Address Organization Details Last Updated DateTime 02/21/2024 166 mm[Hg] 87 mm[Hg] Radha Cheatham MD [address], [place], [address] 02/21/2024 15:58:40 Date Recorded Body height Heart rate Respiratory rate Body temperature Body mass index (BMI) Body weight Provider Name and Address Organization Details Last Updated DateTime 4 167.64 cm 71 /min 16 /min 97.8 [degF] 30.8 kg/m2 95268.[address] [facility] 4 15:28:53 Date Recorded Systolic blood pressure Diastolic blood pressure Provider Name and Address Organization Details Last Updated DateTime 02/28/2024 131 mm[Hg] 75 mm[Hg] Radha Cheatham MD [address], [place], [address], [facility] 02/28/2024 16:00:32 Date Recorded Body height Body mass index (BMI) Body weight Body temperature Respiratory rate Heart rate Provider Name and Address Organization Details Last Updated DateTime 4 167.64 cm 31.2 kg/m2 52409.3 3 g 98.3 [degF] 16 /min 71 /min Genna Montero [facility] 4 15:55:00 Date Recorded Systolic blood pressure Diastolic blood pressure Provider Name and Address Organization Details Last Updated DateTime 04/25/2024 145 mm[Hg] 86 mm[Hg] Radha Cheatham MD [address], [place], [address] 04/25/2024 16:22:33 Date Recorded Body height Respiratory rate Body temperature Body mass index (BMI) Body weight Provider Name and Address Organization Details Last Updated DateTime 07/25/2024 167.64 cm 16 /min 97.6 [degF] 31.2 kg/m2 73963.[address] [facility] 4 16:06:07 Date Recorded Heart rate Systolic blood pressure Diastolic blood pressure Provider Name and Address Organization Details Last Updated DateTime 07/25/2024 78 /min 141 mm[Hg] 76 mm[Hg] Radha Cheatham MD [address], [place], [address] 07/25/2024 16:31:44 Date Recorded Body height Body temperature Respiratory rate Heart rate Body mass index (BMI) Body weight Systolic blood pressure Diastolic blood pressure Provider Name and Address Organization Details Last Updated DateTime 167.64 cm 97.5 [degF] 16 /min 74 /min 30.3 kg/m2 63261.3 7 g 139 mm[Hg] 76 mm[Hg] Genna Montero [facility] 4 15:50:50 Social History Question Answer Notes LastModified by Organizat ion Details LastModified Time Tobacco Smoking Status Former Smoker quit 07/2018 Not Available [facility] 08/21/2020 03:12:13 Do You Have An Advance Directive? No [id number] Information not available 08/21/2020 What Is Your Level Of Alcohol Consumption? None Information not available 02/25/2021 What Is Your Level Of Caffeine Consumption? Occasional Information not available 02/25/2021 Commercial Sex Work No Information not available 11/26/2020 In The 14 Days Before Symptom Onset, Have You Had Close Contact With A Laboratory-confir med COVID-19 While That Case Was Ill? No [id number] Information not available 08/21/2020 In The 14 Days Before Symptom Onset, Have You Had Close Contact With A Person Who Is Under Investigation For COVID-19 While That Person Was Ill? No [id number] Information not available 08/21/2020 Have You Been To An Area Known To Be High Risk For COVID-19? No [id number] Information not available 08/21/2020 Are You Currently Employed? Yes [id number] Information not available 08/21/2020 Which Illicit Or Recreational Drugs Have You Used? No [id number] Information not available 08/21/2020 Have You Directly Handled Bats, Rodents, Or Primates From Ebola Endemic Areas? No Information not available 11/26/2020 Have You Processed Blood Or Body Fluids From An Ebola Virus Disease Patient Without Appropriate PPE? No Information not available 11/26/2020 Have You Had Household Contact With An Ebola Virus Disease Patient? No Information not available 11/26/2020 Have You Had Direct Contact With A Body In An Ebola-affected Area Without Appropriate PPE? No Information not available 11/26/2020 Have You Had Percutaneous (e.g. Needle Stick) Or Mucous Membrane Exposure To Blood Or Body Fluids From An Ebola Virus Disease Patient? No Information not available 11/26/2020 Have You Had Other Close Contact With An Ebola Virus Disease Patient In Health Care Facilities Or Community Settings? No Information not available 11/26/2020 Do You Reside In Or Have You Traveled To An Area Where Ebola Virus Transmission Is Active? No Information not available 11/26/2020 Are There Any Guns Present In Your Home? No Information not available 11/26/2020 High Number Of Sexual Partners No Information not available 11/26/2020 History Of Inconsistent/no Condom Use No Information not available 11/26/2020 Live Alone Or With Others? Alone Information not available 05/12/2016 Marital Status Informatio n not available 05/12/2016 What Was The Date Of Your Most Recent Tobacco Screening? 12/15/2021 Information not available 12/15/2021 Mother With HIV? No Informat ion not available 11/26/2020 Performs Monthly Self-breast Exam? Yes Information no t available 11/26/2020 Seat Belts Used Routinely Yes Information not available 11/26/2020 Sexual Partner Has HIV? No Information not available 11/26/2020 Sexual Partner Uses IV Drugs? No Information not available 11/26/2020 Smoke Alarm In Home Yes Information not available 11/26/2020 At What Age Did You Start Smoking Tobacco? 18 [id number] Information not available 08/21/2020 How Much Tobacco Do You Smoke? 1 PPW [id number] Information not available 08/21/2020 Do You Use Sunscreen Routinely? No Information not available 11/26/2020 Have You Used IV Drugs? No Information not available 11/26/2020 Sex: Unknown Functional Status Question Answer Note LastModified by Organization D etails LastModified Time Are you able to care for yourself? Yes [id number] Information n ot available 08/21/2020 Mental Status None recorded. Family History Relationship Description Onset Age of this Age Resolved Age Notes LastModified by Organization Details LastModified Time Father Malignant tumor of lung 64 [email or web address] Not available 2015 17:43:29 Mother Coronary arterioscler osis [email or web address] Not available 2015 17:44:15 Mother Malignant tumor of colon [email or web address] Not available 2015 17:44:26 Medical History No medical history recorded. Gynecological History Statement/Question Response Date of Last Mammogram 08/31/2017 Date of Last Colonoscopy 04/22/2011 Obstetrics History GPAL:G 0 P 0 0 0 0 Immunizations Vaccine Type Date Status Note Provider Nam e and Address Organization Details Recorded Time Influenza, split virus, quadrivalent, preservative 8 completed Not Available [facility] 11/25/2023 09:38:44 Pneumococcal conjugate PCV 13 8 completed Not Available [facility] 11/25/2023 09:38:45 zoster recombinant 9 completed Not Available [facility] 11/25/2023 09:38:44 Tdap 8 completed Not Available [facility] 11/25/2023 09:38:45 zoster live 9 completed Not Available [facility] 11/25/2023 09:38:45 Influenza, high-dose, trivalent, PF 9 completed Not Available [facility] 11/25/2023 09:38:45 Influenza, split virus, quadrivalent, preservative 0 completed Not Available [facility] 11/25/2023 09:38:44 pneumococcal polysaccharide PPV23 0 completed Not Available [facility] 11/25/2023 09:38:45 SARS-COV-2 (COVID-19) vaccine, UNSPECIFIED 1 completed Not Available [facility] 11/25/2023 09:38:44 Influenza, high-dose, quadrivalent, PF 1 completed Not Available [facility] 11/25/2023 09:38:44 Pneumococcal conjugate PCV 13 6 completed Not Available [facility] 11/25/2023 09:38:45 Influenza, split virus, quadrivalent, preservative 6 completed Not Available [facility] 11/25/2023 09:38:44 COVID-19, mRNA, LNP-S, PF, 100 mcg/0.5mL dose or 50 mcg/0.25mL dose 1 completed Not Available [facility] 11/25/2023 09:38:44 COVID-19, mRNA, LNP-S, bivalent, PF, 30 mcg/0.3 mL dose 2 completed Not Available [facility] 11/25/2023 09:38:44 Pneumococcal conjugate PCV20, polysaccharide [id number] conjugate, adjuvant, PF 2 completed Not Available [facility] 11/25/2023 09:38:44 Influenza, high-dose, trivalent, PF 2 completed Not Available [facility] 11/25/2023 09:38:45 Influenza, high-dose, quadrivalent, PF 3 completed Not Available [facility] 11/25/2023 09:38:44 COVID-19, mRNA, LNP-S, PF, roberto-sucrose, 30 mcg/0.3 mL 3 completed Not Available [facility] 11/25/2023 09:38:45 RSV, recombinant, protein subunit RSVpreF, adjuvant reconstituted, 0.5 mL, PF 3 completed Not Available [facility] 11/25/2023 09:38:45 Influenza, high-dose, quadrivalent, PF 4 completed Colleen Hardy [facility] 08/08/2024 19:59:03 Influenza, high-dose, trivalent, PF 7 completed Not Available [facility] 11/25/2023 09:38:45 pneumococcal polysaccharide PPV23 7 completed Not Available [facility] 11/25/2023 09:38:45 Past Encounters Encounter ID Performer Location Encounter Start Date Encounter Closed Date Diagnosis/Indication Diagnosis SNOMED-CT Code Diagnosis ICD10 Code Diagnosis Note [id number] Radha Cheatham MD [facility], [facility] [address] [facility] [address] [place] [address] 05/12/2016 17:03:39 05/12/2016 18:25:13 Depressive disorder 62052942 F32.9 Menopause 570319553 Z78. 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 0 Tobacco de pendence, continuous 436452533 F17.290 Vitamin D deficiency 347 08061 E55.9 Hyperlipidemia 68172152 E78.5 Diabetes mellitus 500056 09 E11.9 Mixed anxi ety and depressive disorder 002940168 F41.8 Viral screening 30800388 4 Z11.59 Active or passive immunization 326431431 Z23 Screening for malignant neoplasm of colon 179381880 Z12.11 [id number] Radha Cheatham MD [facility], [facility] [address] [place] [address] 11/10/2016 16:03:55 11/10/2016 16:45:24 Essential hypertension 89034707 I10 Diabetes mellitus 294950 09 E11.9 Vitamin D deficiency 347 94573 E55.9 Screening mammography 24 024802 Z12.31 Screening for malignant neoplasm of colon 015129834 Z12.11 Osteopenia 878319974 M85 .80 [id number] Radha Cheatham MD [employer] [facility], [facility] [address] [place] [address] 12/15/2016 10:15:28 12/15/2016 10:51:02 Disorder of rotator cuff 616796471 M75.102 Chronic renal failure 90 125755 N18.9 Menopause 866745149 Z78. 0 [id number] Radha Cheatham MD [employer] [facility], [facility] [address] [place] [address] 02/08/2017 15:46:36 02/08/2017 17:04:49 Essential hypertension 20557528 I10 Diabetes mellitus 149971 09 E11.9 Hyperlipidemia 78979395 E78.5 Vitamin D deficiency 347 78633 E55.9 Tobacco de pendence, continuous 481259102 F17.290 Disorder o f rotator cuff 296160015 M75.102 [id number] Radha Cheatham MD [employer] [facility], [facility] [address] [place] [address] 05/11/2017 16:56:17 05/11/2017 17:51:17 Diabetes mellitus 44615505 E11.9 Essential hypertension 69587195 I10 Hyperlipidemia 60342597 E78.5 Vitamin D deficiency 347 20294 E55.9 Tobacco de pendence, continuous 603993314 F17.290 Screening mammography 24 178884 Z12.31 [id number] Radha Cheatham MD [employer] [facility], [facility] [address] [place] [address] 08/14/2017 16:44:41 08/14/2017 17:15:19 Essential hypertension 39791137 I10 per pt had optometry eval 07/2017 Diabetes mellitus 787358 09 E11.69 per pt had optometry eval 07/2017 Hyperlipidemia 01502325 E78.5 Vitamin D deficiency 347 21135 E55.9 Tobacco de pendence, continuous 603948292 F17.290 Screening for malignant neoplasm of cervix 004522608 Z12.4 per pt had PAP 05/2017 Dr Gunn Screening mammography 24 517889 Z12.31 per pt had mammogram 05/2017 @ [facility] Screening for malignant neoplasm of colon 147526185 Z12.11 last C scope 12/29/16 , good till 2021 Active or passive immunization 254505415 Z23 [id number] Radha Cheatham MD [facility] [employer] [address] [place] [address] 11/14/2017 15:23:14 11/14/2017 15:49:26 Essential hypertension 47138254 I10 per pt had optometry eval 07/2017 Diabetes mellitus 139757 09 E11.69 per pt had optometry eval 07/2017 Hyperlipidemia 77050201 E78.5 increase atorva to 40 , recheck 6 weeks Vitamin D deficiency 347 12796 E55.9 Tobacco de pendence, continuous 473396919 F17.290 Microalbuminuria 0022746 06 R80.9 [id number] Radha Cheatham MD [facility] [address] [place] [address] 02/13/2018 14:47:26 02/13/2018 15:24:59 Hyperlipidemia 68249577 E78.5 last LDL 10/2017 , recheck Diabetes mellitus 736788 09 E11.69 per pt had optometry eval 07/2017 Essential hypertension 33225527 I10 per pt had optometry eval 07/2017 Chronic renal failure 90 432863 N18.9 Mixed anxi ety and depressive disorder 636987642 F41.8 Screening mammography 24 467288 Z12.31 per pt had mammogram 08/2017 @ [facility] Screening for malignant neoplasm of colon 864614546 Z12.11 last C scope 12/29/16 , good till 2021 Active or passive immunization 253011418 Z23 [id number] Radha Cheatham MD [facility], [facility] [address] [place] [address] 05/15/2018 14:46:48 05/15/2018 15:18:51 Adult health examination 482044696 Z00.01 Diabetes mellitus 869134 09 E11.69 per pt had optometry eval 07/2017 Essential hypertension 16295534 I10 per pt had optometry eval 07/2017 Hyperlipidemia 02937734 E78.5 last LDL 10/2017 , recheck Vitamin D deficiency 347 34504 E55.9 last level 10/17/17 Tobacco de pendence, continuous 382778154 F17.290 education , last LDCT 11/17/17 , last PFT 08/14/17 Menopause 376786956 Z78. 0 last DEXA 01/19/17 Chronic renal failure 90 884739 N18.9 stable Microalbuminuria 5160770 06 R80.9 on RYDER inh Mixed anxi ety and depressive disorder 667343796 F41.8 No SI , No HI Coronary arteriosclerosis 73312015 I25.[address] chest 11/17/17 Screening mammography 24 588520 Z12.31 per pt had mammogram 08/2017 @ [facility] Screening for malignant neoplasm of cervix 403483896 Z12.4 per pt had PAP 05/2017 Dr Gunn Screening for malignant neoplasm of colon 112176740 Z12.11 last C scope 12/29/16 , good till 2021 Active or passive immunization 331127074 Z23 [id number] Radha Cheatham MD [employer], [facility] [address] [place] [address] 08/22/2018 17:22:22 08/22/2018 18:30:08 Essential hypertension 33196550 I10 per pt had optometry eval 07/2017 Diabetes mellitus 829544 09 E11.69 per pt had optometry eval 07/2017 Mixed anxi ety and depressive disorder 054571942 F41.8 No SI , No HI Hyperlipidemia 99053320 E78.5 last LDL 06/12/18 , Screening mammography 24 723297 Z12.31 per pt had mammogram 08/2018 @ [facility] Screening for malignant neoplasm of cervix 170298597 Z12.4 per pt had PAP 05/2017 Dr Gunn Screening for malignant neoplasm of colon 797570359 Z12.11 last C scope 12/29/16 , good till 2021 Active or passive immunization 391113395 Z23 [id number] Radha Cheatham MD [employer], [facility] [address] [place] [address] 11/22/2018 14:41:10 11/22/2018 15:35:57 Diabetes mellitus 31305437 E11.69 per pt had optometry eval 07/2017 Hyperlipidemia 54703840 E78.5 last LDL 06/12/18 , Essential hypertension 17339642 I10 per pt had optometry eval 07/2017 Menopause 781826432 Z78. 0 last DEXA 01/19/17 Screening mammography 24 253815 Z12.31 per pt had mammogram 08/2018 @ [facility] Screening for malignant neoplasm of cervix 288144760 Z12.4 per pt had PAP 05/2017 Dr Gunn Screening for malignant neoplasm of colon 513202132 Z12.11 last C scope 12/29/16 , good till 2021 Active or passive immunization 652862933 Z23 [id number] Radha Cheatham MD [facility] [employer] [address] [place] [address] 02/21/2019 14:32:34 02/21/2019 14:57:16 Essential hypertension 17074109 I10 per pt had optometry eval 07/2017 Diabetes mellitus 613009 09 E11.69 per pt had optometry eval 11/2018last STEPHEN 11/22/18 Hyperlipidemia 50165086 E78.5 last LDL 06/12/18 , Vitamin D deficiency 347 92319 E55.9 last level 06/12/18 Menopause 880742662 Z78. 0 last DEXA 01/19/17 Microalbuminuria 3157090 06 R80.9 on ARB Coronary arteriosclerosis 28680909 I25.[address] chest 11/17/17 Screening mammography 24 418580 Z12.31 per pt had mammogram 08/2018 @ [facility] Screening for malignant neoplasm of cervix 700944626 Z12.4 per pt had PAP 05/2017 Dr Gunn Screening for malignant neoplasm of colon 645329160 Z12.11 last C scope 12/29/16 , good till 2021 [id number] Radha Cheatham MD [facility], [facility] [address] [place] [address] 05/23/2019 14:32:00 05/23/2019 15:10:08 Adult health examination 675746894 Z00.01 Diabetes mellitus 189730 09 E11.69 per pt had optometry eval 02/2019 Dr Sahara MITCHELL 11/22/18 Essential hypertension 45419065 I10 per pt had optometry eval 07/2017 Hyperlipidemia 64661919 E78.5 last LDL 06/12/18 , Vitamin D deficiency 347 05502 E55.9 last level 06/12/18 Menopause 622391000 Z78. 0 last DEXA 02/21/19 Chronic renal failure 90 531394 N18.9 stable Microalbuminuria 3885936 06 R80.9 on ARB Mixed anxi ety and depressive disorder 692144967 F41.8 No SI , No HI Coronary arteriosclerosis 76375888 I25.[address] chest 11/17/17 Ex-smoker 1190956 Z87.89 1 quit smoking 05/2018last LDCT 11/2017 , recheck Sleep apnea 61648984 G47 .30 good compliance Screening mammography 24 486705 Z12.31 per pt had mammogram 08/2018 @ [facility] Screening for malignant neoplasm of cervix 074326329 Z12.4 per pt had PAP 2018 Dr Mcgovern Screening for malignant neoplasm of colon 773912401 Z12.11 last C scope 12/29/16 , good till 2021 Active or passive immunization 626097392 Z23 up to date [id number] Radha Cheatham MD [employer], [facility] [address] [place] [address] 08/22/2019 14:03:56 08/22/2019 14:32:46 Candidiasis of vagina 06544219 B37.3 Benign hypertension 1072 5009 I10 will decrease chlorthali done to 12.5 Hyperlipidemia 16915388 E78.5 last LDL 06/12/18 , Diabetes mellitus 682649 09 E11.69 per pt had optometry eval 08/2019 Dr Sahara MITCHELL 11/22/18 Screening mammography 24 863790 Z12.31 per pt had mammogram 08/2018 @ [facility] Active or passive immunization 583854505 Z23 up to date Screening for malignant neoplasm of colon 948613918 Z12.11 last C scope 12/29/16 , good till 2021 [id number] Radha Cheatham MD [employer], [facility] [address] [place] [address] 11/27/2019 14:05:17 11/27/2019 14:41:47 Diabetes mellitus 60298528 E11.69 per pt had optometry eval 08/2019 Dr Sahara MITCHELL 11/22/18 Essential hypertension 77656467 I10 per pt had optometry eval 07/2017incr ease candesarta n , recheck BP 2 weeks Ex-smoker 9293150 Z87.89 1 quit smoking 05/2018last LDCT 06/03/19 Hyperlipidemia 60938958 E78.5 last LDL 06/12/18 , Menopause 127316649 Z78. 0 last DEXA 02/21/19 Mixed anxi ety and depressive disorder 434065896 F41.8 No SI , No HI Vitamin D deficiency 347 50572 E55.9 last level 06/12/18 Body mass index 25-29 - overweight 405142210 Z68.27 education Screening mammography 24 190303 Z12.31 per pt had mammogram 08/2018 @ [facility] Screening for malignant neoplasm of cervix 754271286 Z12.4 per pt had PAP 2019 Dr Mcgovern Screening for malignant neoplasm of colon 404984047 Z12.11 last C scope 12/29/16 , good till 2021 Active or passive immunization 995071944 Z23 up to date [id number] Radha Cheatham MD [employer], [facility] [address] [facility] [address] [place] [address] 02/26/2020 13:59:10 02/26/2020 14:23:13 Essential hypertension 40954700 I10 per pt had optometry eval 08/15/19in crease syedaa n , recheck BP 2 weeks Diabetes mellitus 063075 09 E11.69 per pt had optometry eval 08/2019 Dr Sahara MITCHELL 11/27/19 Chronic renal failure 90 992827 N18.9 stable Coronary arteriosclerosis 37638482 I25.[address] chest 11/17/17 Mixed anxi ety and depressive disorder 216956656 F41.8 No SI , No HI Hyperlipidemia 86162698 E78.5 last LDL 11/27/19 Vitamin D deficiency 347 06691 E55.9 last level 11/27/19 Body mass index 25-29 - overweight 131366822 Z68.27 education Screening mammography 24 908511 Z12.31 per pt had mammogram 07/05/19 Screening for malignant neoplasm of cervix 875912923 Z12.4 per pt had PAP 2019 Dr Mcgovern Screening for malignant neoplasm of colon 176923456 Z12.11 last C scope 12/29/16 , good till 2021 Active or passive immunization 242182480 Z23 up to date [id number] Radha Cheatham MD [facility] [employer] [address] [place] [address] 05/27/2020 14:03:29 05/27/2020 14:28:56 Adult health examination 758816959 Z00.01 Diabetes mellitus 214201 09 E11.69 per pt had optometry eval 08/2019 Dr Sahara MITCHELL 11/27/19 Essential hypertension 21093317 I10 per pt had optometry eval 08/15/19in crease candesarta n , recheck BP 2 weekslast EKG 02/26/20 Ex-smoker 0896148 Z87.89 1 quit smoking 05/2018last LDCT 06/03/19 Chronic renal failure 90 181497 N18.9 stable Coronary arteriosclerosis 34527361 I25.[address] chest 11/17/17no CP 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 0 last DEXA 02/21/19 Microalbuminuria 6873539 06 R80.9 on ARB Mixed anxi ety and depressive disorder 870690141 F41.8 No SI , No HI Sleep apnea 14302094 G47 .30 good compliance Vitamin D deficiency 347 07414 E55.9 last level 11/27/19 Screening mammography 24 297202 Z12.31 per pt had mammogram 07/05/19 Screening for malignant neoplasm of cervix 283761745 Z12.4 per pt had PAP 2018 Dr Mcgovern Screening for malignant neoplasm of colon 703889765 Z12.11 last C scope 12/29/16 , good till 2021 Active or passive immunization 729178227 Z23 up to date Keloid scar 94813156 L91 .0 [id number] Radha Cheatham MD [facility], [facility] [address] [place] [address] 08/26/2020 14:29:56 08/26/2020 15:48:48 Inguinal pain 238811639 R10.2 Rt , ?? trochanter ic bursitis Essential hypertension 44330581 I10 per pt had optometry eval 08/15/19in crease candesarta n , recheck BP 2 weekslast EKG 02/26/20 Diabetes mellitus 762921 09 E11.69 per pt had optometry eval 08/2019 Dr Sahara MITCHELL 11/27/19 Coronary arteriosclerosis 21392166 I25.[address] chest 11/17/17no CP Body mass index 25-29 - overweight 303220036 Z68.27 education Mixed anxi ety and depressive disorder 123918294 F41.8 No SI , No HI Screening mammography 24 185761 Z12.31 per pt had mammogram 07/05/19 Screening for malignant neoplasm of cervix 446109372 Z12.4 per pt had PAP 2019 Dr Mcgovern Screening for malignant neoplasm of colon 821585121 Z12.11 last C scope 12/29/16 , good till 2021 Active or passive immunization 623841224 Z23 up to date [id number] Radha Cheatham MD [employer] [facility], [facility] [address] [place] [address] 11/26/2020 14:22:04 11/26/2020 14:45:38 Lumbar radiculopathy 966229223 M54.16 had X ray ,with Rt foot tinglingwi ll check MRI Edema of l ower extremity 964399428 R60.0 Essential hypertension 13602016 I10 per pt had optometry eval 08/15/19in crease candesarta n , recheck BP 2 weekslast EKG 02/26/20 Diabetes mellitus 759607 09 E11.69 per pt had optometry eval 08/2020 Dr Sahara MITCHELL 10/2920las t A1c 11/03/20e en endo Hyperlipidemia 64024099 E78.5 last LDL 05/27/20 Screening mammography 24 890837 Z12.31 per pt had mammogram 10/28/20 Screening for malignant neoplasm of cervix 100123337 Z12.4 per pt had PAP 2019 Dr Mcgovern Screening for malignant neoplasm of colon 005588232 Z12.11 last C scope 12/29/16 , good till 2021 Active or passive immunization 721979969 Z23 up to date [id number] Radha Cheatham MD [employer], [facility] [address] [place] [address] 02/25/2021 14:31:50 02/25/2021 15:14:59 Essential hypertension 47008946 I10 per pt had optometry eval 10/2020 increase candesarta n , recheck BP 2 weeks last EKG 01/27/21 Diabetes mellitus 120238 09 E11.69 per pt had optometry eval 10/2020 Dr Mckay anguiano MAU 01/28/21 last A1c 01/27/21 seen endo Hyperlipidemia 85211666 E78.5 last LDL 05/27/20 Mixed anxi ety and depressive disorder 742740919 F41.8 No SI , No HI Sleep apnea 05850748 G47 .30 good compliance Vitamin D deficiency 347 79060 E55.9 last level 11/27/19 Chronic renal failure 90 998936 N18.9 stable 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 64465750 K80.20 asymptomat ic Body mass index 25-29 - overweight 432903493 Z68.27 education Screening mammography 24 028776 Z12.31 per pt had mammogram 10/28/20 Screening for malignant neoplasm of cervix 400626259 Z12.4 per pt had PAP 2019 Dr Mcgovern Screening for malignant neoplasm of colon 097920998 Z12.11 last C scope 12/29/16 , good till 2021 Active or passive immunization 930595562 Z23 up to date [id number] Radha Cheatham MD [employer], [facility] [address] [place] [address] 06/14/2021 17:48:28 06/14/2021 19:12:24 Adult health examination 688160907 Z00.01 Diabetes mellitus 260576 09 E11.69 per pt had optometry eval 10/2020 Dr Mckay MITCHELL 01/28/21 last A1c 04/14/21 seen endo Essential hypertension 79524741 I10 per pt had optometry eval 10/2020 increase candesarta n , recheck BP 2 weeks last EKG 01/27/21 Ex-smoker 5948810 Z87.89 1 quit smoking 05/2018last LDCT 06/05/20 Family his tory of coronary arteriosclerosis 869773730 Z82.49 seen cardiology , had stress testNo CP Hyperlipidemia 27612607 E78.5 last LDL 04/14/21 Chronic renal failure 90 473644 N18.9 stable Coronary arteriosclerosis 82726483 I25.10 no CP 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 trochanter ic bursitis Menopause 393800869 Z78. 0 last DEXA 02/21/19 Microalbuminuria 6593564 06 R80.9 on ARB Mixed anxi ety and depressive disorder 696862039 F41.8 No SI , No HI Sleep apnea 73508275 G47 .30 good compliance Vitamin D deficiency 347 65359 E55.9 last level 05/27/20 Screening mammography 24 949360 Z12.31 per pt had mammogram 10/28/20 Screening for malignant neoplasm of cervix 041055954 Z12.4 per pt had PAP 2020 Dr Mcgovern Screening for malignant neoplasm of colon 773460925 Z12.11 last C scope 12/29/16 , good till 2021 Active or passive immunization 052926659 Z23 up to date [id number] Radha Cheatham MD [employer], [facility] [address] [place] [address] 09/14/2021 16:36:45 09/14/2021 17:00:23 Essential hypertension 61571334 I10 per pt had optometry eval 10/2020 increase candesarta n , recheck BP 2 weeks last EKG 01/27/21 Body mass index 25-29 - overweight 618388031 Z68.27 education Chronic renal failure 90 226968 N18.9 stable Coronary arteriosclerosis 62760161 I25.10 no CP Diabetes mellitus 486657 09 E11.69 per pt had optometry eval 10/2020 Dr Bashir last STEPHEN 08/31/21 last A1c 08/31/21 seen endo Hyperlipidemia 83569689 E78.5 last LDL 08/31/21 Microalbuminuria 6927817 06 R80.9 on ARB Vitamin D deficiency 347 61767 E55.9 last level 05/27/20 Screening mammography 24 640320 Z12.31 per pt had mammogram 10/28/20 Screening for malignant neoplasm of cervix 890858673 Z12.4 per pt had PAP 2020 Dr Mcgovern Screening for malignant neoplasm of colon 708860878 Z12.11 last C scope 12/29/16 , good till 2021 Active or passive immunization 911852677 Z23 up to date [id number] Radha Cheatham MD [employer] [address] [place] [address] 12/15/2021 16:49:48 12/15/2021 17:38:07 Diabetes mellitus 53077955 E11.69 per pt had optometry eval 10/2020 Dr Bashir last STEPHEN 12/02/21 last A1c 12/02/21 seen endo Essential hypertension 90235642 I10 per pt had optometry eval 10/2020 increase candesarta n , recheck BP 2 weeks last EKG 01/27/21 Body mass index 25-29 - overweight 976965306 Z68.27 education Chronic renal failure 90 426561 N18.9 stable Coronary arteriosclerosis 78448557 I25.10 no CP Ex-smoker 5253745 Z87.89 1 quit smoking 05/2018last LDCT 06/28/21 Hyperlipidemia 04383040 E78.5 last LDL 08/31/21 Menopause 685121780 Z78. 0 last DEXA 06/21/21 Microalbuminuria 1381011 06 R80.9 on ARB Mixed anxi ety and depressive disorder 696600762 F41.8 No SI , No HI Osteoarthritis 260304485 M19.90 stable Sleep apnea 82753688 G47 .30 good compliance Vitamin D deficiency 347 00125 E55.9 last level 05/27/20 Screening mammography 24 814490 Z12.31 per pt had mammogram 10/28/20 Screening for malignant neoplasm of cervix 590258393 Z12.4 per pt had PAP 2020 Dr Mcgovern Screening for malignant neoplasm of colon 717297568 Z12.11 last C scope 12/29/16 , good till 2021 Active or passive immunization 552301224 Z23 up to date [id number] Radha Cheatham MD [facility] [address] [place] [address] 03/17/2022 16:20:41 03/17/2022 17:06:06 Family history of aneurysm of blood vessel of brain 8509373614 3600607 Z82.49 sister Diabetes mellitus 277534 09 E11.69 per pt had optometry eval 12/2021 Dr Bashir last STEPHEN 12/02/21 last A1c 12/02/21 seen endo Essential hypertension 90764357 I10 per pt had optometry eval 12/2021 BP 2 weeks last EKG 11/2021 with cardiology Hyperlipidemia 66337151 E78.5 last LDL 12/02/21 was above goal , will add nexletol Mixed anxi ety and depressive disorder 327681332 F41.8 No SI , No HI Vitamin D deficiency 347 35837 E55.9 last level 05/27/20 Long-term drug therapy 655334063 Z79.899 metformin Ex-smoker 5313417 Z87.89 1 quit smoking 05/2018last LDCT 06/28/21 Screening mammography 24 470740 Z12.31 per pt had mammogram 12/22/21 Screening for malignant neoplasm of cervix 566162519 Z12.4 per pt had PAP 2020 Dr Mcgovern Screening for malignant neoplasm of colon 096292769 Z12.11 last C scope 12/29/16 , good till 2021 Active or passive immunization 420700273 Z23 up to date [id number] Radha Cheatham MD [employer] [facility], [facility] [address] [place] [address] 06/27/2022 15:00:15 06/27/2022 16:07:49 Adult health examination 373367647 Z00.01 Benign hypertension 1072 5009 I10 increase candesarta n to 32 Insomnia 452971383 G47.0 0 Mixed hyperlipidemia 267 181821 E78.2 last LDL 05/11/22 Mixed anxi ety and depressive disorder 403728188 F41.8 No SI , No HI Diabetes mellitus 658854 09 E11.69 per pt had optometry eval 12/2021 Dr Bashir last STEPHEN 05/11/22 last A1c 05/11/22 seen endo Body mass index 25-29 - overweight 625692287 Z68.27 education 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 99362843 K80.20 asymptomat ic Chronic renal failure 90 009328 N18.9 stableavoi d NSAIDS OR IV dye Coronary arteriosclerosis 61071169 I25.10 no CP Screening mammography 24 197346 Z12.31 per pt had mammogram 12/22/21 Screening for malignant neoplasm of cervix 884996284 Z12.4 per pt had PAP 2020 Dr Mcgovern Screening for malignant neoplasm of colon 977566695 Z12.11 last C scope 03/22/2022 , good for 5 years Active or passive immunization 961495204 Z23 up to date Osteoarthritis 896807323 M19.90 stable Sleep apnea 77455639 G47 .30 good compliance Vitamin D deficiency 347 75485 E55.9 last level 05/27/20 [id number] Radha Cheatham MD [employer], [employer] [address] [place] [address] 09/26/2022 15:08:36 09/26/2022 16:11:23 Mixed anxiety and depressive disorder 764670315 F41.8 No SI , No HI Benign hypertension 1072 5009 I10 increase candesarta n to 32 Body mass index 25-29 - overweight 271721080 Z68.27 education Chronic renal failure 90 329384 N18.9 stableavoi d NSAIDS OR IV dye Coronary arteriosclerosis 96312771 I25.10 no CP Diabetes mellitus 749335 09 E11.69 per pt had optometry eval 12/2021 Dr Bashir last STEPHEN 08/09/22 last A1c 08/09/22 seen endo Screening mammography 24 486151 Z12.31 per pt had mammogram 12/22/21 Screening for malignant neoplasm of cervix 430151636 Z12.4 per pt had PAP 2020 Dr Mcgovern Screening for malignant neoplasm of colon 294246698 Z12.11 last C scope 03/22/2022 , good for 5 years Active or passive immunization 790711661 Z23 up to date [id number] Radha Cheatham MD [employer], [employer] [address] [place] [address] 12/28/2022 15:28:30 12/28/2022 16:12:52 Diabetes mellitus 83906858 E11.69 per pt had optometry eval 10/2022 Dr Bashir last STEPHEN 08/09/22 last A1c 08/09/22 seen endo Benign hypertension 1072 5009 I10 add amlodipine 2.5 qamBP 2 weeks Body mass index 25-29 - overweight 461495283 Z68.27 education Chronic renal failure 90 810034 N18.9 stableavoi d NSAIDS OR IV dye Hyperlipidemia 40504931 E78.5 last LDL 08/09/22 Menopause 083796396 Z78. 0 last DEXA 06/21/21 Screening mammography 24 248748 Z12.31 per pt had mammogram 12/22/21 Screening for malignant neoplasm of cervix 327886012 Z12.4 per pt had PAP 2020 Dr Mcgovern Screening for malignant neoplasm of colon 407528009 Z12.11 last C scope 03/22/2022 , good for 5 years Active or passive immunization 116525323 Z23 up to date Solitary n odule of lung 843050345 R91.[address] 06/28/21 [id number] Radha Cheatham MD [employer], [facility] [address] [place] [address] 03/27/2023 15:31:00 03/27/2023 16:28:03 Benign hypertension 07174266 I10 on the higher side todayBP 2 weekslast EKG 12/01/21 Body mass index 25-29 - overweight 914029584 Z68.29 education Chronic renal failure 90 040047 N18.9 stableavoi d NSAIDS OR IV dye Coronary arteriosclerosis 41532848 I25.10 no CP Hyperlipidemia 88495336 E78.5 last LDL 08/09/22 Diabetes mellitus 754372 09 E11.69 per pt had optometry eval 10/2022 Dr Bashir last STEPHEN 08/09/22 last A1c 02/23/23 seen endo Long-term drug therapy 542206777 Z79.899 metformin Solitary n odule of lung 409982207 R91.[address] 01/05/23 , recheck 1 year Vitamin D deficiency 347 38256 E55.9 last level 05/27/20 Screening mammography 24 617366 Z12.31 per pt had mammogram 03/27/23 Screening for malignant neoplasm of cervix 382255503 Z12.4 per pt had PAP 2020 Dr Mcgovern Screening for malignant neoplasm of colon 881781459 Z12.11 last C scope 03/22/2022 , good for 5 years Active or passive immunization 841177200 Z23 up to date [id number] Radha Cheatham MD [employer] [address] [place] [address] 06/27/2023 15:00:43 06/27/2023 16:05:50 Adult health examination 208858479 Z00.01 Diabetes mellitus 229390 09 E11.69 per pt had optometry eval 10/2022 Dr Bashir last STEPHEN 08/09/22 last A1c 02/23/23 seen endo Benign hypertension 1072 5009 I10 on the higher side todayBP 2 weekslast EKG 12/01/21 Chronic renal failure 90 447344 N18.9 stableavoi d NSAIDS OR IV dye 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 20423530 K80.20 asymptomat ic Coronary arteriosclerosis 43531215 I25.10 no CP Edema of l ower extremity 612502907 R60.0 stable on low salt Ex-smoker 2751408 Z87.89 1 quit smoking 05/2018last LDCT 01/05/23 Hyperlipidemia 57699201 E78.5 last LDL 08/09/22 Inguinal pain 510369764 R10.2 Rt , ?? trochanter ic bursitis Long-term drug therapy 641341834 Z79.899 metformin Menopause 015290558 Z78. 0 last DEXA 06/21/21 Microalbuminuria 7884437 06 R80.9 on ARB Mixed anxi ety and depressive disorder 232808661 F41.8 No SI , No HIstill feels downwill try to boost with vraylar Osteoarthritis 255840826 M19.90 stable Sleep apnea 08868764 G47 .30 good compliance Solitary n odule of lung 129209188 R91.[address] 01/05/23 , recheck 1 year Vitamin D deficiency 347 19031 E55.9 last level 05/27/20 Screening mammography 24 518846 Z12.31 per pt had mammogram 03/27/23 Screening for malignant neoplasm of cervix 070725408 Z12.4 per pt had PAP 2020 Dr Mcgovernasy mptomatic Screening for malignant neoplasm of colon 902229278 Z12.11 last C scope 03/22/2022 , good for 5 years Active or passive immunization 714675813 Z23 up to date Numbness of hand 1078012 04 R20.0 Rt hand [id number] Radha Cheatham MD [employer] [facility], [facility] [address] [place] [address] 09/11/2023 15:40:16 09/11/2023 17:02:51 Osteoarthritis of right hip joint 5110915014 64287 M16.11 Benign hypertension 1072 5009 I10 on the higher side todayincre ase amlodipine BP 2 weekslast EKG 12/01/21 [id number] Radha Cheatham MD [employer], [facility] [address] [place] [address] 10/25/2023 15:49:25 10/25/2023 16:26:30 Type 2 diabetes mellitus without complication 031843342 E11.9 Benign hypertension 1072 5009 I10 on the higher side todayadd doxizosinB P 2 weekslast EKG 12/01/21 Menopause 316115250 Z78. 0 last DEXA 10/19/23 Vitamin D above reference range 615889142 R89.8 Hyperuricemia 17620793 E 79.0 Screening mammography 24 050613 Z12.31 per pt had mammogram 03/27/23 Screening for malignant neoplasm of cervix 587903817 Z12.4 per pt had PAP 2020 Dr Cuadra mptomatic Screening for malignant neoplasm of colon 991142827 Z12.11 last C scope 03/22/2022 , good for 5 years Active or passive immunization 291557222 Z23 up to date [id number] Radha Cheatham MD [employer], [facility] [address] [place] [address] 01/23/2024 14:45:38 01/23/2024 15:30:56 Low back pain 127968423 M54.50 L spine X ray 11/11/23 , MRI co nt' gabapentin , mobic , add baclofen , send to pain management Benign hypertension 1072 5009 I10 on the higher side todayincre ase doxizosinB P 2 weekslast EKG 12/01/21 Chronic renal failure 90 183708 N18.9 stableavoi d NSAIDS OR IV dye Hyperlipidemia 44073745 E78.5 last LDL 06/30/23 Long-term drug therapy 309274365 Z79.899 metformin Mixed anxi ety and depressive disorder 678521495 F41.8 No SI , No HI Solitary n odule of lung 291170237 R91.[address] 01/05/23 , recheck 1 year Screening mammography 24 626313 Z12.31 per pt had mammogram 03/27/23 Screening for malignant neoplasm of cervix 949214852 Z12.4 per pt had PAP 2020 Dr Cuadra mptomatic Screening for malignant neoplasm of colon 279938093 Z12.11 last C scope 03/22/2022 , good for 5 years Active or passive immunization 784017711 Z23 up to date Diabetes mellitus 175451 09 E11.69 per pt had optometry eval 09/2023 Dr Bashir last STEPHEN 08/09/22 last A1c 02/23/23 seen endo [id number] Radha Cheatham MD [employer], [facility] [address] [place] [address] 02/13/2024 15:27:30 02/13/2024 16:30:26 Unsteady when walking 62977887 R26.89 Spinal caio nosis in cervical region 43680664 M48.02 Accidental fall 15324910 2 W19.XXXA Diabetes mellitus 013431 09 E11.69 per pt had optometry eval 09/2023 Dr Bashir last STEPHEN 08/09/22 last A1c 10/25/23 seen endo Mixed anxi ety and depressive disorder 091071960 F41.8 No SI , No HI Benign hypertension 1072 5009 I10 on the low side todaydecre ase doxazosinB P 2 weekslast EKG 12/01/21 Active or passive immunization 717297950 Z23 up to date [id number] Radha Cheatham MD [employer], [facility] [address] [place] [address] 02/21/2024 15:23:13 02/21/2024 16:05:43 Edema of lower extremity 654324170 R60.0 stable on low saltRTC 2-3 days if not better Benign hypertension 1072 5009 I10 on the high side todaychang e atenolol to carvedilol BP 2 weekslast EKG 01/25/24 Spinal caio nosis in cervical region 57256265 M48.02 seeing neurosurge ry next week Chronic renal failure 90 095213 N18.9 stableavoi d NSAIDS OR IV dye [id number] Radha Cheatham MD [facility], [employer] [address] [place] [address] 02/28/2024 15:00:36 02/28/2024 16:10:01 Benign hypertension 72057243 I10 on the high side todaychang e atenolol to carvedilol BP 2 weekslast EKG 01/25/24 Edema of l ower extremity 326897919 R60.0 resolved on higher dose lasixstabl e on low saltRTC 2-3 days if not better [id number] Radha Cheatham MD [facility], [employer] [address] [place] [address] 04/25/2024 15:04:14 04/25/2024 16:28:13 Edema of lower extremity 606112712 R60.0 restart lasix 40RTC 2-3 days if not better Benign hypertension 1072 5009 I10 on the high side todayBP 2 weekslast EKG 01/25/24 Coronary arteriosclerosis 01035847 I25.10 no CP Diabetes mellitus 478864 09 E11.69 per pt had optometry eval 09/2023 Dr Bashir last STEPHEN 08/09/22 last A1c 10/25/23 seen endo Hyperlipidemia 67688783 E78.5 last LDL 06/30/23 Chronic renal failure 90 676897 N18.9 stableavoi d NSAIDS OR IV dye Screening mammography 24 283853 Z12.31 per pt had mammogram 03/27/23 Solitary n odule of lung 509479928 R91.[address] 01/05/23 , resolved Vitamin D deficiency 347 41001 E55.9 last level 06/30/23sto p Vit D Screening for malignant neoplasm of cervix 879005307 Z12.4 per pt had PAP 2020 Dr Mcgovernasy mptomatic Screening for malignant neoplasm of colon 893432924 Z12.11 last C scope 03/22/2022 , good for 5 years Active or passive immunization 374194893 Z23 up to date [id number] Radha Cheatham MD [employer] [address] [place] [address] 07/25/2024 15:58:23 07/25/2024 16:41:20 Adult health examination 707107004 Z00.01 Benign hypertension 1072 5009 I10 on the high side today ,increase doxazosinB P 2 weekslast EKG 01/25/24 Chronic renal failure 90 995178 N18.9 stableavoi d NSAIDS OR IV dye Coronary arteriosclerosis 14940974 I25.10 no CP Diabetes mellitus 597501 09 E11.69 per pt had optometry eval 01/2024 Dr Bashir last STEPHEN 08/09/22 last A1c 04/26/24 seen endo Edema of l ower extremity 829220570 R60.0 on lasix 40RTC 2-3 days if not better Ex-smoker 5543567 Z87.89 1 quit smoking 05/2018last LDCT 01/05/23had CTA 01/26/24 Anemia 647411522 D64.9 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 90876506 K80.20 asymptomat ic Hyperuricemia 65471945 E 79.0 04/26/24 Long-term drug therapy 841767075 Z79.899 metformin Menopause 577077912 Z78. 0 last DEXA 10/19/23 Microalbuminuria 2401441 06 R80.9 on ARB Mixed anxi ety and depressive disorder 766921707 F41.8 No SI , No HI Mixed hyperlipidemia 267 019800 E78.2 last LDL 04/26/24 Osteoarthritis 046290264 M19.90 stable Osteoarthr itis of right hip joint 9605811744 29159 M16.11 S/P THR 06/24/24 Sleep apnea 14197148 G47 .30 good compliance Solitary n odule of lung 144027779 R91.[address] 01/05/23 , resolved Spinal caio nosis in cervical region 66222632 M48.02 seeing neurosurge ry next week Vitamin D deficiency 347 40939 E55.9 last level 04/26/24on Vit D OTC Low back pain 191314425 M54.50 L spine X ray 11/11/23 , MRI co nt' gabapentin , mobic , add baclofen , send to pain management Screening mammography 24 085074 Z12.31 per pt had mammogram 05/29/24 Screening for malignant neoplasm of cervix 319164995 Z12.4 per pt had PAP 2020 Dr Cuadra mptomatic Screening for malignant neoplasm of colon 628077014 Z12.11 last C scope 03/22/2022 , good for 5 years Active or passive immunization 085312413 Z23 up to date ,flu shot Advance di rective discussed with patient 078728208 Z71.89 education Diabetic p eripheral neuropathy 998296073 E11.40 recheck B12 [id number] Radha Cheatham MD [employer], [facility] [address] [place] [address] 10/24/2024 14:59:56 10/24/2024 16:24:05 Cerebrovascular accident 620232047 I63.9 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 1251478069 0290838 I67.1 Benign hypertension 1072 5009 I10 better with Increase amlodipine BP 2 weekslast EKG 01/25/24 Diabetes mellitus 163635 09 E11.69 per pt had optometry eval 01/2024 Dr Bashir last STEPHEN 08/09/22 last A1c 07/25/24 seen endo Low back pain 862541479 M54.50 L spine X ray 11/11/23 , MRI co nt' gabapentin , mobic , add baclofen , send to pain management Active or passive immunization 200525920 Z23 up to date ,flu shot Essential hypertension 33715007 I10 per pt had optometry eval 12/2021 BP 2 weeks last EKG 11/2021 with cardiology Health Concerns Section Related Observation LastModified by Organization Detai ls LastModified Time None Recorded Concern Status LastModified by Organization Details LastModified Time None Recorded Advance Directives Directive N: Payers Encounter Date Sequence Insurance Name Policy Number Policy Luo Covered Member ID Luo Member ID Guarantor Name 02/21/[address] [facility] (MEDICARE REPLACEMENT/A DVANTAGE - PPO) [id number] Reese Fields [id number] Reese Fields 04/25/[address] [facility] (MEDICARE REPLACEMENT/A DVANTAGE - PPO) [id number] Reese Montalvo Fields [id number] Reese Montalvo Donnie 07/25/[address] [facility] (MEDICARE REPLACEMENT/A DVANTAGE - PPO) [id number] Reese Albakins [id number] Reese Montalvo Fields 10/24/[address] [facility] (MEDICARE REPLACEMENT/A DVANTAGE - PPO) [id number] Reese Montalvo Donnie [id number] Reese Montalvo Donnie Notes Date Note Type Note Provider Name and Address Organization Details Recorded Time 02/21/2024 text/html Hypertension F/UReported bypatient.Medications: taking medications as directed; no side effects from medication Lifestyle:regular exercise; limiting/avoiding salt; compliant with low salt diet Associated Symptoms:no dizziness; no lightheadedness; no chest pain; no shortness of breath; no palpitations; no edema; no calf pain with exertion; no headache went to ER for leg swelling , No SOB Radha Cheatham MD [address] [facility] [address], [place], [address], [facility] 02/21/2024 16:01:39 02/28/2024 text/html Hypertension F/UReported bypatient.Medications: taking medications as directed; no side effects from medication Lifestyle:regular exercise; limiting/avoiding salt; compliant with low salt diet Associated Symptoms:no dizziness; no lightheadedness; no chest pain; no shortness of breath; no palpitations; no edema; no calf pain with exertion; no headache leg edema is better , No SOB Radha Cheatham MD [address] [facility] [address], [place], [address], [facility] 02/28/2024 16:02:01 04/25/2024 text/html Hypertension F/UReported bypatient.Medications: taking medications as directed; no side effects from medication Lifestyle:regular exercise; limiting/avoiding salt; compliant with low salt diet Associated Symptoms:no dizziness; no lightheadedness; no chest pain; no shortness of breath; no palpitations; no edema; no calf pain with exertion; no headache leg swelling , No PND Radha Cheatham MD [address], [place], [address], [facility] [facility] 04/25/2024 16:23:18 07/25/2024 text/html Hypertension F/UReported bypatient.Medications: taking medications as directed; no side effects from medication Lifestyle:regular exercise; limiting/avoiding salt; compliant with low salt diet Associated Symptoms:no dizziness; no lightheadedness; no chest pain; no shortness of breath; no palpitations; no edema; no calf pain with exertion; no headacheMedicare Annual Wellness VisitReported bypatient.Diet and Nutrition:healthy diet Fracture Risk:no history of fractures; no recent explained fracture; no sudden unexplained fractures; no previous musculoskeletal injuries Physical Activity:exercises on a regular basis; recent increase in physical activity; good physical condition; discussed exercise habits Depression Risk:never feels sad, empty, or tearful; no loss of interest in activities; no significant changes in weight; no sleep disturbances or insomnia; no agitation; no loss of energy; no feelings of worthlessness or guilt; no thoughts of suicide; no history of depression; no history of mood disorders Orientation:no disorientation to time; no disorientation to date; no disorientation to place Concentration and Memory:no decreased concentrating ability; no memory lapses or loss; does not forget words Speech/Motor difficulties:no speech difficulties; no difficulty expressing formulated concepts; no difficulty with fine manipulative tasks; no difficulty writing/copying; no slowed reaction time; does not knock things over when trying to pick them up Hearing:no loss of hearing Vision:no vision problems Activities of Daily Living:able to bathe with limited or no assistance; able to contol urination and bowels; able to dress with limited or no assistance; able to feed self with limited or no assistance; able to get out of chair or bed with limited or no assistance; able to groom with limited or no assistance; able to toilet with limited or no assistance Instrumental Activities of Daily Living:able to do house work with limited or no assistance; able to grocery shop with limited or no assistance; able to manage medications with limited or no assistance; able to manage money with limited or no assistance; able to prepare meals with limited or no assistance; able to use the phone with limited or no assistance Falls Risk Assessment:no frequent falls while walking; no fall in the past year; no fall since last visit; no dizziness/vertigo Home Safety:use of seatbelts; no vision or hearing loss while driving Radha Cheatham MD [address], [place], [address], [facility] 07/25/2024 16:37:43 10/24/2024 text/html Hospitalization Contact RecordReported bypatient.Follow Update of discharge: (Please enter in format 'MM/DD/YYYY') (10/22/24); date of contact: (Please enter in format 'MM/DD/YYYY') (10/23/24)Hypertension F/UReported bypatient.Medications: taking medications as directed; no side effects from medication Lifestyle:regular exercise; limiting/avoiding salt; compliant with low salt diet Associated Symptoms:no dizziness; no lightheadedness; no chest pain; no shortness of breath; no palpitations; no edema; no calf pain with exertion; no headache went to ER 10/20/24 for vision problem and ^ BP , inpt till 10/22/24 , Dx ischemic CVA and Lt ICA aneurysm , Increased coreg and amlodipine , stopped doxazosin Radha Cheatham MD [address], [place], [address], [facility] 10/24/2024 16:18:39 OBGyn Episode No OBEpisode recorded.
--- OUTSIDE RECORDS SUMMARY | 2025-02-28 11:38 | XMS_ITS | Clinical Summary ---
Author Organization [facility] Address [address] [place] [id number] Care Team Providers Care Vocational Rehabilitation Technician Name Role Phone Radha Cheatham MD Primary Care Provider [phone] Social History Tobacco Use Types Packs/Day Years Used Date Smoking Tobacco: Never Assessed Comments Unknown Sex and Gender Information Value Date Recorded Sex Assigned at Not on file Legal Sex Female 6:50 PM CDT Gender Identity Not on file Sexual Orientation Not on file Plan of Treatment Health Maintenance Due Date Last Done Comments Colorectal Cancer Screening Colonoscopy (10 Years) 1950 Hepatitis C 1968 Annual Medicare Wellness Visit 2014 COVID-19 Vaccine ( season) 2024 08/06/2021, 01/19/2021, 01/14/2021, Additional history exists RSV Immunization or 60+ Years (1 - 1-dose 75+ series) 2024 DTaP, Tdap and Td Vaccines (2 - Td or Tdap) 08/06/2028 08/06/2018 Zoster Vaccines Completed 03/05/2019, 12/03/2018 Pneumococcal Vaccine: 50+ Years Completed 08/21/2020, 08/21/2018, 08/14/2017, Additional history exists Dexa Scan (General) Completed 06/21/2021, 06/14/2021, 02/21/2019, Additional history exists Meningococcal B Vaccine Aged Out No l onger eligible based on patient's age to complete this topic Meningococcal Vaccine Aged Out No micheal rosa eligible based on patient's age to complete this topic RSV Immunizations Under 20 Months Aged Out No longer eligible based on patient's age to complete this topic Procedures Procedure Name Priority Date/Time Associated Diagnosis Comments BONE DENSITY/DEXA Routine 06/21/2021 2:3 0 PM CDT Asymptomatic postmenopausal state from Last 3 Months or Most Recently Relevant to Health Maintenance Results * BONE DENSITY/DEXA (06/21/2021 2:30 PM CDT) Anatomical Region Laterality Modality Bone Mammography 06/21/2021 3:18 PM CDT Impressions 06/21/2021 3:19 PM CDT Impression: BMD measured at AP lumbar spine, both total hips and both femoral necks at WHO category level of normal. Referred By: RADHA CHEATHAM Interpreted By: Yao Thorne MD, 06/21/2021 3:18 PM Narrative 06/21/2021 3:19 PM CDT Examination: DEXA Bone densitometry EXAM DATE: 06/21/2021 1:48 PM Clinical history: Postmenopausal. Vitamin D use. Prior hysterectomy. Technique: DEXA bone minimal density evaluation was performed in the AP projection over the lumbar spine and over both hips in the AP projection utilizing standard imaging techniques. Assessment: The BMD measured at the AP spine L1-L4 is 0.998 g/cm? with a T-score of -0.4 and a Z-Score of 1.1. Bone density is up to 10% below young normal. This patient is considered normal according to the World Health Organization (WHO) criteria. Fracture risk is low. The BMD measured at the femur total left is 0.883 g/cm? with a T-score of -0.5 and a Z-Score of 0.2. Bone density is up to 10% below young normal. This patient is considered normal according to the World Health Organization (WHO) criteria. Fracture risk is low. The BMD measured at the left femoral neck is 0.739 g/sq cm resulting in a T score of -1.0 and a Z score of 0.0, values at the WHO category level of normal. The BMD measured at the femur total right is 0.955 g/cm? with a T-score of 0.1 and aZ-Score of 0.7. Bone density is up to 10% below young normal. This patient is considered normal according to the World Health Organization (WHO) criteria. Fracture risk is low. The BMD measured at the right femoral neck is 0.747 g/sq cm resulting in a T score of -0.9 and a Z score of 0.0, values at the WHO category level of normal. Fracture results: 10 year probability of major osteoporotic fracture 4% and of hip fracture 0.5%. Recommendations: All patients should ensure an adequate intake of dietary calcium and vitamin D. The NOF recommend adults under the age of 50 need 1000 mg of calcium and 400-800 IU of vitamin D daily. Effective therapy for the prevention and treatment of osteoporosis include biphosphonates. Follow-up: People with diagnosed cases of osteoporosis or at high risk for fracture should have regular bone mineral density test. For patients eligible for Medicare, routine testing is allowed once every 2 years. Testing frequency can be increased to one year for patients who have rapidly progressing disease, those who are receiving or discontinuing medical therapy to restore bone mass, or have additional risk factors. Based on these results, a followup exam is recommended in no earlier than 2 years. Procedure Note Yao Thorne MD - 06/21/2021 Examination: DEXA Bone densitometry EXAM DATE: 06/21/2021 1:48 PM Clinical history: Postmenopausal. Vitamin D use. Prior hysterectomy. Technique: DEXA bone minimal density evaluation was performed in the APprojection over the lumbar spine and over both hips in the AP projectionutilizing standard imaging techniques. Assessment: The BMD measured at the AP spine L1-L4 is 0.998 g/cm? with a T-score of-0.4 and a Z-Score of 1.1. Bone density is up to 10% below youngnormal. This patient is considered normal according to the World HealthOrganization (WHO) criteria. Fracture risk is low. The BMD measured at the femur total left is 0.883 g/cm? with a T-score of-0.5 and a Z-Score of 0.2. Bone density is up to 10% below youngnormal. This patient is considered normal according to the World HealthOrganization (WHO) criteria. Fracture risk is low. The BMD measured at the left femoral neck is 0.739 g/sq cm resulting in aT score of -1.0 and a Z score of 0.0, values at the WHO category level ofnormal. The BMD measured at the femur total right is 0.955 g/cm? with a T-score of0.1 and aZ-Score of 0.7. Bone density is up to 10% below young normal.This patient is considered normal according to the World HealthOrganization (WHO) criteria. Fracture risk is low. The BMD measured at the right femoral neck is 0.747 g/sq cm resulting in aT score of -0.9 and a Z score of 0.0, values at the WHO category level ofnormal. Fracture results: 10 year probability of major osteoporotic fracture 4%and of hip fracture 0.5%. Recommendations: All patients should ensure an adequate intake of dietary calcium andvitamin D. The NOF recommend adults under the age of 50 need 1000 mg ofcalcium and 400-800 IU of vitamin D daily. Effective therapy for theprevention and treatment of osteoporosis include biphosphonates. Follow-up: People with diagnosed cases of osteoporosis or at high risk for fractureshould have regular bone mineral density test. For patients eligible forMedicare, routine testing is allowed once every 2 years. Testing frequencycan be increased to one year for patients who have rapidly progressingdisease, those who are receiving or discontinuing medical therapy torestore bone mass, or have additional risk factors. Based on these results, a followup exam is recommended in no earlier than2 years. Impression: BMD measured at AP lumbar spine, both total hips and both femoral necks atWHO category level of normal. Referred By: RADHA CHEATHAM Interpreted By: Yao Thorne MD, 06/21/2021 3:18 PM Radha Cheatham MD DEXA Final Result from Last 3 Months or Most Recently Relevant to Health Maintenance Insurance [facility] [employer] [place] [address] Care Teams Vocational Rehabilitation Technician Relationship Specialty Start Date End Date Radha Cheatham MD PCP - General INTERNAL MEDICINE 06/15/21
[2025-02-28] MEDS: COSYNTROPIN 0.25 MG/ML VIAL IM (11:50)
[2025-02-28 12:11] LABS: Hemoglobin 12.2 g/dL (12.0-15.0); Mean Corpuscular HGB Conc 32.1 g/dl (32-36); Mean Corpuscular Hemoglobin 26.3 pg (26-34); Mean Corpuscular Volume 81.9 fl (80-100); Platelet Count Result 217 k/mm3 (150-375); Red Blood Count 4.64 M/mm3 (4.2-5.4); White Blood Count 7.1 K/mm3 (4.5-10.0)
[2025-02-28 12:22] LABS: Alanine Aminotransferase 91 U/L (6-35); Albumin Level 4.1 g/dL (3.5-5.1); Alkaline Phosphatase 100 U/L (38-126); Anion Gap 8 mmol/L (4-12); Aspartate Amino Transferase 55 U/L (14-36); Bilirubin,Total 0.8 mg/dL (0.2-1.3); Blood Urea Nitrogen 25 mg/dL (7-17); Calcium 9.2 mg/dL (8.4-10.2); Carbon Dioxide 33 mmol/L (22-30); Chloride 101 mmol/L (98-107); Cholesterol 128 mg/dL (0-200); Estimated Glomerular Filt Rate 22; Glucose 163 mg/dL (65-110); HDL Direct 50 mg/dL; Potassium 3.8 mmol/L (3.4-5.0); Sodium 142 mmol/L (137-145); Triglycerides 107 mg/dL (<150)
[2025-02-28 12:33] LABS: LDL Cholesterol Direct 40 mg/dL
[2025-02-28 12:53] LABS: Thyroid Stimulating Hormone 0.599 uIU/mL (0.465-4.680)
[2025-02-28 13:01] LABS: Free T4 Free Thyroxine 1.03 ng/dL (0.78-2.19)
[2025-02-28 17:31] LABS: Creatinine Urine 92.7 mg/dL
[2025-02-28 17:53] LABS: MALB Creatinine Ratio 301.9 mg/g (0-30); Microalbumin Urine Random 279.9 mg/L (0-16.7)
== END 2025-02-28 11:22 | disposition home or self-care (01) ==
PROVIDERS: PCP Internal Medicine; Visit Provider Internal Medicine
DX: E78.5 Hyperlipidemia, unspecified (principal); E11.9 Type 2 diabetes mellitus without complications; I10 Essential (primary) hypertension; E55.9 Vitamin D deficiency, unspecified; R79.89 Other specified abnormal findings of blood chemistry; Z71.3 Dietary counseling and surveillance
CPT/HCPCS: 36415; 80053; 80061; 82043; 82533; 84439; 84443; 85027; 96372; J0834